=== PATIENT | male | born 1960 | race Caucasian/White ===

== ENCOUNTER 2017-11-16 05:33 | Outpatient (RCR) | payer BC, SELFPAY ==
[2017-11-16] MEDS: Normal Saline Flush 10 ML SYR IVP (11:40)
[2017-11-16] MEDS: Heparin 500 UNITS/5 ML SYRINGE IV (11:40)
[2017-11-16 12:05] LABS: Abs Immature Grans 0.01 k/cumm (0.0-0.09); Absolute Basophil Count 0.02 k/cumm (0.0-0.2); Absolute Eosinophil Count 0.16 k/cumm (0.0-0.7); Absolute Lymphocyte Count 2.14 k/cumm (1.2-3.4); Absolute Monocyte Count 0.56 k/cumm (0.11-0.7); Absolute Neutrophil Count 2.32 k/cumm (1.2-6.7); Basophils % 0.4; Eosinophils % 3.1; HCT 41.5 % (40.0-50.0); HGB 14.1 g/dL (13.5-17.5); Immature Grans % 0.2; Lymphocytes % 41.1; Mean Corpuscular Hemoglobin 31.8 pg (27.0-33.0); Mean Corpuscular Volume 93.5 fL (80-95); Mean Platelet Volume 9.1 fL (8.0-11.0); Monocytes % 10.7; Neutrophils % 44.5; Platelet Count 174 x1000/uL (130-400); RBC 4.44 m/cumm (4.50-6.00); RBC Distribution Width 14.9 % (11.8-14.1); White Blood Cell Count 5.21 k/cumm (4.4-10.8)
[2017-11-16 12:22] LABS: ALT 34 U/L (12-78); AST 26 U/L (15-37); Albumin 3.5 g/dL (3.4-5.0); Alkaline Phosphatase 108 U/L (46-116); Anion Gap 6.5 mmol/L (3-11); BUN 14 mg/dL (7-18); Bilirubin, Total 0.4 mg/dL (0.2-1.0); CO2 31.5 mmol/L (21.0-32.0); CREATININE 1.02 mg/dL (0.70-1.30); Calcium 8.7 mg/dL (8.5-10.1); Chloride 102 mmol/L (98-107); Glucose 103 mg/dL (70-100); Potassium 4.2 mmol/L (3.5-5.1); Sodium 140 mmol/L (136-145); Total Protein 7.5 g/dL (6.4-8.2)
[2017-11-30] MEDS: Heparin 500 UNITS/5 ML SYRINGE IV (13:05)
[2017-11-30] MEDS: Normal Saline Flush 10 ML SYR IVP (13:10)
[2017-11-30 14:09] LABS: Abs Immature Grans 0.02 k/cumm (0.0-0.09); Absolute Basophil Count 0.01 k/cumm (0.0-0.2); Absolute Eosinophil Count 0.12 k/cumm (0.0-0.7); Absolute Lymphocyte Count 2.15 k/cumm (1.2-3.4); Absolute Monocyte Count 0.41 k/cumm (0.11-0.7); Absolute Neutrophil Count 2.62 k/cumm (1.2-6.7); Basophils % 0.2; Eosinophils % 2.3; HCT 43.5 % (40.0-50.0); HGB 14.6 g/dL (13.5-17.5); Immature Grans % 0.4; Lymphocytes % 40.3; Mean Corp. HGB Concentration 33.6 g/dL (32.0-36.0); Mean Corpuscular Hemoglobin 31.3 pg (27.0-33.0); Mean Corpuscular Volume 93.1 fL (80-95); Mean Platelet Volume 9.6 fL (8.0-11.0); Monocytes % 7.7; Neutrophils % 49.1; Platelet Count 156 x1000/uL (130-400); RBC 4.67 m/cumm (4.50-6.00); RBC Distribution Width 15.3 % (11.8-14.1); White Blood Cell Count 5.33 k/cumm (4.4-10.8)
[2017-11-30 14:28] LABS: ALT 40 U/L (12-78); AST 24 U/L (15-37); Albumin 3.5 g/dL (3.4-5.0); Alkaline Phosphatase 100 U/L (46-116); Anion Gap 9.5 mmol/L (3-11); BUN 18 mg/dL (7-18); Bilirubin, Total 0.5 mg/dL (0.2-1.0); CO2 28.5 mmol/L (21.0-32.0); CREATININE 1.01 mg/dL (0.70-1.30); Calcium 8.7 mg/dL (8.5-10.1); Chloride 101 mmol/L (98-107); Glucose 135 mg/dL (70-100); Potassium 3.7 mmol/L (3.5-5.1); Sodium 139 mmol/L (136-145); Total Protein 7.6 g/dL (6.4-8.2)
[2017-12-03 10:07] LABS: CEA 2.6 ng/ml
== END 2017-12-07 ==
LOC: INF 11-30 05:33
PROVIDERS: PCP Internal Medicine; Visit Provider Internal Medicine Hematology & Oncology
DX: C20 Malignant neoplasm of rectum (principal); C78.00 Secondary malignant neoplasm of unspecified lung; Z45.2 Encounter for adjustment and management of vascular access device
CPT/HCPCS: 36591; 80053; 82378; 85025

== ENCOUNTER 2018-01-04 00:43 | Outpatient (RCR) | payer BC, SELFPAY ==
[2017-12-28] MEDS: Normal Saline Flush 10 ML SYR 30 ML IVP (13:30)
[2017-12-28] MEDS: Heparin 500 UNITS/5 ML SYRINGE (13:30)
[2017-12-28 13:57] LABS: HCT 34.9 % (40.0-50.0); HGB 11.6 g/dL (13.5-17.5); Mean Corp. HGB Concentration 33.2 g/dL (32.0-36.0); Mean Corpuscular Hemoglobin 32.4 pg (27.0-33.0); Mean Corpuscular Volume 97.5 fL (80-95); Mean Platelet Volume 9.1 fL (8.0-11.0); Platelet Count 355 x1000/uL (130-400); RBC 3.58 m/cumm (4.50-6.00); RBC Distribution Width 15.7 % (11.8-14.1); White Blood Cell Count 6.19 k/cumm (4.4-10.8)
[2017-12-28 14:09] LABS: ALT 39 U/L (12-78); AST 26 U/L (15-37); Albumin 3.5 g/dL (3.4-5.0); Alkaline Phosphatase 98 U/L (46-116); Anion Gap 8.8 mmol/L (3-11); BUN 17 mg/dL (7-18); Bilirubin, Total 0.4 mg/dL (0.2-1.0); CO2 28.2 mmol/L (21.0-32.0); CREATININE 0.98 mg/dL (0.70-1.30); Chloride 102 mmol/L (98-107); Glucose 111 mg/dL (70-100); Potassium 4.1 mmol/L (3.5-5.1); Sodium 139 mmol/L (136-145); Total Protein 7.6 g/dL (6.4-8.2)
[2017-12-28 14:17] LABS: Absolute Neutrophil Count 5.08 k/cumm (1.2-6.7)
[2017-12-28 14:18] LABS: Absolute Monocyte Count 0.56 k/cumm (0.11-0.7)
[2017-12-28 14:19] LABS: Anisocytosis 1+; Diff Comment Manual Differential; Polychromasia Present
[2018-01-04] MEDS: Normal Saline Flush 10 ML SYR 30 ML IVP (13:10)
[2018-01-04] MEDS: Heparin 500 UNITS/5 ML SYRINGE IV (13:10)
[2018-01-04 13:33] LABS: Abs Immature Grans 0.06 k/cumm (0.0-0.09); Absolute Basophil Count 0.05 k/cumm (0.0-0.2); Absolute Lymphocyte Count 1.41 k/cumm (1.2-3.4); Absolute Monocyte Count 0.73 k/cumm (0.11-0.7); Absolute Neutrophil Count 3.14 k/cumm (1.2-6.7); Basophils % 0.9; Eosinophils % 1.8; HCT 37.8 % (40.0-50.0); HGB 12.4 g/dL (13.5-17.5); Immature Grans % 1.1; Lymphocytes % 25.7; Mean Corp. HGB Concentration 32.8 g/dL (32.0-36.0); Mean Corpuscular Hemoglobin 32.5 pg (27.0-33.0); Mean Corpuscular Volume 99.2 fL (80-95); Mean Platelet Volume 9.5 fL (8.0-11.0); Monocytes % 13.3; Neutrophils % 57.2; Platelet Count 265 x1000/uL (130-400); RBC 3.81 m/cumm (4.50-6.00); White Blood Cell Count 5.49 k/cumm (4.4-10.8)
[2018-01-04 13:42] LABS: ALT 33 U/L (12-78); AST 25 U/L (15-37); Albumin 3.4 g/dL (3.4-5.0); Alkaline Phosphatase 97 U/L (46-116); BUN 15 mg/dL (7-18); Bilirubin, Total 0.4 mg/dL (0.2-1.0); CREATININE 0.95 mg/dL (0.70-1.30); Chloride 103 mmol/L (98-107); Glucose 90 mg/dL (70-100); Potassium 3.8 mmol/L (3.5-5.1); Sodium 140 mmol/L (136-145); Total Protein 7.1 g/dL (6.4-8.2)
== END 2018-01-06 23:59 | disposition home or self-care (01) ==
LOC: INF 00:43
PROVIDERS: PCP Internal Medicine; Visit Provider Internal Medicine Hematology & Oncology
DX: C20 Malignant neoplasm of rectum (principal); C78.00 Secondary malignant neoplasm of unspecified lung; Z45.2 Encounter for adjustment and management of vascular access device
CPT/HCPCS: 36591; 80053; 82378; 85025

== ENCOUNTER 2018-01-28 00:45 | Outpatient (RCR) | payer BC, SELFPAY ==
[2018-01-18] MEDS: Normal Saline Flush 10 ML SYR IVP (07:10)
[2018-01-18] MEDS: Heparin 500 UNITS/5 ML SYRINGE IV (07:10)
[2018-01-18 07:26] LABS: Abs Immature Grans 0.03 k/cumm (0.0-0.09); Absolute Basophil Count 0.02 k/cumm (0.0-0.2); Absolute Eosinophil Count 0.32 k/cumm (0.0-0.7); Absolute Lymphocyte Count 1.36 k/cumm (1.2-3.4); Absolute Monocyte Count 0.44 k/cumm (0.11-0.7); Absolute Neutrophil Count 2.42 k/cumm (1.2-6.7); Basophils % 0.4; HCT 39.9 % (40.0-50.0); HGB 13.1 g/dL (13.5-17.5); Immature Grans % 0.7; Lymphocytes % 29.6; Mean Corp. HGB Concentration 32.8 g/dL (32.0-36.0); Mean Corpuscular Hemoglobin 32.8 pg (27.0-33.0); Mean Platelet Volume 9.8 fL (8.0-11.0); Monocytes % 9.6; Neutrophils % 52.7; Platelet Count 223 x1000/uL (130-400); RBC 3.99 m/cumm (4.50-6.00); White Blood Cell Count 4.59 k/cumm (4.4-10.8)
[2018-01-18 07:37] LABS: ALT 56 U/L (12-78); AST 40 U/L (15-37); Albumin 3.3 g/dL (3.4-5.0); Alkaline Phosphatase 102 U/L (46-116); BUN 6 mg/dL (7-18); Bilirubin, Total 0.4 mg/dL (0.2-1.0); Calcium 8.9 mg/dL (8.5-10.1); Chloride 107 mmol/L (98-107); Glucose 103 mg/dL (70-100); Potassium 3.8 mmol/L (3.5-5.1); Sodium 144 mmol/L (136-145)
[2018-01-21 10:05] LABS: CEA 2.9 ng/ml
[2018-01-28] MEDS: Normal Saline Flush 10 ML SYR IVP (07:55)
[2018-01-28 08:13] LABS: Abs Immature Grans 0.04 k/cumm (0.0-0.09); Absolute Basophil Count 0.02 k/cumm (0.0-0.2); Absolute Eosinophil Count 0.22 k/cumm (0.0-0.7); Absolute Lymphocyte Count 1.14 k/cumm (1.2-3.4); Absolute Monocyte Count 0.52 k/cumm (0.11-0.7); Absolute Neutrophil Count 2.42 k/cumm (1.2-6.7); Basophils % 0.5; HGB 14.2 g/dL (13.5-17.5); Immature Grans % 0.9; Lymphocytes % 26.1; Mean Corpuscular Hemoglobin 33.1 pg (27.0-33.0); Mean Corpuscular Volume 100.2 fL (80-95); Mean Platelet Volume 9.6 fL (8.0-11.0); Monocytes % 11.9; Neutrophils % 55.6; Platelet Count 221 x1000/uL (130-400); RBC 4.29 m/cumm (4.50-6.00); RBC Distribution Width 13.3 % (11.8-14.1); White Blood Cell Count 4.36 k/cumm (4.4-10.8)
[2018-01-28 08:44] LABS: ALT 33 U/L (12-78); AST 19 U/L (15-37); Albumin 3.3 g/dL (3.4-5.0); Alkaline Phosphatase 79 U/L (46-116); BUN 9 mg/dL (7-18); Bilirubin, Total 0.7 mg/dL (0.2-1.0); Calcium 8.9 mg/dL (8.5-10.1); Chloride 103 mmol/L (98-107); Glucose 98 mg/dL (70-100); Sodium 141 mmol/L (136-145); Total Protein 7.1 g/dL (6.4-8.2)
== END 2018-02-06 23:59 | disposition home or self-care (01) ==
LOC: INF 00:45
PROVIDERS: PCP Internal Medicine; Visit Provider Internal Medicine Hematology & Oncology
DX: C20 Malignant neoplasm of rectum (principal); Z45.2 Encounter for adjustment and management of vascular access device
CPT/HCPCS: 36415; 36591; 80053; 82378; 85025

== ENCOUNTER 2018-03-08 00:46 | Outpatient (RCR) | payer BC, SELFPAY ==
[2018-02-11] MEDS: Normal Saline Flush 10 ML SYR IVP (10:05)
[2018-02-11 10:29] LABS: Abs Immature Grans 0.02 k/cumm (0.0-0.09); Absolute Basophil Count 0.02 k/cumm (0.0-0.2); Absolute Eosinophil Count 0.15 k/cumm (0.0-0.7); Absolute Lymphocyte Count 1.13 k/cumm (1.2-3.4); Absolute Monocyte Count 0.34 k/cumm (0.11-0.7); Absolute Neutrophil Count 2.17 k/cumm (1.2-6.7); Basophils % 0.5; Eosinophils % 3.9; HCT 43.1 % (40.0-50.0); HGB 14.1 g/dL (13.5-17.5); Immature Grans % 0.5; Lymphocytes % 29.5; Mean Corp. HGB Concentration 32.7 g/dL (32.0-36.0); Mean Corpuscular Hemoglobin 32.8 pg (27.0-33.0); Mean Corpuscular Volume 100.2 fL (80-95); Mean Platelet Volume 9.5 fL (8.0-11.0); Monocytes % 8.9; Neutrophils % 56.7; Platelet Count 185 x1000/uL (130-400); RBC Distribution Width 12.9 % (11.8-14.1); White Blood Cell Count 3.83 k/cumm (4.4-10.8)
[2018-02-11 10:31] LABS: Bilirubin Negative (Negative); Blood Negative (Negative); Clarity Clear; Glucose Negative (Negative); Ketones Negative (Negative); Leukocyte Esterase Negative (Negative); Nitrite Negative (Negative); Urobilinogen 0.2 EU/dL (Up TO 0.2); pH 6.5 (5-8)
[2018-02-11 10:42] LABS: ALT 28 U/L (12-78); AST 20 U/L (15-37); Albumin 3.6 g/dL (3.4-5.0); Alkaline Phosphatase 79 U/L (46-116); BUN 9 mg/dL (7-18); Bilirubin, Total 0.5 mg/dL (0.2-1.0); CREATININE 0.93 mg/dL (0.70-1.30); Calcium 8.9 mg/dL (8.5-10.1); Chloride 104 mmol/L (98-107); Glucose 113 mg/dL (70-100); Sodium 141 mmol/L (136-145); Total Protein 7.2 g/dL (6.4-8.2)
[2018-02-12 11:31] LABS: CEA 1.8 ng/ml
[2018-02-22] MEDS: Normal Saline Flush 10 ML SYR IVP (14:10)
[2018-02-22] MEDS: Heparin 500 UNITS/5 ML SYRINGE IV (14:35)
[2018-02-22 14:49] LABS: Abs Immature Grans 0.01 k/cumm (0.0-0.09); Absolute Basophil Count 0.02 k/cumm (0.0-0.2); Absolute Eosinophil Count 0.11 k/cumm (0.0-0.7); Absolute Lymphocyte Count 1.22 k/cumm (1.2-3.4); Absolute Monocyte Count 0.37 k/cumm (0.11-0.7); Absolute Neutrophil Count 1.24 k/cumm (1.2-6.7); Basophils % 0.7; Eosinophils % 3.7; HCT 39.9 % (40.0-50.0); HGB 13.2 g/dL (13.5-17.5); Immature Grans % 0.3; Lymphocytes % 41.1; Mean Corp. HGB Concentration 33.1 g/dL (32.0-36.0); Mean Corpuscular Hemoglobin 33.5 pg (27.0-33.0); Mean Corpuscular Volume 101.3 fL (80-95); Mean Platelet Volume 9.6 fL (8.0-11.0); Monocytes % 12.5; Neutrophils % 41.7; Platelet Count 195 x1000/uL (130-400); RBC 3.94 m/cumm (4.50-6.00); RBC Distribution Width 12.9 % (11.8-14.1); White Blood Cell Count 2.97 k/cumm (4.4-10.8)
[2018-02-22 15:02] LABS: ALT 42 U/L (12-78); AST 30 U/L (15-37); Albumin 3.5 g/dL (3.4-5.0); Alkaline Phosphatase 72 U/L (46-116); Anion Gap 5.5 mmol/L (3-11); BUN 10 mg/dL (7-18); Bilirubin, Total 0.4 mg/dL (0.2-1.0); CO2 29.5 mmol/L (21.0-32.0); CREATININE 0.96 mg/dL (0.70-1.30); Chloride 104 mmol/L (98-107); Glucose 98 mg/dL (70-100); Potassium 3.8 mmol/L (3.5-5.1); Sodium 139 mmol/L (136-145)
[2018-02-22 15:07] LABS: Diff Comment Diff Reviewed; RBC Morphology Normal
[2018-02-25 09:55] LABS: CEA 1.4 ng/ml
[2018-03-08 07:56] LABS: Absolute Basophil Count 0.02 k/cumm (0.0-0.2); Absolute Eosinophil Count 0.06 k/cumm (0.0-0.7); Absolute Lymphocyte Count 0.83 k/cumm (1.2-3.4); Absolute Monocyte Count 0.33 k/cumm (0.11-0.7); Absolute Neutrophil Count 0.69 k/cumm (1.2-6.7); Eosinophils % 3.1; Mean Corp. HGB Concentration 33.3 g/dL (32.0-36.0); Mean Corpuscular Hemoglobin 33.2 pg (27.0-33.0); Mean Corpuscular Volume 99.5 fL (80-95); Mean Platelet Volume 9.8 fL (8.0-11.0); Monocytes % 17.1; Neutrophils % 35.8; Platelet Count 183 x1000/uL (130-400); RBC 3.92 m/cumm (4.50-6.00); RBC Distribution Width 12.7 % (11.8-14.1)
[2018-03-08 08:08] LABS: ALT 52 U/L (12-78); AST 34 U/L (15-37); Albumin 3.6 g/dL (3.4-5.0); Alkaline Phosphatase 75 U/L (46-116); Anion Gap 8.7 mmol/L (3-11); BUN 8 mg/dL (7-18); Bilirubin, Total 0.4 mg/dL (0.2-1.0); CO2 28.3 mmol/L (21.0-32.0); CREATININE 0.92 mg/dL (0.70-1.30); Calcium 8.9 mg/dL (8.5-10.1); Chloride 104 mmol/L (98-107); Glucose 121 mg/dL (70-100); Potassium 4.1 mmol/L (3.5-5.1); Sodium 141 mmol/L (136-145); Total Protein 7.1 g/dL (6.4-8.2)
[2018-03-08] MEDS: Normal Saline Flush 10 ML SYR IVP (08:33)
[2018-03-08] MEDS: Heparin 500 UNITS/5 ML SYRINGE IV (08:33)
[2018-03-08 09:25] LABS: White Blood Cell Count 1.93 k/cumm (4.4-10.8)
[2018-03-11 08:54] LABS: CEA 1.2 ng/ml
== END 2018-03-08 23:59 | disposition home or self-care (01) ==
LOC: INF 00:46
PROVIDERS: PCP Internal Medicine; Visit Provider Internal Medicine Hematology & Oncology
DX: C20 Malignant neoplasm of rectum (principal); Z45.2 Encounter for adjustment and management of vascular access device; C78.00 Secondary malignant neoplasm of unspecified lung
CPT/HCPCS: 36591; 80053; 81003; 82378; 85025

== ENCOUNTER 2018-04-05 01:29 | Outpatient (RCR) | payer BC, SELFPAY ==
[2018-03-11] MEDS: Normal Saline Flush 10 ML SYR IVP (07:24)
[2018-03-11 07:30] LABS: Absolute Basophil Count 0.04 k/cumm (0.0-0.2); Absolute Eosinophil Count 0.18 k/cumm (0.0-0.7); Absolute Monocyte Count 0.23 k/cumm (0.11-0.7); Absolute Neutrophil Count 1.18 k/cumm (1.2-6.7); Basophils % 1.5; Eosinophils % 6.6; HGB 13.7 g/dL (13.5-17.5); Lymphocytes % 40.3; Mean Corp. HGB Concentration 33.4 g/dL (32.0-36.0); Mean Corpuscular Hemoglobin 33.3 pg (27.0-33.0); Mean Corpuscular Volume 99.8 fL (80-95); Mean Platelet Volume 9.5 fL (8.0-11.0); Monocytes % 8.4; Neutrophils % 43.2; Platelet Count 181 x1000/uL (130-400); RBC 4.11 m/cumm (4.50-6.00); RBC Distribution Width 12.9 % (11.8-14.1); White Blood Cell Count 2.73 k/cumm (4.4-10.8)
[2018-03-26] MEDS: Normal Saline Flush 10 ML SYR IVP (07:26)
[2018-03-26 07:28] LABS: Absolute Basophil Count 0.02 k/cumm (0.0-0.2); Absolute Eosinophil Count 0.21 k/cumm (0.0-0.7); Absolute Lymphocyte Count 1.04 k/cumm (1.2-3.4); Absolute Monocyte Count 0.22 k/cumm (0.11-0.7); Absolute Neutrophil Count 0.62 k/cumm (1.2-6.7); Basophils % 0.9; HCT 42.1 % (40.0-50.0); HGB 14.1 g/dL (13.5-17.5); Lymphocytes % 49.3; Mean Corp. HGB Concentration 33.5 g/dL (32.0-36.0); Mean Corpuscular Hemoglobin 33.2 pg (27.0-33.0); Mean Corpuscular Volume 99.1 fL (80-95); Mean Platelet Volume 9.3 fL (8.0-11.0); Monocytes % 10.4; Neutrophils % 29.4; Platelet Count 166 x1000/uL (130-400); RBC 4.25 m/cumm (4.50-6.00); RBC Distribution Width 13.2 % (11.8-14.1); White Blood Cell Count 2.11 k/cumm (4.4-10.8)
[2018-03-26 07:42] LABS: ALT 86 U/L (12-78); AST 54 U/L (15-37); Albumin 3.3 g/dL (3.4-5.0); Alkaline Phosphatase 80 U/L (46-116); Anion Gap 8.7 mmol/L (3-11); BUN 12 mg/dL (7-18); Bilirubin, Total 0.4 mg/dL (0.2-1.0); CO2 28.3 mmol/L (21.0-32.0); CREATININE 0.95 mg/dL (0.70-1.30); Calcium 9.1 mg/dL (8.5-10.1); Chloride 105 mmol/L (98-107); Glucose 128 mg/dL (70-100); Potassium 3.9 mmol/L (3.5-5.1); Sodium 142 mmol/L (136-145); Total Protein 6.7 g/dL (6.4-8.2)
[2018-03-26 07:51] LABS: Diff Comment Manual Differential; Polychromasia Present
[2018-03-27 10:31] LABS: CEA 1.2 ng/ml
[2018-04-05] MEDS: Normal Saline Flush 10 ML SYR IVP (10:51)
[2018-04-05 11:11] LABS: Abs Immature Grans 0.08 k/cumm (0.0-0.09); HCT 43.2 % (40.0-50.0); HGB 14.2 g/dL (13.5-17.5); Mean Corp. HGB Concentration 32.9 g/dL (32.0-36.0); Mean Corpuscular Hemoglobin 32.4 pg (27.0-33.0); Mean Corpuscular Volume 98.6 fL (80-95); Platelet Count 188 x1000/uL (130-400); RBC 4.38 m/cumm (4.50-6.00); RBC Distribution Width 13.5 % (11.8-14.1); White Blood Cell Count 3.27 k/cumm (4.4-10.8)
[2018-04-05 11:25] LABS: ALT 68 U/L (12-78); AST 47 U/L (15-37); Albumin 3.6 g/dL (3.4-5.0); Alkaline Phosphatase 93 U/L (46-116); Anion Gap 7.8 mmol/L (3-11); BUN 9 mg/dL (7-18); Bilirubin, Total 0.3 mg/dL (0.2-1.0); CO2 28.2 mmol/L (21.0-32.0); CREATININE 0.91 mg/dL (0.70-1.30); Calcium 8.9 mg/dL (8.5-10.1); Chloride 107 mmol/L (98-107); Glucose 86 mg/dL (70-100); Potassium 3.8 mmol/L (3.5-5.1); Sodium 143 mmol/L (136-145); Total Protein 7.2 g/dL (6.4-8.2)
[2018-04-05 11:33] LABS: Absolute Basophil Count 0.03 k/cumm (0.0-0.2); Absolute Eosinophil Count 0.23 k/cumm (0.0-0.7); Absolute Lymphocyte Count 1.05 k/cumm (1.2-3.4); Absolute Monocyte Count 0.33 k/cumm (0.11-0.7); Atypical Lymphocytes % 3
[2018-04-05 11:34] LABS: Diff Comment Manual Differential; RBC Morphology Normal
== END 2018-04-08 23:59 | disposition home or self-care (01) ==
LOC: INF 01:29
PROVIDERS: PCP Internal Medicine; Visit Provider Internal Medicine Hematology & Oncology
DX: C20 Malignant neoplasm of rectum (principal); C78.00 Secondary malignant neoplasm of unspecified lung; Z45.2 Encounter for adjustment and management of vascular access device
CPT/HCPCS: 36591; 80053; 82378; 85025

== ENCOUNTER 2018-04-19 00:41 | Outpatient (RCR) | payer BC, SELFPAY ==
[2018-04-19] MEDS: Heparin 500 UNITS/5 ML SYRINGE IV (12:13)
[2018-04-19] MEDS: Normal Saline Flush 10 ML SYR IVP (12:13)
[2018-04-19 12:21] LABS: Abs Immature Grans 0.09 k/cumm (0.0-0.09); Absolute Basophil Count 0.03 k/cumm (0.0-0.2); Absolute Eosinophil Count 0.13 k/cumm (0.0-0.7); Absolute Lymphocyte Count 1.38 k/cumm (1.2-3.4); Absolute Monocyte Count 0.67 k/cumm (0.11-0.7); Absolute Neutrophil Count 7.11 k/cumm (1.2-6.7); Basophils % 0.3; Eosinophils % 1.4; HCT 39.2 % (40.0-50.0); Lymphocytes % 14.7; Mean Corp. HGB Concentration 33.2 g/dL (32.0-36.0); Mean Corpuscular Hemoglobin 32.6 pg (27.0-33.0); Mean Corpuscular Volume 98.2 fL (80-95); Mean Platelet Volume 9.3 fL (8.0-11.0); Monocytes % 7.1; Neutrophils % 75.5; Platelet Count 186 x1000/uL (130-400); RBC 3.99 m/cumm (4.50-6.00); RBC Distribution Width 13.6 % (11.8-14.1); White Blood Cell Count 9.41 k/cumm (4.4-10.8)
[2018-04-19 12:30] LABS: ALT 69 U/L (12-78); AST 34 U/L (15-37); Albumin 3.6 g/dL (3.4-5.0); Alkaline Phosphatase 129 U/L (46-116); Anion Gap 10.5 mmol/L (3-11); BUN 13 mg/dL (7-18); Bilirubin, Total 0.4 mg/dL (0.2-1.0); CO2 27.5 mmol/L (21.0-32.0); CREATININE 1.06 mg/dL (0.70-1.30); Calcium 9.6 mg/dL (8.5-10.1); Chloride 102 mmol/L (98-107); Glucose 111 mg/dL (70-100); Potassium 3.6 mmol/L (3.5-5.1); Sodium 140 mmol/L (136-145); Total Protein 7.5 g/dL (6.4-8.2)
[2018-04-22 08:28] LABS: CEA <0.5 ng/ml
== END 2018-05-09 23:59 | disposition home or self-care (01) ==
LOC: INF 00:41
PROVIDERS: PCP Internal Medicine; Visit Provider Internal Medicine Hematology & Oncology
DX: C20 Malignant neoplasm of rectum (principal); Z45.2 Encounter for adjustment and management of vascular access device
CPT/HCPCS: 36591; 80053; 82378; 85025

== ENCOUNTER 2018-05-28 00:23 | Outpatient (RCR) | payer BC, SELFPAY ==
[2018-05-14] MEDS: Normal Saline Flush 10 ML SYR IVP (10:23)
[2018-05-14 10:43] LABS: Abs Immature Grans 0.03 k/cumm (0.0-0.09); Absolute Basophil Count 0.05 k/cumm (0.0-0.2); Absolute Eosinophil Count 0.22 k/cumm (0.0-0.7); Absolute Lymphocyte Count 0.92 k/cumm (1.2-3.4); Absolute Monocyte Count 0.43 k/cumm (0.11-0.7); Absolute Neutrophil Count 1.57 k/cumm (1.2-6.7); Basophils % 1.6; Eosinophils % 6.8; HCT 42.4 % (40.0-50.0); HGB 13.8 g/dL (13.5-17.5); Immature Grans % 0.9; Lymphocytes % 28.6; Mean Corp. HGB Concentration 32.5 g/dL (32.0-36.0); Mean Corpuscular Hemoglobin 32.5 pg (27.0-33.0); Mean Platelet Volume 10.2 fL (8.0-11.0); Monocytes % 13.4; Neutrophils % 48.7; Platelet Count 195 x1000/uL (130-400); RBC 4.24 m/cumm (4.50-6.00); RBC Distribution Width 14.7 % (11.8-14.1); White Blood Cell Count 3.22 k/cumm (4.4-10.8)
[2018-05-14 10:54] LABS: ALT 54 U/L (12-78); AST 31 U/L (15-37); Albumin 3.4 g/dL (3.4-5.0); Alkaline Phosphatase 98 U/L (46-116); Anion Gap 7.9 mmol/L (3-11); BUN 8 mg/dL (7-18); Bilirubin, Total 0.7 mg/dL (0.2-1.0); CO2 29.1 mmol/L (21.0-32.0); CREATININE 0.89 mg/dL (0.70-1.30); Chloride 105 mmol/L (98-107); Glucose 92 mg/dL (70-100); Potassium 4.1 mmol/L (3.5-5.1); Sodium 142 mmol/L (136-145); Total Protein 7.1 g/dL (6.4-8.2)
[2018-05-15 08:51] LABS: CEA 0.8 ng/ml
[2018-05-28] MEDS: Normal Saline Flush 10 ML SYR IVP (07:05)
[2018-05-28 07:23] LABS: Abs Immature Grans 0.04 k/cumm (0.0-0.09); Absolute Basophil Count 0.04 k/cumm (0.0-0.2); Absolute Eosinophil Count 0.24 k/cumm (0.0-0.7); Absolute Lymphocyte Count 1.35 k/cumm (1.2-3.4); Absolute Monocyte Count 0.27 k/cumm (0.11-0.7); Absolute Neutrophil Count 2.37 k/cumm (1.2-6.7); Basophils % 0.9; Eosinophils % 5.6; HCT 41.3 % (40.0-50.0); HGB 13.6 g/dL (13.5-17.5); Immature Grans % 0.9; Lymphocytes % 31.3; Mean Corp. HGB Concentration 32.9 g/dL (32.0-36.0); Mean Corpuscular Hemoglobin 32.9 pg (27.0-33.0); Mean Platelet Volume 9.6 fL (8.0-11.0); Monocytes % 6.3; Platelet Count 189 x1000/uL (130-400); RBC 4.13 m/cumm (4.50-6.00); RBC Distribution Width 14.4 % (11.8-14.1); White Blood Cell Count 4.31 k/cumm (4.4-10.8)
[2018-05-28 07:37] LABS: ALT 45 U/L (12-78); AST 27 U/L (15-37); Albumin 3.3 g/dL (3.4-5.0); Alkaline Phosphatase 117 U/L (46-116); Anion Gap 7.1 mmol/L (3-11); BUN 7 mg/dL (7-18); Bilirubin, Total 0.4 mg/dL (0.2-1.0); CO2 30.9 mmol/L (21.0-32.0); CREATININE 0.92 mg/dL (0.70-1.30); Chloride 105 mmol/L (98-107); Glucose 120 mg/dL (70-100); Potassium 4.1 mmol/L (3.5-5.1); Sodium 143 mmol/L (136-145); Total Protein 7.2 g/dL (6.4-8.2)
[2018-05-29 09:21] LABS: CEA 0.9 ng/ml
== END 2018-06-06 23:59 | disposition home or self-care (01) ==
LOC: INF 00:23
PROVIDERS: PCP Internal Medicine; Visit Provider Internal Medicine Hematology & Oncology
DX: C20 Malignant neoplasm of rectum (principal); Z45.2 Encounter for adjustment and management of vascular access device
CPT/HCPCS: 36591; 80053; 82378; 85025

== ENCOUNTER 2018-06-24 01:24 | Outpatient (RCR) | payer BC, SELFPAY ==
[2018-06-13] MEDS: Normal Saline Flush 10 ML SYR IVP (09:38)
[2018-06-13] MEDS: Heparin 500 UNITS/5 ML SYRINGE IV (09:40)
[2018-06-13 09:47] LABS: Abs Immature Grans 0.13 k/cumm (0.0-0.09); Absolute Eosinophil Count 0.19 k/cumm (0.0-0.7); HCT 40.8 % (40.0-50.0); HGB 13.2 g/dL (13.5-17.5); Mean Corp. HGB Concentration 32.4 g/dL (32.0-36.0); Mean Corpuscular Hemoglobin 32.9 pg (27.0-33.0); Mean Corpuscular Volume 101.7 fL (80-95); Mean Platelet Volume 9.9 fL (8.0-11.0); Platelet Count 179 x1000/uL (130-400); RBC 4.01 m/cumm (4.50-6.00); RBC Distribution Width 14.7 % (11.8-14.1); White Blood Cell Count 4.68 k/cumm (4.4-10.8)
[2018-06-13 10:01] LABS: ALT 90 U/L (12-78); AST 64 U/L (15-37); Albumin 3.7 g/dL (3.4-5.0); Alkaline Phosphatase 109 U/L (46-116); Anion Gap 9.5 mmol/L (3-11); BUN 15 mg/dL (7-18); Bilirubin, Total 0.5 mg/dL (0.2-1.0); CO2 27.5 mmol/L (21.0-32.0); CREATININE 0.89 mg/dL (0.70-1.30); Chloride 103 mmol/L (98-107); Glucose 96 mg/dL (70-100); Potassium 4.2 mmol/L (3.5-5.1); Sodium 140 mmol/L (136-145); Total Protein 7.3 g/dL (6.4-8.2)
[2018-06-13 10:19] LABS: Absolute Basophil Count 0.05 k/cumm (0.0-0.2); Absolute Monocyte Count 0.23 k/cumm (0.11-0.7); Absolute Neutrophil Count 3.42 k/cumm (1.2-6.7); Atypical Lymphocytes % 3; Diff Comment Manual Differential
[2018-06-13 10:20] LABS: RBC Morphology Normal
[2018-06-14 10:27] LABS: CEA 0.9 ng/ml
[2018-06-24 10:47] LABS: Abs Immature Grans 0.03 k/cumm (0.0-0.09); Absolute Basophil Count 0.03 k/cumm (0.0-0.2); Absolute Eosinophil Count 0.28 k/cumm (0.0-0.7); Absolute Lymphocyte Count 0.95 k/cumm (1.2-3.4); Basophils % 0.6; HCT 41.3 % (40.0-50.0); HGB 13.3 g/dL (13.5-17.5); Immature Grans % 0.6; Lymphocytes % 20.3; Mean Corp. HGB Concentration 32.2 g/dL (32.0-36.0); Mean Corpuscular Hemoglobin 32.9 pg (27.0-33.0); Mean Corpuscular Volume 102.2 fL (80-95); Mean Platelet Volume 10.1 fL (8.0-11.0); Monocytes % 10.7; Neutrophils % 61.8; Platelet Count 226 x1000/uL (130-400); RBC 4.04 m/cumm (4.50-6.00); RBC Distribution Width 13.8 % (11.8-14.1); White Blood Cell Count 4.69 k/cumm (4.4-10.8)
[2018-06-24] MEDS: Normal Saline Flush 10 ML SYR IVP (11:03)
[2018-06-24 11:10] LABS: ALT 47 U/L (12-78); AST 30 U/L (15-37); Albumin 3.7 g/dL (3.4-5.0); Alkaline Phosphatase 84 U/L (46-116); Anion Gap 6.5 mmol/L (3-11); BUN 11 mg/dL (7-18); Bilirubin, Total 0.6 mg/dL (0.2-1.0); CO2 26.5 mmol/L (21.0-32.0); CREATININE 0.87 mg/dL (0.70-1.30); Chloride 103 mmol/L (98-107); Glucose 107 mg/dL (70-100); Sodium 136 mmol/L (136-145); Total Protein 7.2 g/dL (6.4-8.2)
== END 2018-07-07 23:59 | disposition home or self-care (01) ==
LOC: INF 01:24
PROVIDERS: PCP Internal Medicine; Visit Provider Internal Medicine Hematology & Oncology
DX: C20 Malignant neoplasm of rectum (principal); Z45.2 Encounter for adjustment and management of vascular access device
CPT/HCPCS: 36591; 80053; 82378; 85025

== ENCOUNTER 2018-07-18 00:52 | Outpatient (RCR) | payer BC, SELFPAY ==
[2018-07-18] MEDS: Heparin 500 UNITS/5 ML SYRINGE IV (09:15)
[2018-07-18] MEDS: Normal Saline Flush 10 ML SYR IVP (09:15)
[2018-07-18 09:57] LABS: Abs Immature Grans 0.01 k/cumm (0.0-0.09); Absolute Basophil Count 0.03 k/cumm (0.0-0.2); Absolute Eosinophil Count 0.29 k/cumm (0.0-0.7); Absolute Lymphocyte Count 1.28 k/cumm (1.2-3.4); Basophils % 0.7; Eosinophils % 7.2; HCT 41.2 % (40.0-50.0); HGB 13.3 g/dL (13.5-17.5); Immature Grans % 0.2; Lymphocytes % 31.9; Mean Corp. HGB Concentration 32.3 g/dL (32.0-36.0); Mean Corpuscular Hemoglobin 32.7 pg (27.0-33.0); Mean Corpuscular Volume 101.2 fL (80-95); Platelet Count 190 x1000/uL (130-400); RBC 4.07 m/cumm (4.50-6.00); White Blood Cell Count 4.01 k/cumm (4.4-10.8)
[2018-07-18 10:18] LABS: ALT 44 U/L (12-78); AST 27 U/L (15-37); Albumin 3.7 g/dL (3.4-5.0); Alkaline Phosphatase 85 U/L (46-116); Anion Gap 8.2 mmol/L (3-11); BUN 10 mg/dL (7-18); Bilirubin, Total 0.6 mg/dL (0.2-1.0); CO2 27.8 mmol/L (21.0-32.0); CREATININE 0.88 mg/dL (0.70-1.30); Calcium 8.8 mg/dL (8.5-10.1); Chloride 102 mmol/L (98-107); Glucose 99 mg/dL (70-100); Potassium 3.9 mmol/L (3.5-5.1); Sodium 138 mmol/L (136-145)
[2018-07-19 10:05] LABS: CEA 1.4 ng/ml
== END 2018-08-06 23:59 | disposition home or self-care (01) ==
LOC: INF 00:52
PROVIDERS: PCP Internal Medicine; Visit Provider Internal Medicine Hematology & Oncology
DX: C20 Malignant neoplasm of rectum (principal); Z45.2 Encounter for adjustment and management of vascular access device
CPT/HCPCS: 36591; 80053; 82378; 85025

== ENCOUNTER 2018-08-01 13:27 | Outpatient (RCR) | payer BC, SELFPAY ==
[2018-08-01] MEDS: Heparin 500 UNITS/5 ML SYRINGE IV (13:30)
[2018-08-01] MEDS: Normal Saline Flush 10 ML SYR IVP (13:30)
[2018-08-01 14:04] LABS: Abs Immature Grans 0.02 k/cumm (0.0-0.09); Absolute Basophil Count 0.02 k/cumm (0.0-0.2); Absolute Lymphocyte Count 1.47 k/cumm (1.2-3.4); Absolute Monocyte Count 0.67 k/cumm (0.11-0.7); Absolute Neutrophil Count 5.41 k/cumm (1.2-6.7); Basophils % 0.3; Eosinophils % 3.8; HCT 40.5 % (40.0-50.0); HGB 13.3 g/dL (13.5-17.5); Immature Grans % 0.3; Lymphocytes % 18.6; Mean Corp. HGB Concentration 32.8 g/dL (32.0-36.0); Mean Corpuscular Hemoglobin 32.7 pg (27.0-33.0); Mean Corpuscular Volume 99.5 fL (80-95); Mean Platelet Volume 10.3 fL (8.0-11.0); Monocytes % 8.5; Neutrophils % 68.5; Platelet Count 153 x1000/uL (130-400); RBC 4.07 m/cumm (4.50-6.00); RBC Distribution Width 12.8 % (11.8-14.1); White Blood Cell Count 7.89 k/cumm (4.4-10.8)
[2018-08-01 14:15] LABS: ALT 50 U/L (12-78); AST 26 U/L (15-37); Albumin 3.5 g/dL (3.4-5.0); Alkaline Phosphatase 112 U/L (46-116); Anion Gap 8.6 mmol/L (3-11); BUN 12 mg/dL (7-18); Bilirubin, Total 0.3 mg/dL (0.2-1.0); CO2 28.4 mmol/L (21.0-32.0); CREATININE 0.88 mg/dL (0.70-1.30); Calcium 8.6 mg/dL (8.5-10.1); Chloride 100 mmol/L (98-107); Glucose 113 mg/dL (70-100); Potassium 3.5 mmol/L (3.5-5.1); Sodium 137 mmol/L (136-145); Total Protein 6.9 g/dL (6.4-8.2)
[2018-08-02 13:03] LABS: CEA 1.5 ng/ml
== END 2018-08-06 23:59 | disposition home or self-care (01) ==
LOC: INF 13:27
PROVIDERS: PCP Internal Medicine; Visit Provider Internal Medicine Hematology & Oncology
DX: C20 Malignant neoplasm of rectum (principal); Z45.2 Encounter for adjustment and management of vascular access device
CPT/HCPCS: 36591; 80053; 82378; 85025

== ENCOUNTER 2018-08-12 01:04 | Outpatient (CLI) | payer BC, SELFPAY ==
[2018-08-12] MEDS: Omnipaque 350 MG/ML 50 ML BTL PO (07:39)
--- NOTE | 2018-08-12 08:56 | DI.CT_ITS ---
SYMPTOM/DIAGNOSIS: METASTATIC RECTAL CA, ON TREATMENT, INCREASING ABD/GLUTEAL PAIN, RESTAGING EXAM CHEST, ABDOMEN AND PELVIC CT: CT examination of the chest, abdomen and pelvis was performed utilizing biphasic imaging with intravenous infusion of 100 cc's of Omnipaque 350 and ingestion of dilute barium. The examination is compared with most recent study of 04/2018. Note is again made of multiple intrapulmonary nodules, the largest 13 mm. in right lower lobe and 12 mm. in left upper lobe, no gross interval change in appearance. 4.1 cm. in diameter subcarinal, low attenuation mass which may represent a cyst is unchanged in appearance. No other significant mediastinal adenopathy. No axillary or supraclavicular adenopathy. Tracheobronchial tree appears intact. No evidence of pulmonary embolic disease or other major vascular abnormality. The previously described right lobe hepatic lesion which is poorly defined is again seen and grossly unchanged at about 1 cm. No additional hepatic or splenic lesion identified at this time. Pancreas appears normal. Gallbladder and bile ducts are normal. Adrenals are unremarkable in appearance bilaterally. There are apparent multiple tiny bilateral renal cysts and small non obstructing left renal calculus is noted. Abdominal aorta is of normal diameter and no major vascular abnormality is seen. No mesenteric adenopathy is seen. Pelvic sidewall mass noted on previous study is grossly unchanged in appearance measuring roughly 52 by 23 mm. and lying adjacent to the left seminal vesicle. A 1 cm. left pararectal lymph node is again noted and unchanged. No additional pelvic adenopathy. Prior presumed bilateral inguinal hernia repair noted. No bony lesion identified involving scanned portions of the chest, abdomen or pelvis. No evidence of bowel obstruction or bowel mass. CONCLUSION: 1. No gross interval change in pulmonary metastases from 04/17/18. 2. No gross interval change in presumed liver metastasis since the previous examination. An additional questionable 1 cm. nodule is again also very questionably visible. 3. No change in pelvic sidewall mass or left perirectal lymph node. 4. No evidence of new metastatic disease.
[2018-08-12] MEDS: Omnipaque 350 MG/ML 100 ML BTL IJ (09:19)
[2018-08-12] MEDS: Normal Saline Flush 10 ML SYR IVP (09:21)
== END 2018-08-12 01:24 ==
PROVIDERS: PCP Internal Medicine; Visit Provider Nurse Practitioner Adult Health
DX: C20 Malignant neoplasm of rectum (principal); C78.02 Secondary malignant neoplasm of left lung; D37.6 Neoplasm of uncertain behavior of liver, gallbladder and bile ducts; R10.2 Pelvic and perineal pain
CPT/HCPCS: 74177; 71260; J3490; Q9967

== ENCOUNTER 2018-08-12 01:35 | Outpatient (RCR) | payer BC, SELFPAY ==
[2018-08-12] MEDS: Normal Saline Flush 10 ML SYR IVP (07:19)
[2018-08-12] MEDS: Heparin 500 UNITS/5 ML SYRINGE IV (07:19)
== END 2018-09-06 23:59 | disposition home or self-care (01) ==
LOC: INF 01:35
PROVIDERS: PCP Internal Medicine; Visit Provider Internal Medicine
DX: C20 Malignant neoplasm of rectum (principal); Z45.2 Encounter for adjustment and management of vascular access device
CPT/HCPCS: 96523

== ENCOUNTER 2018-08-27 00:44 | Outpatient (RCR) | payer BC, SELFPAY ==
[2018-08-16] MEDS: Heparin 500 UNITS/5 ML SYRINGE IV (12:05)
[2018-08-16] MEDS: Normal Saline Flush 10 ML SYR IVP (12:05)
[2018-08-16 12:19] LABS: Abs Immature Grans 0.15 k/cumm (0.0-0.09); Absolute Basophil Count 0.02 k/cumm (0.0-0.2); Absolute Eosinophil Count 0.16 k/cumm (0.0-0.7); Absolute Lymphocyte Count 1.46 k/cumm (1.2-3.4); Absolute Monocyte Count 0.88 k/cumm (0.11-0.7); Absolute Neutrophil Count 6.27 k/cumm (1.2-6.7); Basophils % 0.2; Eosinophils % 1.8; HCT 41.2 % (40.0-50.0); HGB 13.3 g/dL (13.5-17.5); Immature Grans % 1.7; Lymphocytes % 16.3; Mean Corp. HGB Concentration 32.3 g/dL (32.0-36.0); Mean Corpuscular Hemoglobin 32.1 pg (27.0-33.0); Mean Corpuscular Volume 99.5 fL (80-95); Mean Platelet Volume 9.7 fL (8.0-11.0); Monocytes % 9.8; Neutrophils % 70.2; Platelet Count 150 x1000/uL (130-400); RBC 4.14 m/cumm (4.50-6.00); RBC Distribution Width 13.2 % (11.8-14.1); White Blood Cell Count 8.94 k/cumm (4.4-10.8)
[2018-08-16 12:38] LABS: ALT 76 U/L (12-78); AST 37 U/L (15-37); Albumin 3.6 g/dL (3.4-5.0); Alkaline Phosphatase 114 U/L (46-116); Anion Gap 7.1 mmol/L (3-11); BUN 10 mg/dL (7-18); Bilirubin, Total 0.2 mg/dL (0.2-1.0); CO2 29.9 mmol/L (21.0-32.0); CREATININE 0.87 mg/dL (0.70-1.30); Chloride 104 mmol/L (98-107); Glucose 94 mg/dL (70-100); Potassium 4.2 mmol/L (3.5-5.1); Sodium 141 mmol/L (136-145)
[2018-08-19 11:13] LABS: CEA 1.4 ng/ml
[2018-08-27] MEDS: Normal Saline Flush 10 ML SYR IVP (10:00)
[2018-08-27 10:29] LABS: Abs Immature Grans 0.06 k/cumm (0.0-0.09); Absolute Basophil Count 0.04 k/cumm (0.0-0.2); Absolute Eosinophil Count 0.17 k/cumm (0.0-0.7); Absolute Lymphocyte Count 1.09 k/cumm (1.2-3.4); Absolute Monocyte Count 0.36 k/cumm (0.11-0.7); Absolute Neutrophil Count 1.64 k/cumm (1.2-6.7); Basophils % 1.2; Eosinophils % 5.1; HCT 41.5 % (40.0-50.0); HGB 13.6 g/dL (13.5-17.5); Immature Grans % 1.8; Lymphocytes % 32.4; Mean Corp. HGB Concentration 32.8 g/dL (32.0-36.0); Mean Corpuscular Hemoglobin 32.5 pg (27.0-33.0); Mean Corpuscular Volume 99.3 fL (80-95); Mean Platelet Volume 9.8 fL (8.0-11.0); Monocytes % 10.7; Neutrophils % 48.8; Platelet Count 197 x1000/uL (130-400); RBC 4.18 m/cumm (4.50-6.00); RBC Distribution Width 13.7 % (11.8-14.1); White Blood Cell Count 3.36 k/cumm (4.4-10.8)
[2018-08-27 10:46] LABS: ALT 73 U/L (12-78); AST 38 U/L (15-37); Albumin 3.4 g/dL (3.4-5.0); Alkaline Phosphatase 99 U/L (46-116); Anion Gap 8.4 mmol/L (3-11); BUN 11 mg/dL (7-18); Bilirubin, Total 0.5 mg/dL (0.2-1.0); CO2 28.6 mmol/L (21.0-32.0); CREATININE 0.95 mg/dL (0.70-1.30); Calcium 8.8 mg/dL (8.5-10.1); Chloride 103 mmol/L (98-107); Glucose 129 mg/dL (70-100); Potassium 3.7 mmol/L (3.5-5.1); Sodium 140 mmol/L (136-145); Total Protein 6.9 g/dL (6.4-8.2)
== END 2018-09-06 23:59 | disposition home or self-care (01) ==
LOC: INF 00:44
PROVIDERS: PCP Internal Medicine; Visit Provider Internal Medicine Hematology & Oncology
DX: C20 Malignant neoplasm of rectum (principal); Z45.2 Encounter for adjustment and management of vascular access device
CPT/HCPCS: 36591; 80053; 82378; 85025

== ENCOUNTER 2018-10-01 01:35 | Outpatient (RCR) | payer BC, SELFPAY ==
[2018-10-01] MEDS: Normal Saline Flush 10 ML SYR IVP (09:47)
[2018-10-01 09:59] LABS: Abs Immature Grans 0.02 k/cumm (0.0-0.09); Absolute Basophil Count 0.03 k/cumm (0.0-0.2); Absolute Eosinophil Count 0.28 k/cumm (0.0-0.7); Absolute Lymphocyte Count 1.11 k/cumm (1.2-3.4); Absolute Monocyte Count 0.45 k/cumm (0.11-0.7); Absolute Neutrophil Count 1.67 k/cumm (1.2-6.7); Basophils % 0.8; Eosinophils % 7.9; HCT 41.2 % (40.0-50.0); HGB 13.4 g/dL (13.5-17.5); Immature Grans % 0.6; Lymphocytes % 31.2; Mean Corp. HGB Concentration 32.5 g/dL (32.0-36.0); Mean Corpuscular Hemoglobin 32.5 pg (27.0-33.0); Mean Platelet Volume 9.4 fL (8.0-11.0); Monocytes % 12.6; Neutrophils % 46.9; Platelet Count 206 x1000/uL (130-400); RBC 4.12 m/cumm (4.50-6.00); RBC Distribution Width 13.8 % (11.8-14.1); White Blood Cell Count 3.56 k/cumm (4.4-10.8)
[2018-10-01 10:18] LABS: ALT 40 U/L (12-78); AST 29 U/L (15-37); Albumin 3.6 g/dL (3.4-5.0); Alkaline Phosphatase 94 U/L (46-116); Anion Gap 8.4 mmol/L (3-11); BUN 12 mg/dL (7-18); Bilirubin, Total 0.7 mg/dL (0.2-1.0); CO2 27.6 mmol/L (21.0-32.0); CREATININE 0.99 mg/dL (0.70-1.30); Calcium 8.8 mg/dL (8.5-10.1); Chloride 107 mmol/L (98-107); Glucose 93 mg/dL (70-100); Sodium 143 mmol/L (136-145); Total Protein 7.1 g/dL (6.4-8.2)
[2018-10-02 09:25] LABS: CEA 2.1 ng/ml
== END 2018-10-06 23:59 | disposition home or self-care (01) ==
LOC: INF 01:35
PROVIDERS: PCP Internal Medicine; Visit Provider Internal Medicine Hematology & Oncology
DX: C20 Malignant neoplasm of rectum (principal); Z45.2 Encounter for adjustment and management of vascular access device
CPT/HCPCS: 36591; 80053; 82378; 85025

== ENCOUNTER 2018-10-30 01:19 | Outpatient (RCR) | payer BC, SELFPAY ==
[2018-10-22] MEDS: Normal Saline Flush 10 ML SYR IVP (08:12)
[2018-10-22 08:48] LABS: Abs Immature Grans 0.03 k/cumm (0.0-0.09); Absolute Basophil Count 0.02 k/cumm (0.0-0.2); Absolute Lymphocyte Count 1.09 k/cumm (1.2-3.4); Absolute Monocyte Count 0.37 k/cumm (0.11-0.7); Absolute Neutrophil Count 1.28 k/cumm (1.2-6.7); Basophils % 0.7; Eosinophils % 6.7; HCT 41.6 % (40.0-50.0); HGB 13.6 g/dL (13.5-17.5); Lymphocytes % 36.5; Mean Corp. HGB Concentration 32.7 g/dL (32.0-36.0); Mean Corpuscular Hemoglobin 32.7 pg (27.0-33.0); Mean Platelet Volume 9.6 fL (8.0-11.0); Monocytes % 12.4; Neutrophils % 42.7; Platelet Count 224 x1000/uL (130-400); RBC 4.16 m/cumm (4.50-6.00); White Blood Cell Count 2.99 k/cumm (4.4-10.8)
[2018-10-22 09:01] LABS: ALT 47 U/L (12-78); AST 26 U/L (15-37); Albumin 3.5 g/dL (3.4-5.0); Alkaline Phosphatase 101 U/L (46-116); Anion Gap 9.6 mmol/L (3-11); BUN 9 mg/dL (7-18); Bilirubin, Total 0.4 mg/dL (0.2-1.0); CO2 27.4 mmol/L (21.0-32.0); CREATININE 0.75 mg/dL (0.70-1.30); Calcium 8.8 mg/dL (8.5-10.1); Chloride 104 mmol/L (98-107); Glucose 97 mg/dL (70-100); Potassium 3.8 mmol/L (3.5-5.1); Sodium 141 mmol/L (136-145); Total Protein 7.1 g/dL (6.4-8.2)
[2018-10-22 09:04] LABS: Diff Comment Agrees w/ Instrument; RBC Morphology Normal
[2018-10-23 09:27] LABS: CEA 1.8 ng/ml
[2018-10-30] MEDS: Heparin 500 UNITS/5 ML SYRINGE IV (07:19)
[2018-10-30] MEDS: Normal Saline Flush 10 ML SYR IVP (07:19)
[2018-10-30 07:42] LABS: Abs Immature Grans 0.14 k/cumm (0.0-0.09); Absolute Basophil Count 0.02 k/cumm (0.0-0.2); Absolute Eosinophil Count 0.14 k/cumm (0.0-0.7); Absolute Lymphocyte Count 1.85 k/cumm (1.2-3.4); Absolute Monocyte Count 1.15 k/cumm (0.11-0.7); Absolute Neutrophil Count 6.09 k/cumm (1.2-6.7); Basophils % 0.2; Eosinophils % 1.5; HCT 40.2 % (40.0-50.0); Immature Grans % 1.5; Lymphocytes % 19.7; Mean Corp. HGB Concentration 32.3 g/dL (32.0-36.0); Mean Corpuscular Hemoglobin 32.3 pg (27.0-33.0); Mean Corpuscular Volume 99.8 fL (80-95); Mean Platelet Volume 10.2 fL (8.0-11.0); Monocytes % 12.2; Neutrophils % 64.9; Platelet Count 164 x1000/uL (130-400); RBC 4.03 m/cumm (4.50-6.00); RBC Distribution Width 13.4 % (11.8-14.1); White Blood Cell Count 9.39 k/cumm (4.4-10.8)
[2018-10-30 07:43] LABS: ALT 34 U/L (12-78); AST 14 U/L (15-37); Albumin 3.3 g/dL (3.4-5.0); Alkaline Phosphatase 121 U/L (46-116); Anion Gap 8.4 mmol/L (3-11); BUN 11 mg/dL (7-18); Bilirubin, Total 0.3 mg/dL (0.2-1.0); CO2 29.6 mmol/L (21.0-32.0); CREATININE 0.84 mg/dL (0.70-1.30); Calcium 8.6 mg/dL (8.5-10.1); Chloride 104 mmol/L (98-107); Glucose 91 mg/dL (70-100); Potassium 4.2 mmol/L (3.5-5.1); Sodium 142 mmol/L (136-145); Total Protein 6.5 g/dL (6.4-8.2)
[2018-10-31 10:47] LABS: CEA 2.6 ng/ml
== END 2018-11-06 23:59 | disposition home or self-care (01) ==
LOC: INF 01:19
PROVIDERS: PCP Internal Medicine; Visit Provider Internal Medicine Hematology & Oncology
DX: C20 Malignant neoplasm of rectum (principal); C78.7 Secondary malignant neoplasm of liver and intrahepatic bile duct; C79.51 Secondary malignant neoplasm of bone; Z45.2 Encounter for adjustment and management of vascular access device
CPT/HCPCS: 36591; 80053; 82378; 85025

== ENCOUNTER 2018-10-30 07:51 | Outpatient (CLI) | payer BC, SELFPAY ==
[2018-10-30] MEDS: Omnipaque 350 MG/ML 50 ML BTL PO (08:26)
[2018-10-30] MEDS: Breeza Beverage 473 ML BTL 950 ML PO (08:27)
[2018-10-30] MEDS: Omnipaque 350 MG/ML 100 ML BTL IJ (08:56)
[2018-10-30] MEDS: Normal Saline Flush 10 ML SYR IJ (08:57)
--- NOTE | 2018-10-30 08:57 | DI.CT_ITS ---
SYMPTOM/DIAGNOSIS: PATIENT WITH METS, RECTAL CA WITH METS TO LIVER, RESTAGING. c20, c78.7 CT CHEST, ABDOMEN AND PELVIS: CT scan of the chest, abdomen and pelvis was performed following the uneventful administration of intravenous and oral contrast material. Comparison examination is 08/12/18 The liver is normal in size. The 1 cm hypodense lesion seen in the caudal aspect of the right lobe of the liver adjacent to the gallbladder is poorly visualized on the current examination, and the area measures approximately 8 mm in size. No new hepatic lesions are seen. The portal, superior mesenteric and splenic veins are patent. The gallbladder is negative. There is no biliary ductal dilatation. The pancreas and peripancreatic soft tissues are unremarkable as is the spleen. No adrenal masses present. The kidneys show normal and symmetric enhancement. There are bilateral renal cysts. There is a nonobstructing stone in the superior pole of the left kidney which is unchanged. The urinary bladder is intact. The reproductive organs are unremarkable. The abdominal aorta is of normal caliber with mild atherosclerosis. No significant abdominal or pelvic ascites or pneumoperitoneum is present. No new pelvic adenopathy is appreciated. The bowel shows no evidence of obstruction or inflammation. There is colonic diverticulosis but no evidence of acute diverticulitis. There is a normal appendix seen in the right lower quadrant of the abdomen. The soft tissues seen in the left pelvic sidewall is again noted and measures 5.4 cm. AP x 2.3 cm transverse. It appears to infiltrate the left seminal vesicle. This is unchanged. No acute osseous abnormalities identified. No aggressive osseous lesions are seen. IMPRESSION: Stable appearance of the abdomen and pelvis. Stable pelvic sidewall mass and hepatic lesion. No evidence of new metastatic disease. CT CHEST: The thoracic aorta is of normal caliber. No aneurysmal dilatation is seen. The heart size is within normal limits. No significant pericardial effusion is present. The tip of the indwelling central venous catheter is in good position in the superior vena cava. The central pulmonary arteries are unremarkable. There is again seen a 4.1 cm homogeneously low attenuation mass in the subcarinal region. No other thoracic adenopathy is appreciated. No pleural effusion or pneumothorax is present. There are again seen multiple pulmonary nodules. There has been no change in size of the 1.1 cm pulmonary nodule in the left upper lobe. There does not appear to be any significant change in size or number of the pulmonary nodules compared to the prior examination. No focal consolidating infiltrates are seen. The tracheobronchial tree is unremarkable. Degenerative changes are present in the spine. IMPRESSION: Stable thoracic metastatic disease.
== END 2018-10-30 08:11 ==
PROVIDERS: PCP Internal Medicine; Visit Provider Nurse Practitioner Adult Health
DX: C20 Malignant neoplasm of rectum (principal); C78.7 Secondary malignant neoplasm of liver and intrahepatic bile duct; Z12.89 Encounter for screening for malignant neoplasm of other sites; N20.0 Calculus of kidney; R91.8 Other nonspecific abnormal finding of lung field; R91.1 Solitary pulmonary nodule
CPT/HCPCS: 74177; 71260; J3490; Q9967

== ENCOUNTER 2018-11-06 12:25 | Outpatient (CLI) | payer BC, SELFPAY ==
--- NOTE | 2018-11-06 14:32 | DI.US_ITS ---
SYMPTOMS/DIAGNOSIS: BILATERAL LEG EDEMA, R60.0, ? DVT, ON CHEMO CURRENTLY BILATERAL LEG ULTRASOUND: RIGHT LEG ULTRASOUND: The study was carried out according to the usual protocol. The superficial, femoral, popliteal and proximal trifurcation in the superior portion of the leg are well seen. Good compressibility is noted throughout. Flow is demonstrated and flow augmentation was easily elicited with calf compression. SUMMARY: There is no evidence of DVT. LEFT LEG ULTRASOUND: The study was carried out according to the usual protocol. The superficial, femoral, popliteal and proximal trifurcation in the superior portion of the leg are well seen. Good compressibility is noted throughout. Flow is demonstrated and flow augmentation was easily elicited with calf compression. SUMMARY: There is no evidence of DVT.
== END 2018-11-06 12:45 ==
PROVIDERS: PCP Internal Medicine; Visit Provider Internal Medicine Hematology & Oncology
DX: R60.0 Localized edema (principal); Z92.21 Personal history of antineoplastic chemotherapy
CPT/HCPCS: 93970

== ENCOUNTER 2018-11-29 03:10 | Outpatient (RCR) | payer BC, SELFPAY ==
[2018-11-12] MEDS: Normal Saline Flush 10 ML SYR IVP (10:00)
[2018-11-12 10:29] LABS: Abs Immature Grans 0.02 k/cumm (0.0-0.09); Absolute Basophil Count 0.02 k/cumm (0.0-0.2); Absolute Eosinophil Count 0.23 k/cumm (0.0-0.7); Absolute Lymphocyte Count 0.84 k/cumm (1.2-3.4); Absolute Monocyte Count 0.33 k/cumm (0.11-0.7); Basophils % 0.6; Eosinophils % 7.3; HGB 13.5 g/dL (13.5-17.5); Immature Grans % 0.6; Lymphocytes % 26.8; Mean Corp. HGB Concentration 32.9 g/dL (32.0-36.0); Mean Corpuscular Hemoglobin 33.2 pg (27.0-33.0); Mean Corpuscular Volume 100.7 fL (80-95); Mean Platelet Volume 9.8 fL (8.0-11.0); Monocytes % 10.5; Neutrophils % 54.2; Platelet Count 170 x1000/uL (130-400); RBC 4.07 m/cumm (4.50-6.00); RBC Distribution Width 13.5 % (11.8-14.1); White Blood Cell Count 3.13 k/cumm (4.4-10.8)
[2018-11-12 11:30] LABS: ALT 47 U/L (12-78); AST 26 U/L (15-37); Albumin 3.4 g/dL (3.4-5.0); Alkaline Phosphatase 112 U/L (46-116); Anion Gap 9.4 mmol/L (3-11); BUN 9 mg/dL (7-18); Bilirubin, Total 0.5 mg/dL (0.2-1.0); CO2 27.6 mmol/L (21.0-32.0); CREATININE 0.89 mg/dL (0.70-1.30); Calcium 8.8 mg/dL (8.5-10.1); Chloride 104 mmol/L (98-107); Glucose 122 mg/dL (70-100); Potassium 3.7 mmol/L (3.5-5.1); Sodium 141 mmol/L (136-145); Total Protein 6.9 g/dL (6.4-8.2)
[2018-11-13 09:59] LABS: CEA 2.9 ng/ml
[2018-11-29] MEDS: Heparin 500 UNITS/5 ML SYRINGE IV (12:25)
[2018-11-29] MEDS: Normal Saline Flush 10 ML SYR IVP (12:25)
[2018-11-29 12:40] LABS: Abs Immature Grans 0.05 k/cumm (0.0-0.09); Absolute Basophil Count 0.04 k/cumm (0.0-0.2); Absolute Eosinophil Count 0.12 k/cumm (0.0-0.7); Absolute Lymphocyte Count 1.16 k/cumm (1.2-3.4); Absolute Monocyte Count 0.42 k/cumm (0.11-0.7); Absolute Neutrophil Count 3.06 k/cumm (1.2-6.7); Basophils % 0.8; Eosinophils % 2.5; HCT 40.3 % (40.0-50.0); HGB 13.2 g/dL (13.5-17.5); Lymphocytes % 23.9; Mean Corp. HGB Concentration 32.8 g/dL (32.0-36.0); Mean Corpuscular Volume 100.8 fL (80-95); Mean Platelet Volume 9.7 fL (8.0-11.0); Monocytes % 8.7; Neutrophils % 63.1; Platelet Count 185 x1000/uL (130-400); RBC Distribution Width 13.7 % (11.8-14.1); White Blood Cell Count 4.85 k/cumm (4.4-10.8)
[2018-11-29 12:50] LABS: ALT 77 U/L (16-63); AST 36 U/L (15-37); Albumin 3.5 g/dL (3.4-5.0); Alkaline Phosphatase 109 U/L (46-116); Anion Gap 8.7 mmol/L (3-11); BUN 11 mg/dL (7-18); Bilirubin, Total 0.5 mg/dL (0.2-1.0); CO2 28.3 mmol/L (21.0-32.0); Calcium 8.8 mg/dL (8.5-10.1); Chloride 104 mmol/L (98-107); Glucose 96 mg/dL (70-100); Potassium 4.1 mmol/L (3.5-5.1); Sodium 141 mmol/L (136-145); Total Protein 7.1 g/dL (6.4-8.2)
[2018-12-02 10:49] LABS: CEA 2.8 ng/ml
== END 2018-12-07 23:59 | disposition home or self-care (01) ==
LOC: INF 03:10
PROVIDERS: PCP Internal Medicine; Visit Provider Internal Medicine Hematology & Oncology
DX: C20 Malignant neoplasm of rectum (principal); C78.7 Secondary malignant neoplasm of liver and intrahepatic bile duct; C79.51 Secondary malignant neoplasm of bone; Z45.2 Encounter for adjustment and management of vascular access device
CPT/HCPCS: 36591; 80053; 82378; 85025

== ENCOUNTER 2018-12-24 07:05 | Outpatient (RCR) | payer BC, SELFPAY ==
[2018-12-24] MEDS: Normal Saline Flush 10 ML SYR 30 ML IVP (07:30)
[2018-12-24 07:32] LABS: Abs Immature Grans 0.03 k/cumm (0.0-0.09); Absolute Basophil Count 0.05 k/cumm (0.0-0.2); Absolute Eosinophil Count 0.46 k/cumm (0.0-0.7); Absolute Lymphocyte Count 0.82 k/cumm (1.2-3.4); Absolute Monocyte Count 0.45 k/cumm (0.11-0.7); Absolute Neutrophil Count 3.69 k/cumm (1.2-6.7); Basophils % 0.9; Eosinophils % 8.4; HCT 42.4 % (40.0-50.0); HGB 13.6 g/dL (13.5-17.5); Immature Grans % 0.5; Lymphocytes % 14.9; Mean Corp. HGB Concentration 32.1 g/dL (32.0-36.0); Mean Corpuscular Hemoglobin 32.3 pg (27.0-33.0); Mean Corpuscular Volume 100.7 fL (80-95); Mean Platelet Volume 9.7 fL (8.0-11.0); Monocytes % 8.2; Neutrophils % 67.1; Platelet Count 181 x1000/uL (130-400); RBC 4.21 m/cumm (4.50-6.00); RBC Distribution Width 13.9 % (11.8-14.1)
[2018-12-24 07:42] LABS: ALT 64 U/L (16-63); AST 35 U/L (15-37); Albumin 3.5 g/dL (3.4-5.0); Alkaline Phosphatase 120 U/L (46-116); Anion Gap 8.9 mmol/L (3-11); BUN 8 mg/dL (7-18); Bilirubin, Total 0.5 mg/dL (0.2-1.0); CO2 28.1 mmol/L (21.0-32.0); CREATININE 0.98 mg/dL (0.70-1.30); Calcium 8.9 mg/dL (8.5-10.1); Chloride 105 mmol/L (98-107); Glucose 133 mg/dL (70-100); Potassium 3.7 mmol/L (3.5-5.1); Sodium 142 mmol/L (136-145); Total Protein 7.3 g/dL (6.4-8.2)
[2018-12-25 09:40] LABS: CEA 2.7 ng/ml
== END 2019-01-06 23:59 | disposition home or self-care (01) ==
LOC: INF 07:05
PROVIDERS: PCP Internal Medicine; Visit Provider Nurse Practitioner Adult Health
DX: C20 Malignant neoplasm of rectum (principal); C78.7 Secondary malignant neoplasm of liver and intrahepatic bile duct; Z45.2 Encounter for adjustment and management of vascular access device
CPT/HCPCS: 36591; 80053; 82378; 85025

== ENCOUNTER 2019-01-08 01:10 | Outpatient (CLI) | payer BC, SELFPAY ==
--- NOTE | 2019-01-08 07:45 | DI.CT_ITS ---
EXAM: CT CHEST/ABD/PEL W CLINICAL HISTORY: RECTAL CA METASTASIZED TO BONE,C20,C79.51,? RESPONSE TO THERAPY. TECHNIQUE: Imaging Protocol: Axial computed tomography images with coronal and sagittal reformatted images were created and reviewed CONTRAST MATERIAL: Intravenous: Omnipaque 350 Contrast volume:100 mL contrast route:IV - Oral: Yes COMPARISON: CT CHEST/ABD/PEL W from 10/30/2018 FINDINGS: CHEST: Tracheobronchial tree: Patent where visualized. Mediastinum and Christine: Using similar measuring techniques, the subcarinal mass currently measures 4.5 x 3.3 cm. This compares with 4.3 x 3 cm. Pulmonary parenchyma: No focal consolidation. Stable number and size of pulmonary nodules. No archite ctural distortion. Pleura: No effusion or pneumothorax. Lymph nodes: See above. Aorta: Thoracic portion non-dilated. Heart: Normal size. No pericardial effusion. Coronary artery calcifications. ABDOMEN: Liver: Normal density. The hypodense lesion adjacent to the gallbladder within the liver is less well visualized on the current examination. No new hepatic masses are present. The portal, superior mesen teric, and splenic veins are patent. Gallbladder and biliary tract: No radiodense calculus or dilation. Pancreas: Normal density, no abnormal calcifications or inflammatory process. Spleen: Normal. Kidneys: Normal size, contour and axis. No radiodense stones or obstructive uropathy. Tiny hypodensit ies are seen in the kidneys bilaterally. They are too small for further characterization. These likel y reflect cysts. Adrenal glands: No masses seen. Aorta: Abdominal portion non-dilated. Lymph nodes: Within normal limits. PELVIS: Bladder: Symmetric distention, no gross wall thickening. Bowel: No obstruction or bowel wall thickening. Peritoneal cavity: There is no ascites. There has been no significant change in the left pelvic sidew all mass. Bones: Unchanged. Reproductive organs: Within normal limits. IMPRESSION: Stable appearance of the chest, abdomen and pelvis. DATA REPOSITORY: All CT scans at this facility are submitted to the National Radiology Data Registry (NRDR) Dose Index Registry (DIR) with the [employer] ([employer]). RADIATION OPTIMIZATION: All CT scans at this facility use at least one of these dose optimization te chniques: automated exposure control; mA and/or kV adjustment per patient size (includes targeted exa ms where dose is matched to clinical indication); or iterative reconstruction.
[2019-01-08] MEDS: Omnipaque 350 MG/ML 100 ML BTL IJ (09:17)
[2019-01-08] MEDS: Normal Saline Flush 10 ML SYR IVP (09:18)
[2019-01-08] MEDS: Breeza Beverage 473 ML BTL PO ×2 (09:36→09:37)
[2019-01-08] MEDS: Omnipaque 350 MG/ML 50 ML BTL PO (09:36)
== END 2019-01-08 01:30 ==
PROVIDERS: PCP Internal Medicine; Visit Provider Registered Nurse Oncology
DX: C20 Malignant neoplasm of rectum (principal); C79.51 Secondary malignant neoplasm of bone; Z92.21 Personal history of antineoplastic chemotherapy; R91.8 Other nonspecific abnormal finding of lung field
CPT/HCPCS: 74177; 71260; J3490; Q9967

== ENCOUNTER 2019-01-08 01:38 | Outpatient (RCR) | payer BC, SELFPAY ==
[2019-01-08] MEDS: Heparin 500 UNITS/5 ML SYRINGE IV (07:44)
[2019-01-08] MEDS: Normal Saline Flush 10 ML SYR IVP (07:44)
[2019-01-08 07:59] LABS: Abs Immature Grans 0.06 k/cumm (0.0-0.09); Absolute Basophil Count 0.02 k/cumm (0.0-0.2); Absolute Eosinophil Count 0.26 k/cumm (0.0-0.7); Absolute Lymphocyte Count 1.06 k/cumm (1.2-3.4); Absolute Monocyte Count 0.38 k/cumm (0.11-0.7); Absolute Neutrophil Count 1.79 k/cumm (1.2-6.7); Basophils % 0.6; Eosinophils % 7.3; HCT 40.9 % (40.0-50.0); Immature Grans % 1.7; Lymphocytes % 29.7; Mean Corp. HGB Concentration 31.8 g/dL (32.0-36.0); Mean Corpuscular Hemoglobin 31.7 pg (27.0-33.0); Mean Corpuscular Volume 99.8 fL (80-95); Mean Platelet Volume 9.3 fL (8.0-11.0); Monocytes % 10.6; Neutrophils % 50.1; Platelet Count 171 x1000/uL (130-400); RBC Distribution Width 13.9 % (11.8-14.1); White Blood Cell Count 3.57 k/cumm (4.4-10.8)
[2019-01-08 08:02] LABS: ALT 63 U/L (16-63); AST 39 U/L (15-37); Albumin 3.3 g/dL (3.4-5.0); Alkaline Phosphatase 119 U/L (46-116); Anion Gap 6.9 mmol/L (3-11); BUN 8 mg/dL (7-18); Bilirubin, Total 0.5 mg/dL (0.2-1.0); CO2 28.1 mmol/L (21.0-32.0); CREATININE 0.96 mg/dL (0.70-1.30); Calcium 8.7 mg/dL (8.5-10.1); Chloride 105 mmol/L (98-107); Glucose 99 mg/dL (70-100); Potassium 4.1 mmol/L (3.5-5.1); Sodium 140 mmol/L (136-145); Total Protein 6.8 g/dL (6.4-8.2)
[2019-01-09 09:23] LABS: CEA 3.5 ng/ml
== END 2019-02-06 23:59 | disposition home or self-care (01) ==
LOC: INF 01:38
PROVIDERS: PCP Internal Medicine; Visit Provider Nurse Practitioner Adult Health
DX: C20 Malignant neoplasm of rectum (principal); C78.7 Secondary malignant neoplasm of liver and intrahepatic bile duct; Z45.2 Encounter for adjustment and management of vascular access device
CPT/HCPCS: 36591; 80053; 82378; 85025

== ENCOUNTER 2019-01-23 00:19 | Outpatient (CLI) | payer BC, SELFPAY ==
[2019-01-23] MEDS: Normal Saline Flush 10 ML SYR IVP (14:21)
[2019-01-23] MEDS: Gadoterate meglumine 20 ML VIAL IVP (14:22)
--- NOTE | 2019-01-23 14:53 | DI.MRI_ITS ---
EXAM: MR LUMBAR SPINE WO/W CLINICAL HISTORY: H/O L4-5 DISC PROSTRUSION WITH LT LUMBAR. TECHNIQUE: Multiplanar multisequence MRI was performed. COMPARISON: MRI - LUMBAR SPINE W/WO CONT from 08/13/2017 FINDINGS: The overall marrow signal is normal. There are hemangiomas in the T11 and L1 vertebral bodies which appear unchanged. No abnormal enhancing lesions are identified. The conus medullaris appears intact . The T12-L1 through L2-3 disc spaces are intact. There is mild disc bulging at L3-4. Mild disc bulge is also seen at L4-5. There are facet degenerative changes. The composite the combi nation degenerative changes closed mild neural foraminal narrowing at bilaterally. There is no signi ficant central canal stenosis. At L5-S1, there is slight disc bulging. There are mild facet degenerative changes with no significan t neural foraminal narrowing or central canal stenosis. IMPRESSION: Stable mild degenerative disc changes and facet degenerative changes which cause mild neural foramina l narrowing at L4-5. No evidence bony metastases.
== END 2019-01-23 00:39 ==
PROVIDERS: PCP Internal Medicine; Visit Provider Nurse Practitioner Family
DX: M51.26 Other intervertebral disc displacement, lumbar region (principal); M51.36 Other intervertebral disc degeneration, lumbar region
CPT/HCPCS: 72158

== ENCOUNTER 2019-02-03 02:02 | Outpatient (RCR) | payer BC, SELFPAY ==
[2019-01-14] MEDS: Normal Saline Flush 10 ML SYR 30 ML IVP (07:30)
[2019-01-14 07:51] LABS: Abs Immature Grans 0.04 k/cumm (0.0-0.09); Absolute Basophil Count 0.03 k/cumm (0.0-0.2); Absolute Lymphocyte Count 1.09 k/cumm (1.2-3.4); Absolute Monocyte Count 0.42 k/cumm (0.11-0.7); Absolute Neutrophil Count 1.67 k/cumm (1.2-6.7); Basophils % 0.8; Eosinophils % 8.5; HCT 41.2 % (40.0-50.0); HGB 13.2 g/dL (13.5-17.5); Immature Grans % 1.1; Lymphocytes % 30.7; Mean Corpuscular Hemoglobin 32.1 pg (27.0-33.0); Mean Corpuscular Volume 100.2 fL (80-95); Mean Platelet Volume 9.7 fL (8.0-11.0); Monocytes % 11.8; Neutrophils % 47.1; Platelet Count 185 x1000/uL (130-400); RBC 4.11 m/cumm (4.50-6.00); RBC Distribution Width 13.7 % (11.8-14.1); White Blood Cell Count 3.55 k/cumm (4.4-10.8)
[2019-01-14 08:04] LABS: ALT 72 U/L (16-63); AST 46 U/L (15-37); Albumin 3.2 g/dL (3.4-5.0); Alkaline Phosphatase 120 U/L (46-116); Anion Gap 9.1 mmol/L (3-11); BUN 9 mg/dL (7-18); Bilirubin, Total 0.5 mg/dL (0.2-1.0); CO2 27.9 mmol/L (21.0-32.0); Calcium 8.5 mg/dL (8.5-10.1); Chloride 105 mmol/L (98-107); Glucose 144 mg/dL (70-100); Potassium 3.9 mmol/L (3.5-5.1); Sodium 142 mmol/L (136-145); Total Protein 6.9 g/dL (6.4-8.2)
[2019-01-15 10:03] LABS: CEA 3.3 ng/ml
[2019-01-23] MEDS: Normal Saline Flush 10 ML SYR IVP (13:36)
[2019-01-23] MEDS: Heparin 500 UNITS/5 ML SYRINGE IV (13:37)
[2019-02-03] MEDS: Normal Saline Flush 10 ML SYR 30 ML IVP (08:51)
[2019-02-03 09:03] LABS: Abs Immature Grans 0.03 k/cumm (0.0-0.09); Absolute Basophil Count 0.04 k/cumm (0.0-0.2); Absolute Eosinophil Count 0.25 k/cumm (0.0-0.7); Absolute Lymphocyte Count 1.01 k/cumm (1.2-3.4); Absolute Monocyte Count 0.44 k/cumm (0.11-0.7); Absolute Neutrophil Count 2.99 k/cumm (1.2-6.7); Basophils % 0.8; Eosinophils % 5.3; HCT 41.4 % (40.0-50.0); HGB 13.1 g/dL (13.5-17.5); Immature Grans % 0.6; Lymphocytes % 21.2; Mean Corp. HGB Concentration 31.6 g/dL (32.0-36.0); Mean Corpuscular Hemoglobin 31.6 pg (27.0-33.0); Mean Corpuscular Volume 99.8 fL (80-95); Mean Platelet Volume 9.6 fL (8.0-11.0); Monocytes % 9.2; Neutrophils % 62.9; Platelet Count 189 x1000/uL (130-400); RBC 4.15 m/cumm (4.50-6.00); RBC Distribution Width 13.8 % (11.8-14.1); White Blood Cell Count 4.76 k/cumm (4.4-10.8)
[2019-02-03 09:14] LABS: ALT 43 U/L (16-63); AST 25 U/L (15-37); Albumin 3.4 g/dL (3.4-5.0); Alkaline Phosphatase 99 U/L (46-116); BUN 10 mg/dL (7-18); Bilirubin, Total 0.5 mg/dL (0.2-1.0); CREATININE 0.99 mg/dL (0.70-1.30); Calcium 9.2 mg/dL (8.5-10.1); Chloride 106 mmol/L (98-107); Glucose 115 mg/dL (70-100); Potassium 3.9 mmol/L (3.5-5.1); Sodium 142 mmol/L (136-145); Total Protein 6.9 g/dL (6.4-8.2)
[2019-02-04 11:16] LABS: CEA 3.8 ng/ml
== END 2019-02-06 23:59 | disposition home or self-care (01) ==
LOC: INF 02:02
PROVIDERS: Internal Medicine Hematology & Oncology; PCP Internal Medicine; Visit Provider Nurse Practitioner Adult Health
DX: C20 Malignant neoplasm of rectum (principal); C78.7 Secondary malignant neoplasm of liver and intrahepatic bile duct; Z45.2 Encounter for adjustment and management of vascular access device
CPT/HCPCS: 36591; 80053; 96523; 82378; 85025

== ENCOUNTER 2019-02-28 02:07 | Outpatient (RCR) | payer BC, SELFPAY ==
[2019-02-17 08:04] LABS: Abs Immature Grans 0.05 k/cumm (0.0-0.09); Absolute Basophil Count 0.03 k/cumm (0.0-0.2); Absolute Eosinophil Count 0.22 k/cumm (0.0-0.7); Absolute Lymphocyte Count 0.99 k/cumm (1.2-3.4); Absolute Monocyte Count 0.32 k/cumm (0.11-0.7); Absolute Neutrophil Count 2.83 k/cumm (1.2-6.7); Basophils % 0.7; HCT 41.5 % (40.0-50.0); HGB 13.4 g/dL (13.5-17.5); Immature Grans % 1.1; Lymphocytes % 22.3; Mean Corp. HGB Concentration 32.3 g/dL (32.0-36.0); Mean Corpuscular Hemoglobin 32.4 pg (27.0-33.0); Mean Corpuscular Volume 100.2 fL (80-95); Mean Platelet Volume 9.5 fL (8.0-11.0); Monocytes % 7.2; Neutrophils % 63.7; Platelet Count 194 x1000/uL (130-400); RBC 4.14 m/cumm (4.50-6.00); RBC Distribution Width 14.2 % (11.8-14.1); White Blood Cell Count 4.44 k/cumm (4.4-10.8)
[2019-02-17 08:12] LABS: ALT 49 U/L (16-63); AST 30 U/L (15-37); Albumin 3.4 g/dL (3.4-5.0); Alkaline Phosphatase 111 U/L (46-116); Anion Gap 7.6 mmol/L (3-11); BUN 8 mg/dL (7-18); Bilirubin, Total 0.2 mg/dL (0.2-1.0); CO2 28.4 mmol/L (21.0-32.0); CREATININE 0.94 mg/dL (0.70-1.30); Calcium 8.9 mg/dL (8.5-10.1); Chloride 107 mmol/L (98-107); Glucose 116 mg/dL (70-100); Potassium 3.8 mmol/L (3.5-5.1); Sodium 143 mmol/L (136-145); Total Protein 6.8 g/dL (6.4-8.2)
[2019-02-17] MEDS: Normal Saline Flush 10 ML SYR IVP (08:37)
[2019-02-18 12:06] LABS: CEA 2.9 ng/mL (See Note)
[2019-02-28] MEDS: Normal Saline Flush 10 ML SYR IVP (13:55)
[2019-02-28] MEDS: Heparin 500 UNITS/5 ML SYRINGE IV (13:55)
[2019-02-28 14:18] LABS: Absolute Basophil Count 0.03 k/cumm (0.0-0.2); Absolute Eosinophil Count 0.14 k/cumm (0.0-0.7); Absolute Lymphocyte Count 1.06 k/cumm (1.2-3.4); Absolute Monocyte Count 0.62 k/cumm (0.11-0.7); Absolute Neutrophil Count 3.46 k/cumm (1.2-6.7); Basophils % 0.6; Eosinophils % 2.6; HCT 40.3 % (40.0-50.0); HGB 12.7 g/dL (13.5-17.5); Immature Grans % 1.8; Lymphocytes % 19.6; Mean Corp. HGB Concentration 31.5 g/dL (32.0-36.0); Mean Corpuscular Hemoglobin 32.1 pg (27.0-33.0); Mean Corpuscular Volume 101.8 fL (80-95); Mean Platelet Volume 9.4 fL (8.0-11.0); Monocytes % 11.5; Neutrophils % 63.9; Platelet Count 168 x1000/uL (130-400); RBC 3.96 m/cumm (4.50-6.00); RBC Distribution Width 14.7 % (11.8-14.1); White Blood Cell Count 5.41 k/cumm (4.4-10.8)
[2019-02-28 14:37] LABS: ALT 77 U/L (16-63); AST 43 U/L (15-37); Albumin 3.4 g/dL (3.4-5.0); Alkaline Phosphatase 120 U/L (46-116); Anion Gap 8.3 mmol/L (3-11); BUN 13 mg/dL (7-18); Bilirubin, Total 0.2 mg/dL (0.2-1.0); CO2 29.7 mmol/L (21.0-32.0); Calcium 8.8 mg/dL (8.5-10.1); Chloride 105 mmol/L (98-107); Glucose 104 mg/dL (74-106); Sodium 143 mmol/L (136-145); Total Protein 6.8 g/dL (6.4-8.2)
== END 2019-03-08 23:59 | disposition home or self-care (01) ==
LOC: INF 02:07
PROVIDERS: PCP Internal Medicine; Visit Provider Internal Medicine Hematology & Oncology
DX: C20 Malignant neoplasm of rectum (principal); C78.7 Secondary malignant neoplasm of liver and intrahepatic bile duct; Z45.2 Encounter for adjustment and management of vascular access device
CPT/HCPCS: 36591; 80053; 82378; 85025

== ENCOUNTER 2019-04-21 10:04 | Emergency (ER) | payer BC, SELFPAY ==
[2019-04-21 10:26] VITALS: BP 173/89; PULSE 79; TEMP 36.8; O2SAT 94
[2019-04-21 10:29] VITALS: RESP 18
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
[2019-04-21 13:21] LABS: Abs Immature Grans 0.03 k/cumm (0.0-0.09); Absolute Basophil Count 0.03 k/cumm (0.0-0.2); Absolute Eosinophil Count 0.25 k/cumm (0.0-0.7); Absolute Lymphocyte Count 1.25 k/cumm (1.2-3.4); Absolute Monocyte Count 0.85 k/cumm (0.11-0.7); Absolute Neutrophil Count 5.15 k/cumm (1.2-6.7); Basophils % 0.4; Eosinophils % 3.3; HCT 41.6 % (40.0-50.0); HGB 13.4 g/dL (13.5-17.5); Immature Grans % 0.4 %; Lymphocytes % 16.5; Mean Corp. HGB Concentration 32.2 g/dL (32.0-36.0); Mean Corpuscular Hemoglobin 31.7 pg (27.0-33.0); Mean Corpuscular Volume 98.3 fL (80-95); Mean Platelet Volume 9.5 fL (8.0-11.0); Monocytes % 11.2; Neutrophils % 68.2; Platelet Count 220 x1000/uL (130-400); RBC 4.23 m/cumm (4.50-6.00); RBC Distribution Width 12.7 % (11.8-14.1); White Blood Cell Count 7.56 k/cumm (4.4-10.8)
[2019-04-21] MEDS: oxyCODONE 10 MG TAB PO (13:22)
[2019-04-21 13:32] LABS: ALT 40 U/L (16-63); AST 30 U/L (15-37); Albumin 3.5 g/dL (3.4-5.0); Alkaline Phosphatase 104 U/L (46-116); Anion Gap 8.9 mmol/L (3-11); BUN 8 mg/dL (7-18); Bilirubin, Total 0.7 mg/dL (0.2-1.0); CO2 29.1 mmol/L (21.0-32.0); CREATININE 0.63 mg/dL (0.70-1.30); Calcium 9.3 mg/dL (8.5-10.1); Chloride 102 mmol/L (98-107); Glucose 103 mg/dL (74-106); Potassium 3.9 mmol/L (3.5-5.1); Sodium 140 mmol/L (136-145); Total Protein 7.2 g/dL (6.4-8.2)
[2019-04-21 13:56] VITALS: BP 140/82; PULSE 66; RESP 17; O2SAT 95
[2019-04-21] MEDS: HYDROmorphone 2 MG/ML VIAL 1 MG IVP ×3 (14:10→17:24)
--- NOTE | 2019-04-21 14:25 | DI.US_ITS ---
EXAM: US LOWER EXTREMITY VENOUS LT CLINICAL HISTORY: LEG PAIN. TECHNIQUE: Left lower extremity venous ultrasound performed using grayscale, color-flow, and spectra l Doppler analysis. COMPARISON: US extremity venous BI from 11/06/2018 FINDINGS: The left common femoral, femoral and popliteal veins demonstrate normal compressibility, augmentation , and color Doppler. The posterior tibial veins are patent. Saphenofemoral junction is unremarkable. There is no evidence of a popliteal cyst. IMPRESSION: No DVT.
--- NOTE | 2019-04-21 14:26 | DI.CT_ITS ---
EXAM: CT CHEST/ABD/PEL W CLINICAL HISTORY: WORSENING PELVIC PAIN, KNOWN RECTAL CANCER. TECHNIQUE: Imaging Protocol: Axial computed tomography images with coronal and sagittal reformatted images were created and reviewed CONTRAST MATERIAL: Intravenous: Omnipaque 350 Contrast volume:100 mL Oral: No COMPARISON: CT CHEST/ABD/PEL W from 01/08/2019 FINDINGS: CHEST: Tracheobronchial tree: Patent where visualized. Mediastinum and Christine: There has been no change in the subcarinal mass compared to the prior examinati on. Pulmonary parenchyma: Innumerable pulmonary nodules. The findings are consistent with metastatic dis ease. No new infiltrates are seen. No architectural distortion. Pleura: No effusion or pneumothorax. Lymph nodes: Stable subcarinal mass. Aorta: Thoracic portion non-dilated. Heart: Nondilated. No pericardial effusion. Coronary artery calcifications. Bones: Stable. Tubes, catheters: The tip of the indwelling central venous catheter is seen in the superior vena cava . ABDOMEN: Liver: Normal density. No new hepatic mass. Gallbladder and biliary tract: No radiodense calculus or dilation. Pancreas: Normal density, no abnormal calcifications or inflammatory process. Spleen: Normal. Kidneys: Normal size, contour and axis. Stable left nephrolithiasis. Stable cysts. Adrenal glands: No masses seen. Aorta: Atherosclerosis. No aneurysm. Lymph nodes: Within normal limits. PELVIS: Bladder: Symmetric distention, no gross wall thickening. Bowel: No obstruction or bowel wall thickening. Normal appendix. Peritoneal cavity: No ascites, collection or mesenteric inflammatory response. Stable left pelvic alayna ewall mass. Bones: Stable. Reproductive organs: Stable. IMPRESSION: 1. Stable appearance of the pelvis and abdomen. 2. Stable chest. 3. The findings were discussed with the Emergency Department on the date of the examination. DATA REPOSITORY: All CT scans at this facility are submitted to the National Radiology Data Registry (NRDR) Dose Index Registry (DIR) with the [employer] (ACR). RADIATION OPTIMIZATION: All CT scans at this facility use at least one of these dose optimization te chniques: automated exposure control; mA and/or kV adjustment per patient size (includes targeted exa ms where dose is matched to clinical indication); or iterative reconstruction.
[2019-04-21] MEDS: Omnipaque 350 MG/ML 100 ML BTL IJ (14:30)
[2019-04-21 15:08] VITALS: BP 132/80; PULSE 67; RESP 18; O2SAT 94
[2019-04-21] MEDS: HYDROmorphone 2 MG/ML VIAL (16:33)
[2019-04-21 17:40] VITALS: BP 154/79; PULSE 80; RESP 18; TEMP 36.8; O2SAT 98
== END 2019-04-21 17:36 | disposition home or self-care (01) ==
PROVIDERS: Emergency Provider Student in an Organized Health Care Education/Training Program; PCP Internal Medicine
DX: M54.5 Low back pain (principal); M79.652 Pain in left thigh; G89.29 Other chronic pain; R20.0 Anesthesia of skin; C20 Malignant neoplasm of rectum; Z79.899 Other long term (current) drug therapy; I10 Essential (primary) hypertension
CPT/HCPCS: 36591; 74177; 80053; 96374; 96376; 99285; 71260; 85025; 93971; 99284; J3490

== ENCOUNTER 2019-05-02 14:00 | Outpatient (RCR) | payer BC, SELFPAY ==
[2019-04-18] MEDS: Heparin 500 UNITS/5 ML SYRINGE IV (13:53)
[2019-04-18] MEDS: Normal Saline Flush 10 ML SYR IVP (13:53)
[2019-04-18 14:25] LABS: Abs Immature Grans 0.02 k/cumm (0.0-0.09); Absolute Basophil Count 0.02 k/cumm (0.0-0.2); Absolute Lymphocyte Count 1.39 k/cumm (1.2-3.4); Absolute Monocyte Count 0.54 k/cumm (0.11-0.7); Absolute Neutrophil Count 4.12 k/cumm (1.2-6.7); Basophils % 0.3; Eosinophils % 4.7; HCT 43.2 % (40.0-50.0); HGB 13.9 g/dL (13.5-17.5); Immature Grans % 0.3 %; Lymphocytes % 21.8; Mean Corp. HGB Concentration 32.2 g/dL (32.0-36.0); Mean Corpuscular Hemoglobin 31.9 pg (27.0-33.0); Mean Corpuscular Volume 99.1 fL (80-95); Mean Platelet Volume 9.9 fL (8.0-11.0); Monocytes % 8.5; Neutrophils % 64.4; Platelet Count 228 x1000/uL (130-400); RBC 4.36 m/cumm (4.50-6.00); RBC Distribution Width 13.1 % (11.8-14.1); White Blood Cell Count 6.39 k/cumm (4.4-10.8)
[2019-04-18 14:38] LABS: ALT 41 U/L (16-63); AST 30 U/L (15-37); Albumin 3.6 g/dL (3.4-5.0); Alkaline Phosphatase 99 U/L (46-116); Anion Gap 9.1 mmol/L (3-11); BUN 12 mg/dL (7-18); Bilirubin, Total 0.5 mg/dL (0.2-1.0); CO2 29.9 mmol/L (21.0-32.0); CREATININE 0.86 mg/dL (0.70-1.30); Calcium 8.9 mg/dL (8.5-10.1); Chloride 107 mmol/L (98-107); Glucose 114 mg/dL (74-106); Sodium 146 mmol/L (136-145); Total Protein 7.3 g/dL (6.4-8.2)
[2019-04-21 10:18] LABS: CEA 3.6 ng/mL (See Note)
[2019-05-02] MEDS: Normal Saline Flush 10 ML SYR IVP (14:22)
[2019-05-02] MEDS: Heparin 500 UNITS/5 ML SYRINGE IV (14:22)
[2019-05-02 14:43] LABS: Abs Immature Grans 0.02 k/cumm (0.0-0.09); Absolute Basophil Count 0.01 k/cumm (0.0-0.2); Absolute Lymphocyte Count 1.17 k/cumm (1.2-3.4); Absolute Monocyte Count 0.39 k/cumm (0.11-0.7); Basophils % 0.2; Eosinophils % 4.3; HCT 38.9 % (40.0-50.0); HGB 12.5 g/dL (13.5-17.5); Immature Grans % 0.4 %; Lymphocytes % 24.9; Mean Corp. HGB Concentration 32.1 g/dL (32.0-36.0); Mean Corpuscular Hemoglobin 31.6 pg (27.0-33.0); Mean Corpuscular Volume 98.2 fL (80-95); Mean Platelet Volume 9.7 fL (8.0-11.0); Monocytes % 8.3; Neutrophils % 61.9; Platelet Count 174 x1000/uL (130-400); RBC 3.96 m/cumm (4.50-6.00); RBC Distribution Width 12.9 % (11.8-14.1); White Blood Cell Count 4.69 k/cumm (4.4-10.8)
[2019-05-02 14:53] LABS: ALT 40 U/L (16-63); AST 24 U/L (15-37); Albumin 3.6 g/dL (3.4-5.0); Alkaline Phosphatase 108 U/L (46-116); Anion Gap 6.6 mmol/L (3-11); BUN 10 mg/dL (7-18); Bilirubin, Total 0.4 mg/dL (0.2-1.0); CO2 29.4 mmol/L (21.0-32.0); CREATININE 0.99 mg/dL (0.70-1.30); Calcium 8.3 mg/dL (8.5-10.1); Chloride 102 mmol/L (98-107); Glucose 134 mg/dL (74-106); Potassium 3.8 mmol/L (3.5-5.1); Sodium 138 mmol/L (136-145); Total Protein 6.8 g/dL (6.4-8.2)
[2019-05-05 13:18] LABS: CEA 3.2 ng/mL (See Note)
== END 2019-05-09 23:59 | disposition home or self-care (01) ==
LOC: INF 14:00
PROVIDERS: PCP Internal Medicine; Visit Provider Nurse Practitioner Adult Health
DX: C20 Malignant neoplasm of rectum (principal); C78.7 Secondary malignant neoplasm of liver and intrahepatic bile duct; Z45.2 Encounter for adjustment and management of vascular access device
CPT/HCPCS: 36591; 80053; 82378; 85025

== ENCOUNTER 2019-05-15 01:14 | Outpatient (CLI) | payer BC, SELFPAY ==
--- NOTE | 2019-05-15 14:37 | DI.MRI_ITS ---
EXAM: MR LUMBAR SPINE WO/W CLINICAL HISTORY: RECTAL CA METS TO LUNG, C20, C78.00, BACK PAIN WI RADICULOPATHY, M54.10. TECHNIQUE: Multiplanar multisequence MRI was performed. MR examination of the lumbosacral spine was performed according to the usual protocol with additional pre and post contrast T1 fat-sat axial and sagittal imaging. COMPARISON: MR LUMBAR SPINE WO/W from 01/23/2019 CT CHEST/ABD/PEL W from 04/21/2019 FINDINGS: The conus medullaris appears intact. Spinal canal is unremarkable. No disc herniation. No neural f oraminal narrowing. There are high signal lesions at T12 and L2, which have high signal on both T1 and T2 weighted images consistent with vertebral hemangioma. There is also a small high signal lesion in the left sacral a la at the S2 level, which shows high signal on T2 but is isointense to marrow on T1 weighted imaging. This shows some enhancement on post contrast T1 fat-sat imaging. Possibility of a small metastatic lesion is raised, this measures about 12 x 8 millimeters in diameter on sagittal T2 weighted imaging and appears smaller on contrast-enhanced imaging. No other focal bony lesion identified. IMPRESSION: Suspicious enhancing lesion in left sacral ala at the S2 level as described above; in a patient with known metastatic rectal carcinoma, the findings are suspicious for metastasis. No other focal abnormality seen.
[2019-05-15] MEDS: Normal Saline Flush 10 ML SYR IVP (15:01)
[2019-05-15] MEDS: Gadoterate meglumine 20 ML VIAL IVP (15:04)
== END 2019-05-15 01:34 ==
PROVIDERS: PCP Internal Medicine; Visit Provider Internal Medicine Hematology & Oncology
DX: C20 Malignant neoplasm of rectum (principal); C78.00 Secondary malignant neoplasm of unspecified lung; M54.16 Radiculopathy, lumbar region; M89.8X8 Other specified disorders of bone, other site
CPT/HCPCS: 72158

== ENCOUNTER 2019-05-15 14:00 | Outpatient (RCR) | payer BC, SELFPAY ==
[2019-05-12] MEDS: Normal Saline Flush 10 ML SYR IVP (11:14)
[2019-05-12 11:20] LABS: Abs Immature Grans 0.05 k/cumm (0.0-0.09); Absolute Basophil Count 0.04 k/cumm (0.0-0.2); Absolute Eosinophil Count 0.18 k/cumm (0.0-0.7); Absolute Lymphocyte Count 1.11 k/cumm (1.2-3.4); Absolute Monocyte Count 0.48 k/cumm (0.11-0.7); Absolute Neutrophil Count 2.17 k/cumm (1.2-6.7); Eosinophils % 4.5; HCT 40.5 % (40.0-50.0); HGB 13.2 g/dL (13.5-17.5); Immature Grans % 1.2 %; Lymphocytes % 27.5; Mean Corp. HGB Concentration 32.6 g/dL (32.0-36.0); Mean Corpuscular Hemoglobin 31.9 pg (27.0-33.0); Mean Corpuscular Volume 97.8 fL (80-95); Mean Platelet Volume 9.2 fL (8.0-11.0); Monocytes % 11.9; Neutrophils % 53.9; Platelet Count 207 x1000/uL (130-400); RBC 4.14 m/cumm (4.50-6.00); RBC Distribution Width 13.4 % (11.8-14.1); White Blood Cell Count 4.03 k/cumm (4.4-10.8)
[2019-05-12 11:31] LABS: ALT 38 U/L (16-63); AST 24 U/L (15-37); Albumin 3.3 g/dL (3.4-5.0); Alkaline Phosphatase 103 U/L (46-116); Anion Gap 6.7 mmol/L (3-11); BUN 8 mg/dL (7-18); Bilirubin, Total 0.5 mg/dL (0.2-1.0); CO2 31.3 mmol/L (21.0-32.0); CREATININE 0.91 mg/dL (0.70-1.30); Calcium 8.9 mg/dL (8.5-10.1); Chloride 104 mmol/L (98-107); Glucose 105 mg/dL (74-106); Sodium 142 mmol/L (136-145); Total Protein 6.8 g/dL (6.4-8.2)
[2019-05-15] MEDS: Normal Saline Flush 10 ML SYR IVP (14:46)
[2019-05-15] MEDS: Heparin 500 UNITS/5 ML SYRINGE IV (16:00)
== END 2019-06-07 23:59 | disposition home or self-care (01) ==
LOC: INF 14:00
PROVIDERS: PCP Internal Medicine; Visit Provider Nurse Practitioner Adult Health
DX: C20 Malignant neoplasm of rectum (principal); C78.7 Secondary malignant neoplasm of liver and intrahepatic bile duct; Z45.2 Encounter for adjustment and management of vascular access device
CPT/HCPCS: 36591; 80053; 96523; 85025

== ENCOUNTER 2019-06-13 02:53 | Outpatient (CLI) | payer BC, SELFPAY ==
[2019-06-13] MEDS: Omnipaque 350 MG/ML 50 ML BTL IJ (09:15)
[2019-06-13] MEDS: Breeza Beverage 473 ML BTL PO (09:15)
--- NOTE | 2019-06-13 10:42 | DI.CT_ITS ---
EXAM: CT CHEST/ABD/PEL W CLINICAL HISTORY: RECTAL CA METASTASIZED TO LUNG,C20,C78.00,ON CHEMO, TECHNIQUE: Post IV and oral contrast. COMPARISON: CT CHEST/ABD/PEL W from 01/08/2019 CT CHEST/ABD/PEL W from 04/21/2019 FINDINGS: Chest CT: A port is again noted over the right pectoral muscle. Heart size is normal. No pleural or pericardial effusions are seen. No infiltrates are seen. There are again noted to be innumerable pulmonary nodules bilaterally. The largest lesion is at the right lower lobe laterally and measures 1.5 cm in diameter. This appears stable when compared with the previous exam. A medial left upper l obe nodule measures 15 x 11 millimeters. This also appears stable. A subcarinal adenopathy also samuel ears unchanged. No new adenopathy is seen. Abdomen and pelvic CT: The liver, gallbladder, spleen, pancreas, kidneys and adrenals are unremarkabl e. There is no ascites. There is a mass again noted at the left posterolateral pelvic floor, adjace nt to the left acetabulum and left seminal vesicle. The mass has an infiltrative appearance and glenis ures roughly 5 by 3.7 cm. There is a questionable area of thickening on the left side of the rectum at a similar level. The lesion contacts the posterior acetabulum and there is some bony erosion in this location. There is no gross interval change. Prostate is not enlarged. The bladder is unrema rkable. There is a moderate to increased quantity of stool. There is diverticulosis but no evidence of diverticulitis. No adenopathy is seen. IMPRESSION: Stable appearance of metastatic pulmonary nodules and subcarinal adenopathy. Stable appearance of ma ss at the left lateral pelvic floor with bony erosion of the posterior acetabulum. No new abnormalit ies are identified.
[2019-06-13] MEDS: Normal Saline - Diluent 50 ML VIAL IV (10:44)
[2019-06-13] MEDS: Omnipaque 350 MG/ML 100 ML BTL IJ (10:45)
== END 2019-06-13 03:13 ==
PROVIDERS: PCP Internal Medicine; Visit Provider Internal Medicine Hematology & Oncology
DX: C20 Malignant neoplasm of rectum (principal); C78.02 Secondary malignant neoplasm of left lung; C79.51 Secondary malignant neoplasm of bone; C78.7 Secondary malignant neoplasm of liver and intrahepatic bile duct; Z92.21 Personal history of antineoplastic chemotherapy
CPT/HCPCS: 74177; 71260; J3490; Q9967

== ENCOUNTER 2019-06-30 08:00 | Outpatient (RCR) | payer BC, SELFPAY ==
[2019-06-10 08:42] LABS: Abs Immature Grans 0.04 k/cumm (0.0-0.09); Absolute Basophil Count 0.04 k/cumm (0.0-0.2); Absolute Eosinophil Count 0.51 k/cumm (0.0-0.7); Absolute Lymphocyte Count 1.09 k/cumm (1.2-3.4); Absolute Monocyte Count 0.56 k/cumm (0.11-0.7); Absolute Neutrophil Count 2.68 k/cumm (1.2-6.7); Basophils % 0.8; Eosinophils % 10.4; HCT 42.8 % (40.0-50.0); HGB 13.5 g/dL (13.5-17.5); Immature Grans % 0.8 %; Lymphocytes % 22.2; Mean Corp. HGB Concentration 31.5 g/dL (32.0-36.0); Mean Corpuscular Volume 98.2 fL (80-95); Mean Platelet Volume 9.7 fL (8.0-11.0); Monocytes % 11.4; Neutrophils % 54.4; Platelet Count 257 x1000/uL (130-400); RBC 4.36 m/cumm (4.50-6.00); RBC Distribution Width 14.2 % (11.8-14.1); White Blood Cell Count 4.92 k/cumm (4.4-10.8)
[2019-06-10 08:57] LABS: ALT 53 U/L (16-63); AST 29 U/L (15-37); Albumin 3.3 g/dL (3.4-5.0); Alkaline Phosphatase 119 U/L (46-116); Anion Gap 8.1 mmol/L (3-11); BUN 7 mg/dL (7-18); Bilirubin, Total 0.5 mg/dL (0.2-1.0); CO2 29.9 mmol/L (21.0-32.0); CREATININE 0.89 mg/dL (0.70-1.30); Calcium 8.8 mg/dL (8.5-10.1); Chloride 105 mmol/L (98-107); Glucose 116 mg/dL (74-106); Potassium 3.7 mmol/L (3.5-5.1); Sodium 143 mmol/L (136-145)
[2019-06-10] MEDS: Normal Saline Flush 10 ML SYR IVP (08:58)
[2019-06-13] MEDS: Heparin 500 UNITS/5 ML SYRINGE IV (09:05)
[2019-06-13] MEDS: Normal Saline Flush 10 ML SYR IVP (09:05)
[2019-06-20] MEDS: Normal Saline Flush 10 ML SYR IVP (10:37)
[2019-06-20] MEDS: Heparin 500 UNITS/5 ML SYRINGE IV (10:37)
[2019-06-20 10:51] LABS: Abs Immature Grans 0.05 k/cumm (0.0-0.09); Absolute Basophil Count 0.03 k/cumm (0.0-0.2); Absolute Eosinophil Count 0.37 k/cumm (0.0-0.7); Absolute Lymphocyte Count 1.02 k/cumm (1.2-3.4); Absolute Monocyte Count 0.62 k/cumm (0.11-0.7); Absolute Neutrophil Count 5.45 k/cumm (1.2-6.7); Basophils % 0.4; Eosinophils % 4.9; HCT 42.6 % (40.0-50.0); HGB 13.6 g/dL (13.5-17.5); Immature Grans % 0.7 %; Lymphocytes % 13.5; Mean Corp. HGB Concentration 31.9 g/dL (32.0-36.0); Mean Corpuscular Hemoglobin 31.1 pg (27.0-33.0); Mean Corpuscular Volume 97.3 fL (80-95); Mean Platelet Volume 9.8 fL (8.0-11.0); Monocytes % 8.2; Neutrophils % 72.3; RBC 4.38 m/cumm (4.50-6.00); RBC Distribution Width 14.8 % (11.8-14.1); White Blood Cell Count 7.54 k/cumm (4.4-10.8)
[2019-06-20 11:01] LABS: ALT 32 U/L (16-63); AST 22 U/L (15-37); Albumin 3.6 g/dL (3.4-5.0); Alkaline Phosphatase 120 U/L (46-116); Anion Gap 5.3 mmol/L (3-11); BUN 9 mg/dL (7-18); Bilirubin, Total 0.3 mg/dL (0.2-1.0); CO2 30.7 mmol/L (21.0-32.0); CREATININE 0.94 mg/dL (0.70-1.30); Chloride 105 mmol/L (98-107); Glucose 117 mg/dL (74-106); Potassium 4.4 mmol/L (3.5-5.1); Sodium 141 mmol/L (136-145); Total Protein 7.2 g/dL (6.4-8.2)
[2019-06-20 11:21] LABS: Diff Comment Diff Reviewed; Platelet Count 195 x1000/uL (130-400); RBC Morphology Normal
[2019-06-23 10:05] LABS: CEA 3.3 ng/mL (See Note)
[2019-06-30] MEDS: Normal Saline Flush 10 ML SYR IVP (08:26)
[2019-06-30 08:30] LABS: Abs Immature Grans 0.02 k/cumm (0.0-0.09); Absolute Basophil Count 0.03 k/cumm (0.0-0.2); Absolute Eosinophil Count 0.32 k/cumm (0.0-0.7); Absolute Lymphocyte Count 1.29 k/cumm (1.2-3.4); Absolute Monocyte Count 0.56 k/cumm (0.11-0.7); Absolute Neutrophil Count 3.75 k/cumm (1.2-6.7); Basophils % 0.5; Eosinophils % 5.4; HCT 44.2 % (40.0-50.0); HGB 14.2 g/dL (13.5-17.5); Immature Grans % 0.3 %; Lymphocytes % 21.6; Mean Corp. HGB Concentration 32.1 g/dL (32.0-36.0); Mean Corpuscular Hemoglobin 31.3 pg (27.0-33.0); Mean Corpuscular Volume 97.4 fL (80-95); Mean Platelet Volume 9.3 fL (8.0-11.0); Monocytes % 9.4; Neutrophils % 62.8; Platelet Count 237 x1000/uL (130-400); RBC 4.54 m/cumm (4.50-6.00); RBC Distribution Width 14.8 % (11.8-14.1); White Blood Cell Count 5.97 k/cumm (4.4-10.8)
[2019-06-30 08:50] LABS: ALT 31 U/L (16-63); AST 20 U/L (15-37); Albumin 3.5 g/dL (3.4-5.0); Alkaline Phosphatase 103 U/L (46-116); Anion Gap 8.8 mmol/L (3-11); BUN 7 mg/dL (7-18); Bilirubin, Total 0.5 mg/dL (0.2-1.0); CO2 29.2 mmol/L (21.0-32.0); CREATININE 0.89 mg/dL (0.70-1.30); Calcium 8.9 mg/dL (8.5-10.1); Chloride 104 mmol/L (98-107); Glucose 99 mg/dL (74-106); Potassium 3.8 mmol/L (3.5-5.1); Sodium 142 mmol/L (136-145); Total Protein 7.4 g/dL (6.4-8.2)
[2019-07-01 09:42] LABS: CEA 3.2 ng/mL (See Note)
== END 2019-07-08 23:59 | disposition home or self-care (01) ==
LOC: INF 08:00
PROVIDERS: Nurse Practitioner Adult Health; PCP Internal Medicine; Visit Provider Internal Medicine Hematology & Oncology
DX: C20 Malignant neoplasm of rectum (principal); C78.7 Secondary malignant neoplasm of liver and intrahepatic bile duct; Z45.2 Encounter for adjustment and management of vascular access device
CPT/HCPCS: 36591; 80053; 96523; 82378; 85025

== ENCOUNTER 2019-07-21 02:08 | Outpatient (RCR) | payer BC, SELFPAY ==
[2019-07-21] MEDS: Normal Saline Flush 10 ML SYR IVP (11:00)
[2019-07-21 11:30] LABS: Abs Immature Grans 0.06 k/cumm (0.0-0.09); Absolute Basophil Count 0.02 k/cumm (0.0-0.2); Absolute Eosinophil Count 0.21 k/cumm (0.0-0.7); Absolute Lymphocyte Count 1.03 k/cumm (1.2-3.4); Absolute Monocyte Count 0.43 k/cumm (0.11-0.7); Absolute Neutrophil Count 3.79 k/cumm (1.2-6.7); Basophils % 0.4; Eosinophils % 3.8; HCT 42.7 % (40.0-50.0); HGB 14.1 g/dL (13.5-17.5); Immature Grans % 1.1 %; Lymphocytes % 18.6; Mean Corpuscular Hemoglobin 32.1 pg (27.0-33.0); Mean Corpuscular Volume 97.3 fL (80-95); Mean Platelet Volume 9.5 fL (8.0-11.0); Monocytes % 7.8; Neutrophils % 68.3; Platelet Count 202 x1000/uL (130-400); RBC 4.39 m/cumm (4.50-6.00); RBC Distribution Width 15.4 % (11.8-14.1); White Blood Cell Count 5.54 k/cumm (4.4-10.8)
[2019-07-21 11:43] LABS: ALT 41 U/L (16-63); AST 26 U/L (15-37); Albumin 3.5 g/dL (3.4-5.0); Alkaline Phosphatase 114 U/L (46-116); Anion Gap 6.1 mmol/L (3-11); BUN 7 mg/dL (7-18); Bilirubin, Total 0.5 mg/dL (0.2-1.0); CO2 28.9 mmol/L (21.0-32.0); CREATININE 0.88 mg/dL (0.70-1.30); Calcium 8.7 mg/dL (8.5-10.1); Chloride 104 mmol/L (98-107); Glucose 125 mg/dL (74-106); Potassium 3.7 mmol/L (3.5-5.1); Sodium 139 mmol/L (136-145); Total Protein 7.1 g/dL (6.4-8.2)
[2019-07-22 18:37] LABS: CEA 3.9 ng/mL (See Note)
== END 2019-08-07 23:59 | disposition home or self-care (01) ==
LOC: INF 02:08
PROVIDERS: PCP Internal Medicine; Visit Provider Internal Medicine Hematology & Oncology
DX: C20 Malignant neoplasm of rectum (principal); C78.7 Secondary malignant neoplasm of liver and intrahepatic bile duct; Z45.2 Encounter for adjustment and management of vascular access device
CPT/HCPCS: 36415; 80053; 96523; 82378; 85025

== ENCOUNTER 2019-08-28 03:00 | Outpatient (CLI) | payer BC, SELFPAY ==
--- NOTE | 2019-08-28 | DI.CT_ITS ---
EXAM: CT CHEST/ABD/PEL W CLINICAL HISTORY: RECTAL CA METASIZED TO LUNG,C20,C78.00, ON CHEMO, RESTAGING EXAM TECHNIQUE: Imaging Protocol: Axial computed tomography images with coronal and sagittal reformatted images were created and reviewed CONTRAST MATERIAL: Intravenous: Omnipaque 350 Contrast volume:100 mL Oral: Yes COMPARISON: CT CT CHEST/ABD/PEL W from 06/13/2019 FINDINGS: CHEST: Tracheobronchial tree: Patent where visualized. Mediastinum and Christine: There has been no change in size of the subcarinal mass compared to the prior e xamination. Pulmonary parenchyma: No focal consolidation. No architectural distortion. There are innumerable pul monary nodules seen bilaterally. The largest nodule is again seen in the right lower lobe and is unc hanged in size. Pleura: No effusion or pneumothorax. Heart: The heart is not dilated. Mild coronary artery calcification is present. No significant peric ardial effusion is present. Aorta: Thoracic aorta non-dilated. Lymph nodes: Please see above. Bones:Degenerative changes are present. ABDOMEN: Liver: Normal density. No measurable mass. Portal, Superior Mesenteric, and Splenic Veins: Unremarkable. Gallbladder and Biliary Tract: No radiodense calculus or dilation. Pancreas: Normal density, no abnormal calcifications or inflammatory process. Spleen: Normal. Adrenals: No masses seen. Kidneys: Normal size, contour and axis. There is a nonobstructing stone in the upper pole of the left kidney. Tiny hypodensities are seen scattered throughout the kidneys. They are too small for furth er characterization, but likely reflect small cysts. Abdominal Aorta: Abdominal portion non-dilated. Mild atherosclerosis. Bowel: No obstruction or bowel wall thickening. Appendix is unremarkable. Colonic diverticulosis is p resent but no evidence acute diverticulitis. Peritoneal Cavity: No ascites, collection or mesenteric inflammatory response. There is no change in the infiltrative soft tissue along the left posterior lateral pelvic floor. There is again seen invo lvement of the left seminal vesicle and possible anterolateral aspect of the rectum. There is unchan ged erosion of the left pelvis. Lymph Nodes: Within normal limits. Bones: Please refer the above peritoneal cavity section. Soft Tissues: Unremarkable. PELVIS: Bladder: Symmetric distention, no gross wall thickening. Reproductive Organs: Please see above. Lymph Nodes: Within normal limits. Bones: Please see above. IMPRESSION: 1. Stable soft tissue mass in the left posterior pelvis. Stable involvement of the left seminal vesi robert with possible rectal involvement. Stable erosive change involving the left pelvis. 2. Stable pulmonary metastatic disease and subcarinal adenopathy RADIATION DOSE DELIVERED: 1,934.01mGy.cm Total DLP DATA REPOSITORY: All CT scans at this facility are submitted to the National Radiology Data Registry (NRDR) Dose Index Registry (DIR) with the [employer] (ACR). RADIATION OPTIMIZATION: All CT scans at this facility use at least one of these dose optimization te chniques: automated exposure control; mA and/or kV adjustment per patient size (includes targeted exa ms where dose is matched to clinical indication); or iterative reconstruction.
[2019-08-28] MEDS: Normal Saline Flush 10 ML SYR IVP (10:02)
[2019-08-28] MEDS: Breeza Beverage 473 ML BTL PO ×2 (10:03→10:04)
[2019-08-28] MEDS: Omnipaque 350 MG/ML 100 ML BTL IJ (10:03)
[2019-08-28] MEDS: Normal Saline - Diluent 50 ML VIAL IV (10:04)
[2019-08-28] MEDS: Omnipaque 350 MG/ML 50 ML BTL PO (10:05)
== END 2019-08-28 03:20 ==
PROVIDERS: PCP Internal Medicine; Visit Provider Internal Medicine Hematology & Oncology
DX: C20 Malignant neoplasm of rectum (principal); C78.02 Secondary malignant neoplasm of left lung; Z92.21 Personal history of antineoplastic chemotherapy; R19.09 Other intra-abdominal and pelvic swelling, mass and lump
CPT/HCPCS: 74177; 71260; J3490; Q9967

== ENCOUNTER 2019-08-28 03:29 | Outpatient (RCR) | payer BC, SELFPAY ==
[2019-08-11] MEDS: Normal Saline Flush 10 ML SYR IVP (13:38)
[2019-08-11] MEDS: Heparin 500 UNITS/5 ML SYRINGE IVP (13:38)
[2019-08-11 13:46] LABS: Abs Immature Grans 0.03 k/cumm (0.0-0.09); Absolute Basophil Count 0.02 k/cumm (0.0-0.2); Absolute Eosinophil Count 0.23 k/cumm (0.0-0.7); Absolute Lymphocyte Count 1.39 k/cumm (1.2-3.4); Absolute Monocyte Count 0.51 k/cumm (0.11-0.7); Absolute Neutrophil Count 2.68 k/cumm (1.2-6.7); Basophils % 0.4; Eosinophils % 4.7; HCT 40.5 % (40.0-50.0); HGB 13.2 g/dL (13.5-17.5); Immature Grans % 0.6 %; Lymphocytes % 28.6; Mean Corp. HGB Concentration 32.6 g/dL (32.0-36.0); Mean Corpuscular Hemoglobin 32.2 pg (27.0-33.0); Mean Corpuscular Volume 98.8 fL (80-95); Mean Platelet Volume 9.4 fL (8.0-11.0); Monocytes % 10.5; Neutrophils % 55.2; Platelet Count 197 x1000/uL (130-400); RBC Distribution Width 14.8 % (11.8-14.1); White Blood Cell Count 4.86 k/cumm (4.4-10.8)
[2019-08-11 14:04] LABS: ALT 36 U/L (16-63); AST 23 U/L (15-37); Albumin 3.5 g/dL (3.4-5.0); Alkaline Phosphatase 104 U/L (46-116); Anion Gap 7.1 mmol/L (3-11); BUN 10 mg/dL (7-18); Bilirubin, Total 0.5 mg/dL (0.2-1.0); CO2 28.9 mmol/L (21.0-32.0); CREATININE 0.92 mg/dL (0.70-1.30); Calcium 8.8 mg/dL (8.5-10.1); Chloride 102 mmol/L (98-107); Glucose 103 mg/dL (74-106); Sodium 138 mmol/L (136-145); Total Protein 7.1 g/dL (6.4-8.2)
[2019-08-12 11:04] LABS: CEA 5.1 ng/mL (See Note)
[2019-08-28] MEDS: Normal Saline Flush 10 ML SYR IVP (08:13)
[2019-08-28] MEDS: Heparin 500 UNITS/5 ML SYRINGE IVP (08:14)
[2019-08-28 08:18] LABS: Abs Immature Grans 0.03 k/cumm (0.0-0.09); Absolute Basophil Count 0.03 k/cumm (0.0-0.2); Absolute Eosinophil Count 0.23 k/cumm (0.0-0.7); Absolute Lymphocyte Count 1.15 k/cumm (1.2-3.4); Absolute Monocyte Count 0.34 k/cumm (0.11-0.7); Absolute Neutrophil Count 2.76 k/cumm (1.2-6.7); Basophils % 0.7; Eosinophils % 5.1; HCT 42.9 % (40.0-50.0); HGB 13.8 g/dL (13.5-17.5); Immature Grans % 0.7 %; Lymphocytes % 25.3; Mean Corp. HGB Concentration 32.2 g/dL (32.0-36.0); Mean Corpuscular Hemoglobin 31.9 pg (27.0-33.0); Mean Corpuscular Volume 99.3 fL (80-95); Mean Platelet Volume 9.3 fL (8.0-11.0); Monocytes % 7.5; Neutrophils % 60.7; Platelet Count 209 x1000/uL (130-400); RBC 4.32 m/cumm (4.50-6.00); RBC Distribution Width 14.3 % (11.8-14.1); White Blood Cell Count 4.54 k/cumm (4.4-10.8)
[2019-08-28 08:46] LABS: ALT 46 U/L (16-63); AST 28 U/L (15-37); Albumin 3.4 g/dL (3.4-5.0); Alkaline Phosphatase 120 U/L (46-116); BUN 6 mg/dL (7-18); Bilirubin, Total 0.5 mg/dL (0.2-1.0); CREATININE 0.98 mg/dL (0.70-1.30); Calcium 8.9 mg/dL (8.5-10.1); Chloride 103 mmol/L (98-107); Glucose 105 mg/dL (74-106); Potassium 3.8 mmol/L (3.5-5.1); Sodium 138 mmol/L (136-145)
== END 2019-09-07 23:59 | disposition home or self-care (01) ==
LOC: INF 03:29
PROVIDERS: Nurse Practitioner Adult Health; PCP Internal Medicine; Visit Provider Internal Medicine Hematology & Oncology
DX: C20 Malignant neoplasm of rectum (principal); C78.7 Secondary malignant neoplasm of liver and intrahepatic bile duct; Z45.2 Encounter for adjustment and management of vascular access device
CPT/HCPCS: 36591; 80053; 82378; 85025

== ENCOUNTER 2019-09-19 05:21 | Outpatient (RCR) | payer BC, SELFPAY ==
[2019-09-19] MEDS: Normal Saline Flush 10 ML SYR IVP (09:54)
[2019-09-19] MEDS: Heparin 500 UNITS/5 ML SYRINGE IV (09:55)
[2019-09-19 10:11] LABS: Abs Immature Grans 0.03 k/cumm (0.0-0.09); Absolute Basophil Count 0.02 k/cumm (0.0-0.2); Absolute Lymphocyte Count 0.98 k/cumm (1.2-3.4); Absolute Monocyte Count 0.37 k/cumm (0.11-0.7); Absolute Neutrophil Count 3.91 k/cumm (1.2-6.7); Basophils % 0.4; Eosinophils % 3.6; HCT 42.4 % (40.0-50.0); HGB 13.9 g/dL (13.5-17.5); Immature Grans % 0.5 %; Lymphocytes % 17.8; Mean Corp. HGB Concentration 32.8 g/dL (32.0-36.0); Mean Corpuscular Hemoglobin 32.6 pg (27.0-33.0); Mean Corpuscular Volume 99.3 fL (80-95); Mean Platelet Volume 9.9 fL (8.0-11.0); Monocytes % 6.7; Platelet Count 173 x1000/uL (130-400); RBC 4.27 m/cumm (4.50-6.00); RBC Distribution Width 14.1 % (11.8-14.1); White Blood Cell Count 5.51 k/cumm (4.4-10.8)
[2019-09-19 10:29] LABS: ALT 41 U/L (16-63); AST 35 U/L (15-37); Albumin 3.6 g/dL (3.4-5.0); Alkaline Phosphatase 113 U/L (46-116); Anion Gap 6.4 mmol/L (3-11); BUN 7 mg/dL (7-18); Bilirubin, Total 0.5 mg/dL (0.2-1.0); CO2 29.6 mmol/L (21.0-32.0); CREATININE 0.94 mg/dL (0.70-1.30); Calcium 8.8 mg/dL (8.5-10.1); Chloride 105 mmol/L (98-107); Glucose 107 mg/dL (74-106); Potassium 4.1 mmol/L (3.5-5.1); Sodium 141 mmol/L (136-145); Total Protein 7.2 g/dL (6.4-8.2)
[2019-09-22 10:16] LABS: CEA 4.4 ng/mL (See Note)
== END 2019-10-07 23:59 | disposition home or self-care (01) ==
LOC: INF 05:21
PROVIDERS: PCP Internal Medicine; Visit Provider Internal Medicine Hematology & Oncology
DX: C20 Malignant neoplasm of rectum (principal); C78.7 Secondary malignant neoplasm of liver and intrahepatic bile duct; Z45.2 Encounter for adjustment and management of vascular access device
CPT/HCPCS: 36591; 80053; 82378; 85025

== ENCOUNTER 2019-10-28 01:17 | Outpatient (CLI) | payer BC, SELFPAY ==
[2019-10-28] MEDS: Omnipaque 350 MG/ML 50 ML BTL IJ (08:27)
--- NOTE | 2019-10-28 08:30 | DI.CT_ITS ---
EXAM: CT CHEST/ABD/PEL W CLINICAL HISTORY: RECTAL CA METASTASIZED TO LUNG, C20,C78.00,ON CHEMO TECHNIQUE: Imaging Protocol: Axial computed tomography images with coronal and sagittal reformatted images were created and reviewed CONTRAST MATERIAL: Intravenous: Omnipaque 350 Contrast volume:100 mL Oral: Yes COMPARISON: CT CT CHEST/ABD/PEL W from 08/28/2019 FINDINGS: CHEST: Tracheobronchial tree: Patent where visualized. Mediastinum and Christine: There is been no change in size of the subcarinal mass. It measures 4.5 x 3.7 cm. Pulmonary parenchyma: There are new mobile bilateral noncalcified pulmonary nodules. The largest is again seen in the right lower lobe and measures 1.8 cm. No focal consolidating infiltrates. Pleura: No effusion or pneumothorax. Heart: The heart is not dilated. Mild coronary artery calcification. No significant pericardial effu jonny. Aorta: Thoracic aorta non-dilated. Lymph nodes: Please see above. Bones:Degenerative changes. Tubes, Catheters, and Lines: The indwelling central venous catheter is in good position. The tip is seen in the superior vena cava. Soft tissues: Unremarkable. ABDOMEN: Liver: Normal density. No measurable mass. Portal, Superior Mesenteric, and Splenic Veins: Unremarkable. Gallbladder and Biliary Tract: No radiodense calculus or dilation. Pancreas: Normal density, no abnormal calcifications or inflammatory process. Spleen: Normal. Adrenals: No masses seen. Kidneys: Normal size, contour and axis. Stable left nephrolithiasis. No hydronephrosis. Stable tiny hypodensities in the kidneys likely reflecting cysts. Abdominal Aorta: Abdominal portion non-dilated. Atherosclerosis. Bowel: No obstruction or bowel wall thickening. Appendix is unremarkable. Colonic diverticulosis but no evidence of acute diverticulitis Peritoneal Cavity: No ascites, collection or mesenteric inflammatory response. Lymph Nodes: Within normal limits. Bones: Degenerative changes. Soft Tissues: There is no change in size of the mass in the left pelvic sidewall or its involvement i n the adjacent left hemipelvis and seminal vesicle. PELVIS: Bladder: Symmetric distention, no gross wall thickening. Reproductive Organs: Unremarkable as visualized. Lymph Nodes: Within normal limits. Bones: Degenerative changes. IMPRESSION: Stable metastatic disease of the chest, abdomen and pelvis since 08/28/2019. RADIATION DOSE DELIVERED: Total DLP DATA REPOSITORY: All CT scans at this facility are submitted to the National Radiology Data Registry (NRDR) Dose Index Registry (DIR) with the [employer] (ACR). RADIATION OPTIMIZATION: All CT scans at this facility use at least one of these dose optimization te chniques: automated exposure control; mA and/or kV adjustment per patient size (includes targeted exa ms where dose is matched to clinical indication); or iterative reconstruction.
[2019-10-28] MEDS: Omnipaque 350 MG/ML 100 ML BTL IJ (11:17)
== END 2019-10-28 01:37 ==
PROVIDERS: PCP Internal Medicine; Visit Provider Internal Medicine Hematology & Oncology
DX: C78.01 Secondary malignant neoplasm of right lung (principal); C20 Malignant neoplasm of rectum; Z45.2 Encounter for adjustment and management of vascular access device; C78.89 Secondary malignant neoplasm of other digestive organs; C78.02 Secondary malignant neoplasm of left lung
CPT/HCPCS: 74177; 71260; J3490; Q9967

== ENCOUNTER 2019-10-28 01:54 | Outpatient (RCR) | payer BC, SELFPAY ==
[2019-10-09 13:59] LABS: Abs Immature Grans 0.04 k/cumm (0.0-0.09); Absolute Basophil Count 0.04 k/cumm (0.0-0.2); Absolute Eosinophil Count 0.18 k/cumm (0.0-0.7); Absolute Lymphocyte Count 1.08 k/cumm (1.2-3.4); Absolute Monocyte Count 0.44 k/cumm (0.11-0.7); Eosinophils % 4.7; HCT 43.8 % (40.0-50.0); Lymphocytes % 28.3; Mean Platelet Volume 9.2 fL (8.0-11.0); Monocytes % 11.5; Neutrophils % 53.5; Platelet Count 199 x1000/uL (130-400); RBC 4.38 m/cumm (4.50-6.00); RBC Distribution Width 14.1 % (11.8-14.1); White Blood Cell Count 3.81 k/cumm (4.4-10.8)
[2019-10-09 14:05] LABS: Absolute Neutrophil Count 2.04 k/cumm (1.2-6.7)
[2019-10-09] MEDS: Heparin 500 UNITS/5 ML SYRINGE IV (14:08)
[2019-10-09] MEDS: Normal Saline Flush 10 ML SYR IVP (14:08)
[2019-10-09 14:11] LABS: ALT 40 U/L (16-63); AST 23 U/L (15-37); Albumin 3.4 g/dL (3.4-5.0); Alkaline Phosphatase 111 U/L (46-116); Anion Gap 6.9 mmol/L (3-11); BUN 9 mg/dL (7-18); Bilirubin, Total 0.5 mg/dL (0.2-1.0); CO2 29.1 mmol/L (21.0-32.0); CREATININE 0.85 mg/dL (0.70-1.30); Chloride 102 mmol/L (98-107); Glucose 129 mg/dL (74-106); Potassium 3.7 mmol/L (3.5-5.1); Sodium 138 mmol/L (136-145); Total Protein 7.1 g/dL (6.4-8.2)
[2019-10-10 12:59] LABS: CEA 4.5 ng/mL (See Note)
[2019-10-28] MEDS: Heparin 500 UNITS/5 ML SYRINGE IV (08:20)
[2019-10-28] MEDS: Normal Saline Flush 10 ML SYR IVP (08:21)
[2019-10-28 08:24] LABS: Abs Immature Grans 0.07 k/cumm (0.0-0.09); Absolute Basophil Count 0.02 k/cumm (0.0-0.2); Absolute Eosinophil Count 0.19 k/cumm (0.0-0.7); Absolute Lymphocyte Count 1.18 k/cumm (1.2-3.4); Absolute Monocyte Count 0.33 k/cumm (0.11-0.7); Absolute Neutrophil Count 2.49 k/cumm (1.2-6.7); Basophils % 0.5; Eosinophils % 4.4; HCT 42.7 % (40.0-50.0); HGB 13.8 g/dL (13.5-17.5); Immature Grans % 1.6 %; Lymphocytes % 27.6; Mean Corp. HGB Concentration 32.3 g/dL (32.0-36.0); Mean Corpuscular Hemoglobin 32.3 pg (27.0-33.0); Mean Platelet Volume 9.5 fL (8.0-11.0); Monocytes % 7.7; Neutrophils % 58.2; Platelet Count 171 x1000/uL (130-400); RBC 4.27 m/cumm (4.50-6.00); RBC Distribution Width 14.5 % (11.8-14.1); White Blood Cell Count 4.28 k/cumm (4.4-10.8)
[2019-10-28 08:39] LABS: ALT 54 U/L (16-63); AST 32 U/L (15-37); Albumin 3.4 g/dL (3.4-5.0); Alkaline Phosphatase 124 U/L (46-116); Anion Gap 8.4 mmol/L (3-11); BUN 5 mg/dL (7-18); Bilirubin, Total 0.5 mg/dL (0.2-1.0); CO2 27.6 mmol/L (21.0-32.0); CREATININE 0.99 mg/dL (0.70-1.30); Calcium 8.9 mg/dL (8.5-10.1); Chloride 105 mmol/L (98-107); Glucose 123 mg/dL (74-106); Sodium 141 mmol/L (136-145)
[2019-10-29 09:18] LABS: CEA 4.1 ng/mL (See Note)
== END 2019-11-07 23:59 | disposition home or self-care (01) ==
LOC: INF 01:54
PROVIDERS: PCP Internal Medicine; Visit Provider Internal Medicine Hematology & Oncology
DX: C20 Malignant neoplasm of rectum (principal); C78.7 Secondary malignant neoplasm of liver and intrahepatic bile duct; Z45.2 Encounter for adjustment and management of vascular access device
CPT/HCPCS: 36591; 80053; 82378; 85025

== ENCOUNTER 2019-11-18 07:16 | Day surgery (SDC) | payer BC, SELFPAY ==
--- NOTE | 2019-11-18 06:29 | COLE_ITS ---
Date of service: 11/18/19 Colonoscopy Report Date of procedure: 11/18/19 Pre-op diagnosis general: Rectal bleeding, Hx of rectal cancer Procedure: Flexible sigmoidoscopy Surgeon: Brandy Sainz Anesthesia proc note operative: other (General/ ASA /) Complications: None Disposition: same day Indications: The patient is here for Sigmoidoscopy pre-op for further investigation of persistent rectal bleeding x 2 years. He has the diagnosis of stage IV rectal cancer and receives chemotherapy treatments x 3 weeks. -Discussed Sigmoidoscopy bowel prep as well as the procedure. Discussed possible complications of the procedure to include bleeding, pain, perforation, missed small lesion/polyp, sore throat, aspiration and adverse reaction to the medications. Questions were answered to patient?s satisfaction. No guarantees were implied or given. Prep: Other (fleets enemas) Procedure Description: After informed consent was obtained the patient was taken to the procedure room and placed in a left decubitous position. Monitors were applied and a time out was done. The patients name, date of , procedure, allergies to medications and metal in their body was reviewed. The patient was then sedated. Once sedated and comfortable a rectal exam was done. External exam was normal. Internal exam revealed a normal sphincter tone and no palpable masses. The prostate []. The scope was then introduced and retro-flexed. [] internal hemorrhoids were identified. The scope was then advanced to the splenic flexure [] difficulty. The prep was adequate. The scope was then slowly retracted over [] minutes back into the rectum. Polyps were removed at []. The scope was removed and the patient was woken up and taken back to Same day surgery in stable condition. The patient tolerated the procedure well and there were no immediate complicatio ns. Follow up: The patient should follow up in [] years unless they develop changes in bowel habits or other new gastrointestinal complaints.
--- NOTE | 2019-11-18 06:30 | W.PM.DSUDISC ---
Discharge Plan Disposition Patient Disposition: HOME Condition: Good Discharge Details Reason For Visit: RECTAL CA,RECTAL BLEEDING Attending Provider: Brandy Sainz Primary Care Provider: Jamshid Goss Home Meds and New Rx's Prescriptions: Continued oxycodone 5 mg capsule 5 mg PO Q4H PRNRF: 0 morphine 15 mg tablet extended release 15 mg PO BID RF: 0 amlodipine 10 mg tablet 10 mg PO DAILY RF: 0 furosemide [Lasix] 20 mg tablet 20 mg PO DAILY RF: 0 fluorouracil 5 gram/100 mL solution See Rx Instructions continuous intra-arterial infusion .COMPLEX RF: 0 polyethylene glycol 3350 17 gram Powder In Packet 17 g PO BID RF: 0 ondansetron HCl 8 mg Tablet 8 mg PO PRN PRNRF: 0 sennosides-docusate sodium 8.6-50 mg Capsule 1 tab-cap PO BID RF: 0 Discontinued polyethylene glycol 3350 [Miralax] 17 GM powder in packet 255 gm PO for colonoscopy Qty: 1 RF: 0 Discharge Instructions Additional Instructions: Findings: Ulcerated rectal mass Follow up: with Dr. Concepcion on Sunday Please call if you develop: fevers >101.5 Nausea or Vomiting Abdominal pain that is not transient DAY SURGERY UNIT POST ENDOSCOPY INSTRUCTIONS 1. Because there will be medication in your system for the next 24 hours, you may feel a little sleepy. Your coordination will be affected. Therefore: a. Do not drive or operate dangerous equipment for 24 hours. b. Do not drink alcohol beverages for 24 hours (not even beer). c. Plan to go home and rest for the day. 2. Generally there are no restrictions on your activity after a day or so has gone by, but you may feel a bit fatigued for a few days. 3 After you arrive home you may have a light meal and return to a normal diet as you can tolerate it without feeling sick to your stomach. 4. After surgery, you may feel pain or discomfort. This should be only transient, but if it persists please contact your doctor. 5. If there are any questions regarding the findings of your procedure, please feel free to contact your doctor. 6. If you are unable to contact your doctor with a problem, contact the hospital at [phone]. 7. Continue all your regular medications unless directed otherwise. I understand the above instructions and have no questions. Signature of Patient or Responsible Adult Escort Date/Time Name of Responsible Adult Escort Signature of Nurse Date/Time Activity:: Activity as Tolerated Diet:: As Tolerated Discharge Orders Discharge Orders: Discharge Order (Routine); Ordered 11/18/19 Ordered By: Brandy Sainz
[2019-11-18 07:18] VITALS: BP 132/92; PULSE 59; RESP 18; TEMP 36.8; O2SAT 100
[2019-11-18] MEDS: Lactated Ringers 1,000 ML 80 ML IV (08:14)
[2019-11-18] MEDS: Normal Saline-STERILE FIELD 0.9% 10 ML SYR (08:15)
--- NOTE | 2019-11-18 08:40 | BOWEL_PTH ---
PATIENT: Kit Dudley LOC: [facility] U#:[id number] AGE/SX: 59/M ROOM: RE11/18/[address]: Brandy Sainz MD : [id number] BED: DIS: 11/18/2019 SPEC #: [id number] RECD: 11/18/19 12:53 STATUS: TANA RE #: [id number] LUDIN: 11/18/19 08:[address]: Brandy Sainz DEPT: Surgical Specimen RECD BY: Agnes Colon ENTERED: 11/18/19 12:54 SP TYPE: Bowel OTHR DR: Jamshid Goss Tissues: 1 - BIOPSY BOWEL Procedures: GROSS AND MICRO LEVEL 4 Comments: [id number]
--- NOTE | 2019-11-18 08:55 | W.PM.ENDDOP ---
Date of service: 11/18/19 Time of Service: 08:55 Endoscopy Report DATE OF PROCEDURE: 11/18/19 PRE-OP DIAGNOSIS: Hx of rectal cancer, rectal bleeding POST-OP DIAGNOSIS: other (Rectal mass) PROCEDURE: Flexible sigmoidoscopy SURGEON: Brandy Sainz ANESTHESIA: other (General/ ASA 2/ Alisson Chang CRNA) ESTIMATED BLOOD LOSS: 3 PATHOLOGY: other (Biopsies of rectal mass) COMPLICATIONS: None DISPOSITION: same day INDICATIONS: 59 y/o male with stage IV rectal cancer with mets to his liver presents with complaints of persistent rectal bleeding, which is bright red in color. He report that since starting chemo 2 years ago he started having rectal bleeding. He reports that his BMs fluctuate between hard stools and diarrhea, with this fluctuation is when he notices the bleeding. He reports daily rectal pain, which he takes Morphine and oxycodone for. His last chemo treatment was on October 27, 2019. His port is on his right side. PREP: Other (Fleets enema) FINDINGS: Rectal mass at 3-5 cm just past the dentate line. Protruding into the rectum. Ulcerated and bleeding PROCEDURE DESCRIPTION: After informed consent was obtained the patient was taken to the procedure room and placed in a left decubitous position. Monitors were applied and a time out was done. The patients name, date of , procedure, allergies to medications and metal in their body was reviewed. The patient was then sedated. Once sedated and comfortable a rectal exam was done. External exam was normal. Internal exam revealed a relaxed sphincter tone and a palpable mass. There was soft stool in the rectum which was removed. The scope was then introduced and retro-flexed. No internal hemorrhoids were identified. The scope was then advanced to the splenic flexure. The prep was adequate. The scope was then slowly retracted over 3-4 minutes back into the rectum. An ulcerated mass was noted at 3-5 cm, just past the debntate line. Biopsies were done. The scope was removed and the patient was woken up and taken back to Same day surgery in stable condition. The patient tolerated the procedure well and there were no immediate complications. Follow up: With Dr. Concepcion as scheduled on Sunday
[2019-11-18 09:22] VITALS: BP 140/86; PULSE 59; RESP 18; TEMP 36.8; O2SAT 96
[2019-11-18] MEDS: HYDROmorphone 2 MG/ML VIAL 0.5 MG IVP (09:47)
[2019-11-18 10:18] VITALS: BP 130/84; PULSE 58; RESP 18; TEMP 36.8; O2SAT 96
[2019-11-18] MEDS: Normal Saline Flush 10 ML SYR IV (10:36)
[2019-11-18] MEDS: Heparin 500 UNITS/5 ML SYRINGE (10:36)
== END 2019-11-18 10:40 | disposition home or self-care (01) ==
LOC: SUR 07:16
PROVIDERS: PCP Internal Medicine; Visit Provider Surgery
PROC: 0DJD8ZZ Inspection of Lower Intestinal Tract, Via Natural or Artificial Opening Endoscopic (ICD-10-PCS; CPT 45330; principal; 2019-11-18 08:30)
DX: K62.5 Hemorrhage of anus and rectum (principal); D37.5 Neoplasm of uncertain behavior of rectum; C20 Malignant neoplasm of rectum; Z45.2 Encounter for adjustment and management of vascular access device; Z79.899 Other long term (current) drug therapy
CPT/HCPCS: 45331; 88305; J2001

== ENCOUNTER 2019-12-05 04:35 | Outpatient (RCR) | payer BC, SELFPAY ==
[2019-11-21] MEDS: Heparin 500 UNITS/5 ML SYRINGE IV (10:00)
[2019-11-21] MEDS: Normal Saline Flush 10 ML SYR IVP (10:00)
[2019-11-21 10:07] LABS: Abs Immature Grans 0.05 10^3/uL (0.0-0.06); Absolute Basophil Count 0.05 10^3/uL (0.0-0.2); Absolute Eosinophil Count 0.28 10^3/uL (0.0-0.7); Absolute Monocyte Count 0.54 10^3/uL (0.1-0.8); Absolute Neutrophil Count 2.63 10^3/uL (1.2-6.7); Basophils % 1.1; Eosinophils % 5.9; HCT 40.9 % (40.0-50.0); HGB 13.1 g/dL (13.5-17.5); Immature Grans % 1.1; Lymphocytes % 25.3; MCH 31.7 pg (27.0-33.0); MPV 9.7 fL (8.0-11.0); Monocytes % 11.4; Neutrophils % 55.2; Nucleated RBC 0 %; Platelet Count 194 10^3/uL (130-400); RBC 4.13 10^6/uL (4.36-5.78); RDW 13.9 % (11.8-14.1); RDW-SD 51.4 fL; WBC 4.75 10^3/uL (4.4-10.8)
[2019-11-21 10:25] LABS: ALT 45 U/L (16-63); AST 32 U/L (15-37); Albumin 3.5 g/dL (3.4-5.0); Alkaline Phosphatase 107 U/L (46-116); Anion Gap 5.4 mmol/L (3-11); BUN 9 mg/dL (7-18); Bilirubin, Total 0.5 mg/dL (0.2-1.0); CO2 30.6 mmol/L (21.0-32.0); CREATININE 0.95 mg/dL (0.70-1.30); Calcium 9.2 mg/dL (8.5-10.1); Chloride 103 mmol/L (98-107); Glucose 103 mg/dL (74-106); Potassium 4.1 mmol/L (3.5-5.1); Sodium 139 mmol/L (136-145); Total Protein 7.2 g/dL (6.4-8.2)
[2019-12-05] MEDS: Heparin 500 UNITS/5 ML SYRINGE IV (09:45)
[2019-12-05] MEDS: Normal Saline Flush 10 ML SYR IVP (09:45)
[2019-12-05 10:15] LABS: Abs Immature Grans 0.05 10^3/uL (0.0-0.06); Absolute Basophil Count 0.02 10^3/uL (0.0-0.2); Absolute Eosinophil Count 0.16 10^3/uL (0.0-0.7); Absolute Lymphocyte Count 1.04 10^3/uL (1.2-3.4); Absolute Monocyte Count 0.46 10^3/uL (0.1-0.8); Absolute Neutrophil Count 4.51 10^3/uL (1.2-6.7); Basophils % 0.3; Eosinophils % 2.6; HCT 41.4 % (40.0-50.0); HGB 13.2 g/dL (13.5-17.5); Immature Grans % 0.8; Lymphocytes % 16.7; MCH 32.4 pg (27.0-33.0); MCHC 31.9 % (32.0-36.0); MCV 101.5 fL (80-95); MPV 9.8 fL (8.0-11.0); Monocytes % 7.4; Neutrophils % 72.2; Nucleated RBC 0 %; Platelet Count 180 10^3/uL (130-400); RBC 4.08 10^6/uL (4.36-5.78); RDW 13.9 % (11.8-14.1); RDW-SD 51.4 fL; WBC 6.24 10^3/uL (4.4-10.8)
[2019-12-05 10:58] LABS: ALT 32 U/L (16-63); AST 23 U/L (15-37); Albumin 3.4 g/dL (3.4-5.0); Alkaline Phosphatase 125 U/L (46-116); Anion Gap 8.2 mmol/L (3-11); BUN 7 mg/dL (7-18); Bilirubin, Total 0.4 mg/dL (0.2-1.0); CO2 27.8 mmol/L (21.0-32.0); CREATININE 0.95 mg/dL (0.70-1.30); Calcium 9.1 mg/dL (8.5-10.1); Chloride 104 mmol/L (98-107); Glucose 119 mg/dL (74-106); Potassium 3.8 mmol/L (3.5-5.1); Sodium 140 mmol/L (136-145); Total Protein 6.9 g/dL (6.4-8.2)
[2019-12-08 09:13] LABS: CEA 5.1 ng/mL (See Note)
== END 2019-12-08 23:59 | disposition home or self-care (01) ==
LOC: INF 04:35
PROVIDERS: PCP Internal Medicine; Visit Provider Internal Medicine Hematology & Oncology
DX: C20 Malignant neoplasm of rectum (principal); C78.7 Secondary malignant neoplasm of liver and intrahepatic bile duct; Z45.2 Encounter for adjustment and management of vascular access device
CPT/HCPCS: 36591; 80053; 82378; 85025

== ENCOUNTER 2019-12-10 21:19 | Outpatient (REF) | payer BC, SELFPAY ==
[2019-12-13 05:05] LABS: Patient Race White; SARS-CoV-2 RNA Undetected (Undetected); SARS-CoV-2 Specimen Source Nasopharynx
== END 2019-12-10 21:39 ==
LOC: NCHCN 21:19
PROVIDERS: PCP Internal Medicine; Visit Provider Internal Medicine
DX: Z20.828 Contact with and (suspected) exposure to other viral communicable diseases (principal)
CPT/HCPCS: U0003

== ENCOUNTER 2020-01-02 04:31 | Outpatient (RCR) | payer BC, SELFPAY ==
[2019-12-26] MEDS: Heparin 500 UNITS/5 ML SYRINGE IV (07:45)
[2019-12-26] MEDS: Normal Saline Flush 10 ML SYR IVP (07:45)
[2019-12-26 07:53] LABS: Abs Immature Grans 0.03 10^3/uL (0.0-0.06); Absolute Basophil Count 0.04 10^3/uL (0.0-0.2); Absolute Lymphocyte Count 1.06 10^3/uL (1.2-3.4); Absolute Monocyte Count 0.52 10^3/uL (0.1-0.8); Absolute Neutrophil Count 3.55 10^3/uL (1.2-6.7); Basophils % 0.7; Eosinophils % 5.5; HCT 42.3 % (40.0-50.0); HGB 13.4 g/dL (13.5-17.5); Immature Grans % 0.5; Lymphocytes % 19.3; MCH 31.6 pg (27.0-33.0); MCHC 31.7 % (32.0-36.0); MCV 99.8 fL (80-95); MPV 9.4 fL (8.0-11.0); Monocytes % 9.5; Neutrophils % 64.5; Nucleated RBC 0 %; Platelet Count 233 10^3/uL (130-400); RBC 4.24 10^6/uL (4.36-5.78); RDW 13.1 % (11.8-14.1); RDW-SD 47.8 fL
[2019-12-26 08:06] LABS: ALT 32 U/L (16-63); AST 22 U/L (15-37); Albumin 3.5 g/dL (3.4-5.0); Alkaline Phosphatase 98 U/L (46-116); Anion Gap 5.8 mmol/L (3-11); BUN 9 mg/dL (7-18); Bilirubin, Total 0.6 mg/dL (0.2-1.0); CO2 29.2 mmol/L (21.0-32.0); CREATININE 0.85 mg/dL (0.70-1.30); Chloride 104 mmol/L (98-107); Glucose 102 mg/dL (74-106); Potassium 3.8 mmol/L (3.5-5.1); Sodium 139 mmol/L (136-145); Total Protein 7.2 g/dL (6.4-8.2)
[2020-01-02] MEDS: Heparin 500 UNITS/5 ML SYRINGE IV (07:57)
[2020-01-02] MEDS: Normal Saline Flush 10 ML SYR IVP (07:57)
[2020-01-02 08:10] LABS: Abs Immature Grans 0.02 10^3/uL (0.0-0.06); Absolute Basophil Count 0.04 10^3/uL (0.0-0.2); Absolute Lymphocyte Count 1.08 10^3/uL (1.2-3.4); Absolute Monocyte Count 0.57 10^3/uL (0.1-0.8); Basophils % 0.7; Eosinophils % 5.3; HGB 13.3 g/dL (13.5-17.5); Immature Grans % 0.4; Lymphocytes % 18.9; MCH 32.2 pg (27.0-33.0); MCHC 32.4 % (32.0-36.0); MCV 99.3 fL (80-95); MPV 9.6 fL (8.0-11.0); Neutrophils % 64.7; Nucleated RBC 0 %; Platelet Count 207 10^3/uL (130-400); RBC 4.13 10^6/uL (4.36-5.78); RDW 13.6 % (11.8-14.1); WBC 5.71 10^3/uL (4.4-10.8)
[2020-01-02 08:17] LABS: ALT 28 U/L (16-63); AST 22 U/L (15-37); Albumin 3.4 g/dL (3.4-5.0); Alkaline Phosphatase 88 U/L (46-116); Anion Gap 7.6 mmol/L (3-11); BUN 10 mg/dL (7-18); Bilirubin, Total 0.6 mg/dL (0.2-1.0); CO2 29.4 mmol/L (21.0-32.0); CREATININE 0.98 mg/dL (0.70-1.30); Calcium 8.9 mg/dL (8.5-10.1); Chloride 105 mmol/L (98-107); Glucose 85 mg/dL (74-106); Potassium 3.8 mmol/L (3.5-5.1); Sodium 142 mmol/L (136-145); Total Protein 7.1 g/dL (6.4-8.2)
[2020-01-02 22:11] LABS: CEA 7.2 ng/mL (See Note)
== END 2020-01-07 23:59 | disposition home or self-care (01) ==
LOC: INF 04:31
PROVIDERS: PCP Internal Medicine; Visit Provider Internal Medicine Hematology & Oncology
DX: C78.7 Secondary malignant neoplasm of liver and intrahepatic bile duct (principal); C20 Malignant neoplasm of rectum; Z45.2 Encounter for adjustment and management of vascular access device
CPT/HCPCS: 36591; 80053; 82378; 85025

== ENCOUNTER 2020-01-23 05:05 | Outpatient (RCR) | payer BC, SELFPAY ==
[2020-01-09 07:51] LABS: Abs Immature Grans 0.03 10^3/uL (0.0-0.06); Absolute Basophil Count 0.02 10^3/uL (0.0-0.2); Absolute Lymphocyte Count 0.95 10^3/uL (1.2-3.4); Absolute Monocyte Count 0.47 10^3/uL (0.1-0.8); Absolute Neutrophil Count 4.04 10^3/uL (1.2-6.7); Basophils % 0.3; Eosinophils % 5.2; HCT 41.9 % (40.0-50.0); HGB 13.5 g/dL (13.5-17.5); Immature Grans % 0.5; Lymphocytes % 16.4; MCH 32.5 pg (27.0-33.0); MCHC 32.2 % (32.0-36.0); MCV 100.7 fL (80-95); MPV 9.4 fL (8.0-11.0); Monocytes % 8.1; Neutrophils % 69.5; Nucleated RBC 0 %; Platelet Count 224 10^3/uL (130-400); RBC 4.16 10^6/uL (4.36-5.78); RDW-SD 50.9 fL; WBC 5.81 10^3/uL (4.4-10.8)
[2020-01-09] MEDS: Normal Saline Flush 10 ML SYR IVP (07:56)
[2020-01-09] MEDS: Heparin 500 UNITS/5 ML SYRINGE IV (07:57)
[2020-01-09 08:06] LABS: ALT 33 U/L (16-63); AST 24 U/L (15-37); Albumin 3.3 g/dL (3.4-5.0); Alkaline Phosphatase 91 U/L (46-116); Anion Gap 6.4 mmol/L (3-11); BUN 9 mg/dL (7-18); Bilirubin, Total 0.6 mg/dL (0.2-1.0); CO2 30.6 mmol/L (21.0-32.0); CREATININE 0.94 mg/dL (0.70-1.30); Calcium 8.9 mg/dL (8.5-10.1); Chloride 103 mmol/L (98-107); Glucose 116 mg/dL (74-106); Sodium 140 mmol/L (136-145); Total Protein 7.1 g/dL (6.4-8.2)
[2020-01-16] MEDS: Normal Saline Flush 10 ML SYR IVP (07:25)
[2020-01-16] MEDS: Heparin 500 UNITS/5 ML SYRINGE IV (07:25)
[2020-01-16 07:53] LABS: Abs Immature Grans 0.03 10^3/uL (0.0-0.06); Absolute Basophil Count 0.02 10^3/uL (0.0-0.2); Absolute Eosinophil Count 0.28 10^3/uL (0.0-0.7); Absolute Lymphocyte Count 0.78 10^3/uL (1.2-3.4); Absolute Monocyte Count 0.49 10^3/uL (0.1-0.8); Absolute Neutrophil Count 3.81 10^3/uL (1.2-6.7); Basophils % 0.4; Eosinophils % 5.2; HCT 42.3 % (40.0-50.0); HGB 13.6 g/dL (13.5-17.5); Immature Grans % 0.6; Lymphocytes % 14.4; MCH 32.7 pg (27.0-33.0); MCHC 32.2 % (32.0-36.0); MCV 101.7 fL (80-95); Monocytes % 9.1; Neutrophils % 70.3; Nucleated RBC 0 %; Platelet Count 203 10^3/uL (130-400); RBC 4.16 10^6/uL (4.36-5.78); RDW 14.7 % (11.8-14.1); RDW-SD 54.5 fL; WBC 5.41 10^3/uL (4.4-10.8)
[2020-01-16 08:09] LABS: ALT 29 U/L (16-63); AST 19 U/L (15-37); Albumin 3.4 g/dL (3.4-5.0); Alkaline Phosphatase 94 U/L (46-116); Anion Gap 8.7 mmol/L (3-11); BUN 8 mg/dL (7-18); Bilirubin, Total 0.6 mg/dL (0.2-1.0); CO2 29.3 mmol/L (21.0-32.0); Calcium 8.9 mg/dL (8.5-10.1); Chloride 104 mmol/L (98-107); Glucose 104 mg/dL (74-106); Potassium 3.9 mmol/L (3.5-5.1); Sodium 142 mmol/L (136-145); Total Protein 7.1 g/dL (6.4-8.2)
[2020-01-16 18:46] LABS: CEA 7.3 ng/mL (See Note)
[2020-01-23 07:50] LABS: Abs Immature Grans 0.02 10^3/uL (0.0-0.06); Absolute Basophil Count 0.02 10^3/uL (0.0-0.2); Absolute Eosinophil Count 0.23 10^3/uL (0.0-0.7); Absolute Lymphocyte Count 0.86 10^3/uL (1.2-3.4); Absolute Monocyte Count 0.43 10^3/uL (0.1-0.8); Absolute Neutrophil Count 3.37 10^3/uL (1.2-6.7); Basophils % 0.4; Eosinophils % 4.7; HCT 43.5 % (40.0-50.0); HGB 13.9 g/dL (13.5-17.5); Immature Grans % 0.4; Lymphocytes % 17.4; MCH 32.6 pg (27.0-33.0); MCV 102.1 fL (80-95); MPV 8.9 fL (8.0-11.0); Monocytes % 8.7; Neutrophils % 68.4; Nucleated RBC 0 %; Platelet Count 205 10^3/uL (130-400); RBC 4.26 10^6/uL (4.36-5.78); RDW 14.9 % (11.8-14.1); RDW-SD 55.1 fL; WBC 4.93 10^3/uL (4.4-10.8)
[2020-01-23] MEDS: Normal Saline Flush 10 ML SYR IVP (08:03)
[2020-01-23] MEDS: Heparin 500 UNITS/5 ML SYRINGE IV (08:04)
[2020-01-23 08:18] LABS: ALT 25 U/L (16-63); AST 21 U/L (15-37); Albumin 3.5 g/dL (3.4-5.0); Alkaline Phosphatase 90 U/L (46-116); Anion Gap 6.3 mmol/L (3-11); BUN 9 mg/dL (7-18); Bilirubin, Total 0.5 mg/dL (0.2-1.0); CO2 30.7 mmol/L (21.0-32.0); CREATININE 0.96 mg/dL (0.70-1.30); Chloride 104 mmol/L (98-107); Glucose 111 mg/dL (74-106); Potassium 4.1 mmol/L (3.5-5.1); Sodium 141 mmol/L (136-145); Total Protein 7.4 g/dL (6.4-8.2)
== END 2020-02-07 23:59 | disposition home or self-care (01) ==
LOC: INF 05:05
PROVIDERS: PCP Internal Medicine; Visit Provider Internal Medicine Hematology & Oncology
DX: Z45.2 Encounter for adjustment and management of vascular access device (principal); C20 Malignant neoplasm of rectum; C78.7 Secondary malignant neoplasm of liver and intrahepatic bile duct
CPT/HCPCS: 36591; 80053; 82378; 85025

== ENCOUNTER 2020-02-13 01:54 | Outpatient (CLI) | payer BC, SELFPAY ==
[2020-02-17 19:04] LABS: Patient Race White; SARS-CoV-2 RNA Undetected (Undetected); SARS-CoV-2 Specimen Source Nasal
== END 2020-02-13 02:14 ==
PROVIDERS: PCP Internal Medicine; Visit Provider Internal Medicine Hematology & Oncology
DX: Z03.818 Encounter for observation for suspected exposure to other biological agents ruled out (principal)
CPT/HCPCS: U0003

== ENCOUNTER 2020-02-20 03:13 | Outpatient (CLI) | payer BC, SELFPAY ==
--- NOTE | 2020-02-20 | DI.CT_ITS ---
EXAM: CT CHEST/ABD/PEL W CLINICAL HISTORY: NEW BASELINE,S/P CHEMO AND RADIATION,H/O METASTATIC CA TO PELVIS AND LUNGS TECHNIQUE: Imaging Protocol: Axial computed tomography images with coronal and sagittal reformatted images were created and reviewed CONTRAST MATERIAL: Intravenous: Omnipaque 350 Contrast volume:100 mL Oral: Yes COMPARISON: CT CT CHEST/ABD/PEL W from 10/28/2019 FINDINGS: CHEST: Tracheobronchial tree: Patent where visualized. Mediastinum and Christine: The subcarinal mass measures 4.6 x 4 cm compared with 4.5 x 3.7 cm. Pulmonary parenchyma: There has been interval increase in size of multiple pulmonary nodules. A nodul e in the posterior aspect of the left lower lobe measures 1.5 cm (series 12, image 306) compared with 1.0 cm on the prior examination. There is a nodule in the right upper lobe which measures 1.2 cm (se tyesha 12, image 162) compared with 0.8 cm on the prior examination. The largest nodule is in the right lower lobe anteriorly and measures 2 cm (series 12, image 484) compared with 1.5 cm on the prior exa mination. No architectural distortion. Pleura: No effusion or pneumothorax. Heart: The heart is not dilated. Moderate coronary artery calcification. No significant pericardial e ffusion. Aorta: Thoracic aorta non-dilated. Lymph nodes: Please see the above section on the mediastinum and christine. Bones:Normal. Tubes, Catheters, and Lines: There is a right [id number] catheter with its tip in the superior sue a cava. Soft tissues: Unremarkable. ABDOMEN: Liver: Normal density. Since the prior examination there have developed several hypodense masses in t he liver ranging up to 1.5 cm. The findings are suspicious for metastatic disease. Portal, Superior Mesenteric, and Splenic Veins: Unremarkable. Gallbladder and Biliary Tract: No radiodense calculus or dilation. Pancreas: Normal density, no abnormal calcifications or inflammatory process. Spleen: Normal. Adrenals: No masses seen. Kidneys: Normal size, contour and axis. Nonobstructing 7 mm stone is seen in the left kidney. Stable cyst in the left kidney. Abdominal Aorta: Abdominal portion non-dilated. Mild atherosclerosis. Bowel: No obstruction or bowel wall thickening. Appendix is unremarkable. Peritoneal Cavity: No ascites, collection or mesenteric inflammatory response. Lymph Nodes: Within normal limits. Bones: Unremarkable. Soft Tissues: There has been no change in size of the mass in the left pelvic sidewall or involvement in the adjacent left hemipelvis or seminal vesicle. PELVIS: Bladder: Symmetric distention, no gross wall thickening. Reproductive Organs: Please see the soft tissue section above. Lymph Nodes: Within normal limits. Bones: Degenerative changes. Please see the soft tissue section above. IMPRESSION: 1. Interval development of several hypodense masses in the liver suspicious for metastatic disease. 2. Stable left pelvic sidewall mass and its involvement in the adjacent structures. 3. Interval increase in size of the pulmonary metastases. RADIATION DOSE DELIVERED: 2,121.92mGy.cm Total DLP DATA REPOSITORY: All CT scans at this facility are submitted to the National Radiology Data Registry (NRDR) Dose Index Registry (DIR) with the [employer] (ACR). RADIATION OPTIMIZATION: All CT scans at this facility use at least one of these dose optimization te chniques: automated exposure control; mA and/or kV adjustment per patient size (includes targeted exa ms where dose is matched to clinical indication); or iterative reconstruction.
[2020-02-20] MEDS: Omnipaque 350 MG/ML 50 ML BTL IJ (07:35)
[2020-02-20] MEDS: Breeza Beverage 473 ML BTL PO ×2 (07:36→07:37)
[2020-02-20] MEDS: Omnipaque 350 MG/ML 100 ML BTL IJ (08:14)
[2020-02-20] MEDS: Normal Saline - Diluent 50 ML VIAL IV (08:14)
[2020-02-20] MEDS: Normal Saline Flush 10 ML SYR IVP (08:16)
== END 2020-02-20 03:33 ==
PROVIDERS: PCP Internal Medicine; Visit Provider Internal Medicine Hematology & Oncology
DX: C78.01 Secondary malignant neoplasm of right lung (principal); C78.02 Secondary malignant neoplasm of left lung; C79.89 Secondary malignant neoplasm of other specified sites; N20.0 Calculus of kidney
CPT/HCPCS: 74177; 71260; J3490; Q9967

== ENCOUNTER 2020-03-05 05:33 | Outpatient (RCR) | payer BC, SELFPAY ==
[2020-02-20 07:21] LABS: Abs Immature Grans 0.03 10^3/uL (0.0-0.06); Absolute Basophil Count 0.04 10^3/uL (0.0-0.2); Absolute Eosinophil Count 0.19 10^3/uL (0.0-0.7); Absolute Lymphocyte Count 1.09 10^3/uL (1.2-3.4); Absolute Monocyte Count 0.47 10^3/uL (0.1-0.8); Basophils % 0.8; Eosinophils % 3.9; HCT 44.6 % (40.0-50.0); HGB 14.6 g/dL (13.5-17.5); Immature Grans % 0.6; Lymphocytes % 22.2; MCH 33.3 pg (27.0-33.0); MCHC 32.7 % (32.0-36.0); MCV 101.6 fL (80-95); MPV 9.1 fL (8.0-11.0); Monocytes % 9.6; Neutrophils % 62.9; Nucleated RBC 0 %; Platelet Count 205 10^3/uL (130-400); RBC 4.39 10^6/uL (4.36-5.78); RDW 14.1 % (11.8-14.1); RDW-SD 53.5 fL; WBC 4.92 10^3/uL (4.4-10.8)
[2020-02-20 07:33] LABS: ALT 37 U/L (16-63); AST 37 U/L (15-37); Albumin 3.6 g/dL (3.4-5.0); Alkaline Phosphatase 118 U/L (46-116); BUN 8 mg/dL (7-18); Bilirubin, Total 0.5 mg/dL (0.2-1.0); CREATININE 0.97 mg/dL (0.70-1.30); Calcium 8.7 mg/dL (8.5-10.1); Chloride 103 mmol/L (98-107); Glucose 98 mg/dL (74-106); Potassium 4.2 mmol/L (3.5-5.1); Sodium 140 mmol/L (136-145); Total Protein 7.6 g/dL (6.4-8.2)
[2020-02-20] MEDS: Normal Saline Flush 10 ML SYR IVP (07:40)
[2020-02-20] MEDS: Heparin 500 UNITS/5 ML SYRINGE IVP (07:41)
[2020-02-23 16:56] LABS: CEA 10.2 ng/ml
[2020-03-05] MEDS: Heparin 500 UNITS/5 ML SYRINGE IVP (07:44)
[2020-03-05] MEDS: Normal Saline Flush 10 ML SYR IVP (07:44)
[2020-03-05 07:49] LABS: Abs Immature Grans 0.05 10^3/uL (0.0-0.06); Absolute Basophil Count 0.02 10^3/uL (0.0-0.2); Absolute Eosinophil Count 0.14 10^3/uL (0.0-0.7); Absolute Lymphocyte Count 0.75 10^3/uL (1.2-3.4); Absolute Monocyte Count 0.65 10^3/uL (0.1-0.8); Absolute Neutrophil Count 5.83 10^3/uL (1.2-6.7); Basophils % 0.3; Eosinophils % 1.9; HCT 42.2 % (40.0-50.0); Immature Grans % 0.7; Lymphocytes % 10.1; MCH 33.3 pg (27.0-33.0); MCHC 33.2 % (32.0-36.0); MCV 100.5 fL (80-95); MPV 9.4 fL (8.0-11.0); Monocytes % 8.7; Neutrophils % 78.3; Nucleated RBC 0 %; Platelet Count 166 10^3/uL (130-400); RDW-SD 51.8 fL; WBC 7.44 10^3/uL (4.4-10.8)
[2020-03-05 08:02] LABS: ALT 69 U/L (16-63); AST 43 U/L (15-37); Albumin 3.4 g/dL (3.4-5.0); Alkaline Phosphatase 149 U/L (46-116); Anion Gap 3.4 mmol/L (3-11); BUN 7 mg/dL (7-18); Bilirubin, Total 0.6 mg/dL (0.2-1.0); CO2 29.6 mmol/L (21.0-32.0); CREATININE 0.95 mg/dL (0.70-1.30); Calcium 8.9 mg/dL (8.5-10.1); Chloride 102 mmol/L (98-107); Glucose 156 mg/dL (74-106); Potassium 3.9 mmol/L (3.5-5.1); Sodium 135 mmol/L (136-145); Total Protein 7.6 g/dL (6.4-8.2)
[2020-03-05 18:32] LABS: CEA 6.7 ng/mL (See Note)
== END 2020-03-08 23:59 | disposition home or self-care (01) ==
LOC: INF 05:33
PROVIDERS: PCP Internal Medicine; Visit Provider Internal Medicine Hematology & Oncology
DX: C20 Malignant neoplasm of rectum (principal); C78.7 Secondary malignant neoplasm of liver and intrahepatic bile duct; Z45.2 Encounter for adjustment and management of vascular access device
CPT/HCPCS: 36591; 80053; 82378; 85025

== ENCOUNTER 2020-03-19 03:21 | Outpatient (RCR) | payer BC, SELFPAY ==
[2020-03-19] MEDS: Heparin 500 UNITS/5 ML SYRINGE IV (09:16)
[2020-03-19] MEDS: Normal Saline Flush 10 ML SYR IVP (09:16)
[2020-03-19 09:30] LABS: Absolute Basophil Count 0.04 10^3/uL (0.0-0.2); Absolute Eosinophil Count 0.15 10^3/uL (0.0-0.7); Absolute Lymphocyte Count 1.26 10^3/uL (1.2-3.4); Absolute Monocyte Count 0.58 10^3/uL (0.1-0.8); Absolute Neutrophil Count 5.32 10^3/uL (1.2-6.7); Basophils % 0.5; HCT 41.4 % (40.0-50.0); HGB 13.4 g/dL (13.5-17.5); Immature Grans % 1.3; Lymphocytes % 16.9; MCH 31.6 pg (27.0-33.0); MCHC 32.4 % (32.0-36.0); MCV 97.6 fL (80-95); MPV 9.4 fL (8.0-11.0); Monocytes % 7.8; Neutrophils % 71.5; Nucleated RBC 0 %; Platelet Count 195 10^3/uL (130-400); RBC 4.24 10^6/uL (4.36-5.78); RDW 13.6 % (11.8-14.1); RDW-SD 48.4 fL; WBC 7.45 10^3/uL (4.4-10.8)
[2020-03-19 12:03] LABS: ALT 31 U/L (16-63); AST 21 U/L (15-37); Albumin 3.2 g/dL (3.4-5.0); Alkaline Phosphatase 153 U/L (46-116); Anion Gap 6.5 mmol/L (3-11); BUN 7 mg/dL (7-18); Bilirubin, Total 0.3 mg/dL (0.2-1.0); CO2 29.5 mmol/L (21.0-32.0); CREATININE 1.04 mg/dL (0.70-1.30); Calcium 8.8 mg/dL (8.5-10.1); Chloride 102 mmol/L (98-107); Glucose 120 mg/dL (74-106); Potassium 3.5 mmol/L (3.5-5.1); Sodium 138 mmol/L (136-145); Total Protein 7.1 g/dL (6.4-8.2)
[2020-03-19 19:21] LABS: CEA 4.6 ng/mL (See Note)
== END 2020-04-08 23:59 | disposition home or self-care (01) ==
LOC: INF 03:21
PROVIDERS: PCP Internal Medicine; Visit Provider Internal Medicine Hematology & Oncology
DX: C20 Malignant neoplasm of rectum (principal); Z45.2 Encounter for adjustment and management of vascular access device; C78.7 Secondary malignant neoplasm of liver and intrahepatic bile duct
CPT/HCPCS: 36591; 80053; 82378; 85025

== ENCOUNTER 2020-07-08 02:04 | Outpatient (CLI) | payer BC, SELFPAY ==
[2020-07-08] MEDS: Omnipaque 350 MG/ML 50 ML BTL PO (09:13)
[2020-07-08] MEDS: Breeza Beverage 473 ML BTL PO ×2 (09:13→09:14)
--- NOTE | 2020-07-08 10:56 | DI.CT_ITS ---
EXAM: CT CHEST/ABD/PEL W CLINICAL HISTORY: METASTASIS FROM RECTAL CA,C79.9,C20,ASSESS TREATMENT RESPONSE. TECHNIQUE: Imaging Protocol: Axial computed tomography images with coronal and sagittal reformatted images were created and reviewed CONTRAST MATERIAL: Intravenous: Omnipaque 350 Contrast volume:100 ml Oral: None COMPARISON: CT CT CHEST/ABD/PEL W from 02/20/2020 FINDINGS: CHEST: LUNGS: Again noted are multiple bilateral metastatic lung nodules throughout both lung darling. These are relatively stable in size and number with very slight increase in size of a few of these multipl e nodules. There are no new nodules. No pleural effusions. No new findings in the trachea and main stem bronchi MEDIASTINUM: The large subcarinal mass appears unchanged. Hilar regions appear unchanged.No axillary adenopathy. Visualized thyroid unremarkable. CARDIAC: Heart size is normal. There is no pericardial effusion.Caliber of the thoracic aorta is wit hin normal limits. OSSEOUS: No significant osseous lesions.. ABDOMEN: There is no ascites. LIVER: Increasing size and number of metastatic lesions when compared to the prior study. These are in the right hepatic lobe. The largest lesion is adjacent to the gallbladder fossa and measures appr oximately 2 by 2 centimetres. GALLBLADDER/BILIARY: No obvious gallbladder pathology. CBD is not dilated. PANCREAS: No evidence of pancreatic mass nor dilatation of the pancreatic duct. SPLEEN: Spleen is not enlarged. There are no intrasplenic lesions. Splenic and portal veins are tran nt. ADRENALS: There are no significant adrenal masses. KIDNEYS: 2 adjacent nonobstructive calculi are again noted in the upper pole of the left kidney. The re are no calculi in the right kidney. Tiny bilateral cortical cysts are again noted in the kidneys. No solid renal masses. However, there appears to be mild hydronephrosis and hydroureter of the lef t kidney which was not evident previously.. . There is some urinary bladder wall thickening which m ay be responsible for this. There are no calculi in the lower ureter. ABDOMINAL AORTA: Abdominal aorta is not enlarged. LYMPH NODES: There is no retroperitoneal nor paraaortic adenopathy. ABDOMINAL WALL/GI: No evidence of significant anterior abdominal wall hernia. No bowel obstruction. PELVIS: LYMPH NODES: There is no intrapelvic nor inguinal adenopathy. GI: No evidence of appendicitis.Sigmoid diverticuli. No evidence of acute diverticulitis.However, th ere is thickening of the rectal wall noted. URINARY BLADDER: Diffuse bladder wall thickening now evident. No layering clot. No radiopaque calcu li seen in the urinary bladder REPRODUCTIVE: Prostate not enlarged. OSSEOUS: No significant osseous lesions. IMPRESSION: 1. Compared to the CT scan of February 2020 there has been further deterioration. There is increasin g size and number of metastatic lesions in the liver. 2. Very numerous bilateral metastatic lung nodules appear relatively stable with only minimal increas e in size of a few of the nodules. There are no new additional nodules and there are no pleural effu sions. 3. Large subcarinal mass is again noted, probably adenopathy. 4. There is now mild left-sided hydronephrosis and dilatation of the entire length of the left urete r, not previously present. There is no radiopaque calculus in the lower left ureter seen (there are 2 nonobstructive calculi in the upper pole of the left kidney). Some thickening of the bladder wall is noted, possibly etiologic. RADIATION DOSE DELIVERED: 1,742.41mGy.cm Total DLP DATA REPOSITORY: All CT scans at this facility are submitted to the National Radiology Data Registry (NRDR) Dose Index Registry (DIR) with the [employer] (ACR). RADIATION OPTIMIZATION: All CT scans at this facility use at least one of these dose optimization te chniques: automated exposure control; mA and/or kV adjustment per patient size (includes targeted exa ms where dose is matched to clinical indication); or iterative reconstruction.
[2020-07-08] MEDS: Normal Saline - Diluent 50 ML VIAL IV (11:10)
[2020-07-08] MEDS: Omnipaque 350 MG/ML 100 ML BTL IJ (11:11)
[2020-07-08] MEDS: Normal Saline Flush 10 ML SYR IVP (11:14)
== END 2020-07-08 02:24 ==
PROVIDERS: PCP Internal Medicine; Visit Provider Internal Medicine Hematology & Oncology
DX: C78.01 Secondary malignant neoplasm of right lung (principal); C20 Malignant neoplasm of rectum; C78.02 Secondary malignant neoplasm of left lung; C78.7 Secondary malignant neoplasm of liver and intrahepatic bile duct; N13.2 Hydronephrosis with renal and ureteral calculous obstruction
CPT/HCPCS: 74177; 71260; J3490; Q9967

== ENCOUNTER 2020-08-06 11:00 | Outpatient (RCR) | payer BC, SELFPAY ==
[2020-07-08 10:07] LABS: Abs Immature Grans 0.04 10^3/uL (0.0-0.06); Absolute Basophil Count 0.04 10^3/uL (0.0-0.2); Absolute Lymphocyte Count 1.18 10^3/uL (1.2-3.4); Absolute Monocyte Count 1.23 10^3/uL (0.1-0.8); Absolute Neutrophil Count 6.96 10^3/uL (1.2-6.7); Basophils % 0.4; Eosinophils % 2.1; HCT 30.8 % (40.0-50.0); HGB 9.5 g/dL (13.5-17.5); Immature Grans % 0.4; Lymphocytes % 12.2; MCH 28.4 pg (27.0-33.0); MCHC 30.8 % (32.0-36.0); MCV 91.9 fL (80-95); MPV 8.5 fL (8.0-11.0); Monocytes % 12.7; Neutrophils % 72.2; Nucleated RBC 0 %; Platelet Count 374 10^3/uL (130-400); RBC 3.35 10^6/uL (4.36-5.78); RDW 14.3 % (11.8-14.1); RDW-SD 48.6 fL; WBC 9.65 10^3/uL (4.4-10.8)
[2020-07-08 10:19] LABS: ALT 18 U/L (16-63); AST 16 U/L (15-37); Albumin 2.3 g/dL (3.4-5.0); Alkaline Phosphatase 130 U/L (46-116); Anion Gap 6.9 mmol/L (3-11); BUN 7 mg/dL (7-18); Bilirubin, Total 0.4 mg/dL (0.2-1.0); CO2 32.1 mmol/L (21.0-32.0); CREATININE 0.9 mg/dL (0.70-1.30); Chloride 97 mmol/L (98-107); Glucose 118 mg/dL (74-106); Potassium 3.5 mmol/L (3.5-5.1); Sodium 136 mmol/L (136-145)
[2020-07-08] MEDS: Normal Saline Flush 10 ML SYR IVP (10:49)
[2020-07-08] MEDS: Heparin 500 UNITS/5 ML SYRINGE IV (10:49)
[2020-07-08 17:43] LABS: CEA 5.9 ng/mL (See Note)
[2020-07-09 13:35] LABS: Iron 24 ug/dL (65-175); Total Iron Binding Capacity 163 ug/dL (250-450); Transferrin Sat 15 % (20-55)
[2020-07-09 13:48] LABS: Ferritin 576 ng/mL (26-388)
[2020-08-06] MEDS: Normal Saline Flush 10 ML SYR IVP (11:52)
[2020-08-06] MEDS: Heparin 500 UNITS/5 ML SYRINGE IV (11:52)
[2020-08-06 12:07] LABS: Abs Immature Grans 0.04 10^3/uL (0.0-0.06); Absolute Basophil Count 0.06 10^3/uL (0.0-0.2); Absolute Eosinophil Count 0.34 10^3/uL (0.0-0.7); Absolute Lymphocyte Count 1.06 10^3/uL (1.2-3.4); Absolute Monocyte Count 0.54 10^3/uL (0.1-0.8); Absolute Neutrophil Count 5.49 10^3/uL (1.2-6.7); Basophils % 0.8; Eosinophils % 4.5; HGB 9.2 g/dL (13.5-17.5); Immature Grans % 0.5; Lymphocytes % 14.1; MCH 27.2 pg (27.0-33.0); MCHC 29.7 % (32.0-36.0); MCV 91.7 fL (80-95); MPV 8.8 fL (8.0-11.0); Monocytes % 7.2; Neutrophils % 72.9; Nucleated RBC 0 %; Platelet Count 378 10^3/uL (130-400); RBC 3.38 10^6/uL (4.36-5.78); RDW 15.8 % (11.8-14.1); RDW-SD 52.7 fL; WBC 7.53 10^3/uL (4.4-10.8)
[2020-08-06 12:25] LABS: ALT 17 U/L (16-63); AST 19 U/L (15-37); Albumin 2.7 g/dL (3.4-5.0); Alkaline Phosphatase 149 U/L (46-116); Anion Gap 8.3 mmol/L (3-11); BUN 10 mg/dL (7-18); Bilirubin, Total 0.2 mg/dL (0.2-1.0); CO2 28.7 mmol/L (21.0-32.0); CREATININE 0.9 mg/dL (0.70-1.30); Chloride 103 mmol/L (98-107); Glucose 101 mg/dL (74-106); Potassium 4.1 mmol/L (3.5-5.1); Sodium 140 mmol/L (136-145); TSH 2.48 uIU/mL (0.36-3.74)
[2020-08-06 17:05] LABS: CEA 22.2 ng/mL (See Note)
== END 2020-08-06 23:59 | disposition home or self-care (01) ==
LOC: INF 11:00
PROVIDERS: PCP Internal Medicine; Visit Provider Internal Medicine Hematology & Oncology
DX: C20 Malignant neoplasm of rectum (principal); C78.7 Secondary malignant neoplasm of liver and intrahepatic bile duct; Z45.2 Encounter for adjustment and management of vascular access device
CPT/HCPCS: 36591; 80053; 82378; 82728; 83540; 83550; 84439; 84443; 85025

== ENCOUNTER 2020-08-22 16:25 | Emergency (ER) | payer BC, SELFPAY ==
[2020-08-22] VITALS (29 sets, daily range): BP systolic 117–138; BP diastolic 65–94; PULSE 58–92; RESP 6–22; O2SAT 96–100
--- NOTE | 2020-08-22 16:45 | DI.CT_ITS ---
Exam(s) CT HEAD WO EXAM: CT HEAD WO CLINICAL HISTORY: vomiting, stage 4 rectal ca. TECHNIQUE: Imaging Protocol: Axial computed tomography images with coronal and sagittal reformatted images were created and reviewed COMPARISON: No exams were available for comparison FINDINGS: There are no skull fractures nor fluid in the visualized paranasal sinuses. There are multiple metastatic appearing lesions in the brain with abundant surrounding. These are al l hyperdense lesions and are located in the right occipital lobe, right frontal lobe and left frontal . The abundant edema exhibits mass effect and there is approximately 4 millimeters left shift of mid line structures. Appears to be sparing of the cerebellar hemispheres. IMPRESSION: Multiple hyperdense metastatic appearing lesions in the brain with abundant surrounding edema approxi mately 4 millimeters left shift of midline structures. RADIATION DOSE DELIVERED: 729.71mGy.cm Total DLP DATA REPOSITORY: All CT scans at this facility are submitted to the National Radiology Data Registry (NRDR) Dose Index Registry (DIR) with the [employer] (ACR). RADIATION OPTIMIZATION: All CT scans at this facility use at least one of these dose optimization te chniques: automated exposure control; mA and/or kV adjustment per patient size (includes targeted exa ms where dose is matched to clinical indication); or iterative reconstruction.
--- NOTE | 2020-08-22 16:45 | RT.EKG_ITS ---
APPROVED REPORT Exam: Resting ECG Reason for Exam: vomiting Patient Location: E HR:66 bpm ECG Measurements Heart Rate 66 AXIS MS 135 P 50 QRSd 85 QRS 7 QT 394 T 12 QTc 413 Conclusion Sinus rhythm...normal P axis, V-rate 60- 99
--- NOTE | 2020-08-22 16:45 | DI.CT_ITS ---
Exam(s) CT CHEST/ABD/PEL W EXAM: CT CHEST/ABD/PEL W CLINICAL HISTORY: vomiting, stage 4 rectal ca. TECHNIQUE: Imaging Protocol: Axial computed tomography images with coronal and sagittal reformatted images were created and reviewed CONTRAST MATERIAL: Intravenous: Omnipaque 350 Contrast volume:100 ml Oral: None COMPARISON: CT CT CHEST/ABD/PEL W from 07/08/2020 FINDINGS: CHEST: LUNGS: Again noted are multiple metastatic lesions in both lung darling without improvement. Appears relatively stable. No associated pleural effusions on either side. No new confluent infiltrates nor pleural effusions. No focal new findings in the trachea and mainstem bronchi.. MEDIASTINUM: Hilar and extensive mediastinal adenopathy including subcarinal adenopathy is again note d, appearing similar to previous. There is no new axillary nor supraclavicular adenopathy. Distal t ip of the right-sided Port-A-Cath is in the SVC. CARDIAC: Heart size is normal. There is no pericardial effusion.Mild coronary artery calcification i n the LAD noted. Caliber thoracic aorta is within normal limits. OSSEOUS: No significant osseous lesions.. ABDOMEN: There is no ascites. LIVER: Relatively stable appearance of the multiple metastatic lesions in the liver. Stable in size and number. GALLBLADDER/BILIARY: No obvious gallbladder pathology. CBD is not dilated. PANCREAS: No evidence of pancreatic mass nor dilatation of the pancreatic duct. SPLEEN: Spleen size upper normal. Somewhat heterogeneous enhancement pattern but no discernible foca l lesions splenic and portal veins are patent. ADRENALS: There are no significant adrenal masses. KIDNEYS: Upper pole calculus in the left kidney again noted.. 5 millimeter benign cyst in the anteri or cortex of left kidney noted. No solid renal masses. No hydronephrosis nor hydroureter. No calcu li seen in the urinary bladder. However, there is bladder wall thickening inferiorly and this should be studied with cystoscopy and possible biopsy ABDOMINAL AORTA: Abdominal aorta is not enlarged. LYMPH NODES: There is no retroperitoneal nor paraaortic adenopathy. ABDOMINAL WALL: No evidence of significant anterior abdominal wall hernia. GI: Increased density around the rectum-presacral region which is either due to spreading disease, ra diation treatment sequelae, or a combination thereof. This exhibits minimal change from the previous study and PELVIS: LYMPH NODES: There is no intrapelvic nor inguinal adenopathy. GI: No evidence of appendicitis.No evidence of sigmoid diverticulitis. URINARY BLADDER: Wall thickening, possibly neoplasm REPRODUCTIVE: Unremarkable. OSSEOUS: No significant osseous lesions. IMPRESSION: 1. Known rectal malignancy with relatively stable metastatic disease in the liver and multiple nodule s in both lung darling which appear relatively stable. Also stability of the hilar and mediastinal ad enopathy. 2. Nonobstructive upper pole calculus in the left kidney is again noted. 3. Increased wall density in the urinary bladder which may be metastatic. Recommend cystoscopy. 4. Perirectal and presacral increased density which is either related to disease, radiation therapy, or a combination thereof. RADIATION DOSE DELIVERED: 1,563.95mGy.cm Total DLP DATA REPOSITORY: All CT scans at this facility are submitted to the National Radiology Data Registry (NRDR) Dose Index Registry (DIR) with the [employer] (ACR). RADIATION OPTIMIZATION: All CT scans at this facility use at least one of these dose optimization te chniques: automated exposure control; mA and/or kV adjustment per patient size (includes targeted exa ms where dose is matched to clinical indication); or iterative reconstruction.
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
[2020-08-22] MEDS: Normal Saline-STERILE FIELD 0.9% 10 ML SYR (17:30)
[2020-08-22] MEDS: Normal Saline 1,000 ML 1000 ML IV (17:30)
[2020-08-22 17:33] LABS: Abs Immature Grans 0.04 10^3/uL (0.0-0.06); Absolute Basophil Count 0.03 10^3/uL (0.0-0.2); Absolute Eosinophil Count 0.04 10^3/uL (0.0-0.7); Absolute Lymphocyte Count 0.42 10^3/uL (1.2-3.4); Absolute Monocyte Count 0.41 10^3/uL (0.1-0.8); Absolute Neutrophil Count 7.06 10^3/uL (1.2-6.7); Basophils % 0.4; Eosinophils % 0.5; HCT 30.3 % (40.0-50.0); Immature Grans % 0.5; Lymphocytes % 5.3; MCH 26.9 pg (27.0-33.0); MCHC 29.7 % (32.0-36.0); MCV 90.4 fL (80-95); MPV 9.2 fL (8.0-11.0); Monocytes % 5.1; Neutrophils % 88.2; Nucleated RBC 0 %; Platelet Count 343 10^3/uL (130-400); RBC 3.35 10^6/uL (4.36-5.78); RDW 15.9 % (11.8-14.1); RDW-SD 52.1 fL
[2020-08-22 17:43] LABS: ALT 16 U/L (16-63); AST 16 U/L (15-37); Albumin 2.8 g/dL (3.4-5.0); Alkaline Phosphatase 134 U/L (46-116); Anion Gap 6.6 mmol/L (3-11); BUN 9 mg/dL (7-18); Bilirubin, Total 0.3 mg/dL (0.2-1.0); CO2 28.4 mmol/L (21.0-32.0); CREATININE 0.8 mg/dL (0.70-1.30); Calcium 8.9 mg/dL (8.5-10.1); Chloride 104 mmol/L (98-107); Glucose 140 mg/dL (74-106); Magnesium 1.7 mg/dL (1.8-2.4); Potassium 3.8 mmol/L (3.5-5.1); Sodium 139 mmol/L (136-145); Total Protein 7.9 g/dL (6.4-8.2)
[2020-08-22 17:45] LABS: Troponin I < 0.05 ng/mL (<0.06)
[2020-08-22] MEDS: Omnipaque 350 MG/ML 100 ML BTL IJ (18:27)
[2020-08-22] MEDS: Normal Saline Flush 10 ML SYR IVP (18:28)
--- NOTE | 2020-08-22 18:50 | DI.VRAD_ITS ---
PROCEDURE INFORMATION: Exam: CT Head Without Contrast Exam date and time: 08/22/2020 6:13 PM Age: 60 years old Clinical indication: Other: Nausea TECHNIQUE: Imaging protocol: Computed tomography of the head without contrast. COMPARISON: No relevant prior studies available. FINDINGS: Brain: There are several supratentorial masses in the brain, surrounded by intense edema. There is a 1.5 x1.4 cm hyperdense mass in the right frontal lobe (image 24 series 2). There is a 0.8 x 0.7 cm hypodense lesion in the left frontal lobe. There is a 2.0 x 2.2 cm hyperdense mass in the right lateral occipital lobe. There is mass effect due to intense surrounding edema with effacement of the subjacent sulci. There is intense edema noted in the right cerebral hemisphere involving the frontal, temporal, parietal lobes, insula, basal ganglia as well as the right occipital lobe. There is edema in the left frontal lobe. There is edema in the left occipital lobe without discernible mass, underlying small mass cannot be excluded.. Cerebral ventricles: There is effacement of the frontal , occipital and temporal horn as well as partial effacement of the body and atrium of the right lateral ventricle. There is partial effacement of the frontal horn of the left lateral ventricle. There is effacement of the right sylvian fissure. There is 4 mm leftward shift of the midline structures as well as mild medialization of the right uncus into right lateral suprasellar cistern. There is partial effacement of the right ambient cistern and right side of the perimedullary cistern. Bones/joints: No acute fracture. Paranasal sinuses: Visualized sinuses are unremarkable. No fluid levels. Mastoid air cells: Visualized mastoid air cells are well aerated. Soft tissues: Unremarkable. IMPRESSION: 1. Multiple supratentorial masses, 3 of them are identified in the right frontal, left frontal and right lateral occipital lobe. There is intense surrounding edema as described above. There is edema in the left occipital lobe without discernible mass, underlying smaller mass cannot be excluded. 2. There is mass effect with 4 mm leftward shift of the midline structures, as well as medialization of the right uncus. THIS REPORT CONTAINS FINDINGS THAT MAY BE CRITICAL TO PATIENT CARE. The findings were verbally communicated via telephone conference at 6:49 PM EDT on 08/22/2020 with MAYUR HOUGH. The findings were acknowledged and understood. Dictated and Authenticated by: Saleem Carr MD. Ordering:SAMI Cordova MD
--- NOTE | 2020-08-22 19:38 | DI.VRAD_ITS ---
PROCEDURE INFORMATION: Exam: CT Chest With Contrast; Diagnostic Exam date and time: 08/22/2020 6:02 PM Age: 60 years old Clinical indication: Abdominal pain; Other: None TECHNIQUE: Imaging protocol: Diagnostic computed tomography of the chest with contrast. 3D rendering (Not supervised by radiologist): MIP and/or 3D reconstructed images were created by the technologist. COMPARISON: CT CHEST/ABD/PEL W 07/08/2020 10:53 AM FINDINGS: Lungs: Numerous mildly spiculated pulmonary masses in all lobes, increased in size and number compared to the most recent exam. Pleural spaces: Unremarkable. No pneumothorax. No pleural effusion. Heart: Unremarkable. No cardiomegaly. No pericardial effusion. Aorta: Unremarkable. No aortic aneurysm. Lymph nodes: Prevascular, pretracheal, and subcarinal lymphadenopathy, as before. Bones/joints: Unremarkable. No acute fracture. Soft tissues: Unremarkable. IMPRESSION: 1. Worsening pulmonary metastatic disease. 2. Mediastinal lymphadenopathy. PROCEDURE INFORMATION: Exam: CT Abdomen And Pelvis With Contrast Exam date and time: 08/22/2020 6:02 PM Age: 60 years old Clinical indication: Abdominal pain; Other: None TECHNIQUE: Imaging protocol: Computed tomography of the abdomen and pelvis with contrast. COMPARISON: CT CHEST/ABD/PEL W 07/08/2020 10:53 AM FINDINGS: Liver: Multiple heterogeneous hypodense lesions throughout the liver, increased in size since the comparison exam. Gallbladder and bile ducts: Normal. No calcified stones. No ductal dilation. Pancreas: Normal. No ductal dilation. Spleen: Normal. No splenomegaly. Adrenal glands: Normal. No mass. Kidneys and ureters: Left renal upper pole nonobstructing calculus. Tiny left renal cortical cyst. Stomach and bowel: Rectal mucosal thickening and surrounding fat stranding with left lateral calcification. Left upper quadrant diverting colostomy. No bowel obstruction. Appendix: No evidence of appendicitis. Intraperitoneal space: Unremarkable. No free air. No significant fluid collection. Vasculature: Unremarkable. No abdominal aortic aneurysm. Lymph nodes: Unremarkable. No enlarged lymph nodes. Urinary bladder: Mural thickening of the urinary bladder, particularly posteriorly. This may be related to external beam radiation or local spread of malignancy. Reproductive: Unremarkable as visualized. Bones/joints: Unremarkable. No acute fracture. Soft tissues: Unremarkable. IMPRESSION: 1. Evidence of rectal cancer with worsening metastatic disease in the liver and lungs. 2. Possible local extension tumor to the urinary bladder wall, although thickening may be due to external beam radiation; correlate clinically. 3. No bowel obstruction. Dictated and Authenticated by: Rodrigo Barclay MD. Ordering:SAMI Cordova MD
[2020-08-22] MEDS: Dexamethasone 10 MG/ML VIAL IVP (19:50)
[2020-08-22] MEDS: Heparin 500 UNITS/5 ML SYRINGE (19:53)
--- NOTE | 2020-08-22 20:03 | NUR.NOTE ---
Nursing Note:Decadron Rx. called in to [facility] at patient request
[2020-08-23] VITALS (9 sets, daily range): BP systolic 105–119; BP diastolic 66–85; PULSE 49–79; O2SAT 100
== END 2020-08-22 20:15 | disposition left against medical advice (07) ==
PROVIDERS: Emergency Provider Emergency Medicine; PCP Internal Medicine
DX: C78.7 Secondary malignant neoplasm of liver and intrahepatic bile duct (principal); C78.00 Secondary malignant neoplasm of unspecified lung; R11.2 Nausea with vomiting, unspecified; R93.0 Abnormal findings on diagnostic imaging of skull and head, not elsewhere classified; R53.1 Weakness; Z45.2 Encounter for adjustment and management of vascular access device; Z51.5 Encounter for palliative care; Z53.29 Procedure and treatment not carried out because of patient's decision for other reasons
CPT/HCPCS: 36591; 74177; 80053; 93005; 96361; 96374; 99285; 70450; 71260; 83735; 84484; 85025; 93010; 99284; J1100; J3490

== ENCOUNTER 2020-08-25 09:06 | Outpatient (CLI) | payer BC, SELFPAY ==
--- NOTE | 2020-08-25 | DI.MRI_ITS ---
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 Both noninfused and contrast i nfused sequences were performed. IV Contrast injected was 18 cc Dotarem. COMPARISON: CT CT HEAD WO from 08/22/2020 FINDINGS: CEREBRAL PARENCHYMA: There are multiple enhancing lesions in the brain with abundant surrounding ricky a, these consistent with metastatic lesions, as suspected from the recent CT scan. There are no lesi ons in the posterior fossa. The largest lesion is in the right occipital lobe region and measures 2. 26 cm AP by 2 cm wide by 2.3 cm craniocaudal. Abundant surrounding edema. More anteriorly on the ri ght side is a slightly smaller similar-appearing enhancing lesion in the right frontal lobe measuring 1.5 by 1.6 by 1.4 cm. This exhibits abundant surrounding edema with mass effect upon the ipsilatera l right lateral ventricle and mild shift of midline structures towards the left side approximately 5 millimeters. A 3rd smaller lesion is seen in the left frontal lobe, measuring 9 x 8 millimeters. Al so at surrounding edema the white matter. There is no hemorrhage in the above lesions. PITUITARY GLAND: No mass nor parasellar abnormality. No obvious abnormality in the cavernous sinuses. FLOW VOIDS: The expected flow void are noted. No evidence of obvious aneurysm nor obvious vascular ma lformation. PARANASAL SINUSES: The visualized paranasal sinuses appear unremarkable. ORBITS: No obvious abnormal findings. IMPRESSION: 1. There are a total of 3 similar appearing enhancing intra-axial lesions, 2 on the right side and 1 on the left side with measurements as above and with abundant surrounding edema. There is approximat vita 5 millimeters shift of midline structures towards the left side. 2. There are no lesions in the posterior fossa-cerebellar hemispheres. DATA REPOSITORY:
[2020-08-25] MEDS: Gadoterate meglumine 20 ML VIAL 18 ML IVP (12:06)
[2020-08-25] MEDS: Normal Saline Flush 10 ML SYR IVP (12:06)
== END 2020-08-25 09:26 ==
PROVIDERS: PCP Internal Medicine; Visit Provider Radiology Radiation Oncology
DX: C79.31 Secondary malignant neoplasm of brain (principal); C20 Malignant neoplasm of rectum
CPT/HCPCS: 70553

== ENCOUNTER 2020-09-03 03:50 | Outpatient (RCR) | payer BC, SELFPAY ==
[2020-08-13] MEDS: Normal Saline Flush 10 ML SYR IVP (09:14)
[2020-08-13] MEDS: Heparin 500 UNITS/5 ML SYRINGE IV (09:14)
[2020-08-13 09:33] LABS: Abs Immature Grans 0.05 10^3/uL (0.0-0.06); Absolute Basophil Count 0.04 10^3/uL (0.0-0.2); Absolute Eosinophil Count 0.37 10^3/uL (0.0-0.7); Absolute Lymphocyte Count 1.32 10^3/uL (1.2-3.4); Absolute Neutrophil Count 4.62 10^3/uL (1.2-6.7); Basophils % 0.6; Eosinophils % 5.4; HCT 31.5 % (40.0-50.0); HGB 9.3 g/dL (13.5-17.5); Immature Grans % 0.7; Lymphocytes % 19.1; MCH 27.2 pg (27.0-33.0); MCHC 29.5 % (32.0-36.0); MCV 92.1 fL (80-95); MPV 8.9 fL (8.0-11.0); Monocytes % 7.2; Nucleated RBC 0 %; Platelet Count 331 10^3/uL (130-400); RBC 3.42 10^6/uL (4.36-5.78); RDW 16.3 % (11.8-14.1); RDW-SD 54.9 fL
[2020-08-13 09:47] LABS: ALT 17 U/L (16-63); AST 20 U/L (15-37); Albumin 2.8 g/dL (3.4-5.0); Alkaline Phosphatase 140 U/L (46-116); Anion Gap 6.3 mmol/L (3-11); BUN 8 mg/dL (7-18); Bilirubin, Total 0.3 mg/dL (0.2-1.0); CO2 29.7 mmol/L (21.0-32.0); CREATININE 0.9 mg/dL (0.70-1.30); Calcium 9.1 mg/dL (8.5-10.1); Chloride 106 mmol/L (98-107); Glucose 129 mg/dL (74-106); Potassium 3.6 mmol/L (3.5-5.1); Sodium 142 mmol/L (136-145); Total Protein 7.9 g/dL (6.4-8.2)
[2020-08-13 19:35] LABS: CEA 25.9 ng/mL (See Note)
[2020-08-25] MEDS: Normal Saline Flush 10 ML SYR IVP (12:47)
[2020-08-25] MEDS: Heparin 500 UNITS/5 ML SYRINGE IV (12:47)
[2020-09-03] MEDS: Normal Saline Flush 10 ML SYR IVP (09:23)
[2020-09-03 09:42] LABS: Abs Immature Grans 0.23 10^3/uL (0.0-0.06); Absolute Basophil Count 0.01 10^3/uL (0.0-0.2); Absolute Lymphocyte Count 0.74 10^3/uL (1.2-3.4); Basophils % 0.1; HCT 37.1 % (40.0-50.0); HGB 11.3 g/dL (13.5-17.5); Immature Grans % 1.8; Lymphocytes % 5.9; MCH 27.1 pg (27.0-33.0); MCHC 30.5 % (32.0-36.0); MPV 9.2 fL (8.0-11.0); Monocytes % 2.6; Neutrophils % 89.6; Nucleated RBC 0 %; Platelet Count 345 10^3/uL (130-400); RBC 4.17 10^6/uL (4.36-5.78); RDW 16.6 % (11.8-14.1); RDW-SD 54.1 fL; WBC 12.49 10^3/uL (4.4-10.8)
[2020-09-03 09:49] LABS: Absolute Monocyte Count 0.32 10^3/uL (0.1-0.8); Absolute Neutrophil Count 11.19 10^3/uL (1.2-6.7)
[2020-09-03 09:57] LABS: ALT 39 U/L (16-63); AST 19 U/L (15-37); Alkaline Phosphatase 149 U/L (46-116); Anion Gap 8.7 mmol/L (3-11); BUN 19 mg/dL (7-18); Bilirubin, Total 0.4 mg/dL (0.2-1.0); CO2 27.3 mmol/L (21.0-32.0); Calcium 8.6 mg/dL (8.5-10.1); Chloride 104 mmol/L (98-107); FREE T4 0.66 ng/dL (0.76-1.46); Glucose 153 mg/dL (74-106); Potassium 3.9 mmol/L (3.5-5.1); Sodium 140 mmol/L (136-145); TSH 0.56 uIU/mL (0.36-3.74); Total Protein 7.2 g/dL (6.4-8.2)
[2020-09-03 17:51] LABS: CEA 32.6 ng/mL (See Note)
== END 2020-09-06 23:59 | disposition home or self-care (01) ==
LOC: INF 03:50
PROVIDERS: PCP Internal Medicine; Visit Provider Internal Medicine Hematology & Oncology
DX: C20 Malignant neoplasm of rectum (principal); C78.7 Secondary malignant neoplasm of liver and intrahepatic bile duct; Z45.2 Encounter for adjustment and management of vascular access device
CPT/HCPCS: 36591; 80053; 96523; 82378; 84439; 84443; 85025

== ENCOUNTER 2020-09-24 08:00 | Outpatient (RCR) | payer BC, SELFPAY ==
[2020-09-24 08:26] LABS: Abs Immature Grans 0.28 10^3/uL (0.0-0.06); Absolute Basophil Count 0.02 10^3/uL (0.0-0.2); Absolute Eosinophil Count 0.01 10^3/uL (0.0-0.7); Absolute Lymphocyte Count 0.46 10^3/uL (1.2-3.4); Absolute Monocyte Count 0.27 10^3/uL (0.1-0.8); Absolute Neutrophil Count 4.99 10^3/uL (1.2-6.7); Basophils % 0.3; Eosinophils % 0.2; HCT 38.4 % (40.0-50.0); HGB 11.7 g/dL (13.5-17.5); Immature Grans % 4.6; Lymphocytes % 7.6; MCH 27.9 pg (27.0-33.0); MCHC 30.5 % (32.0-36.0); MCV 91.4 fL (80-95); MPV 8.8 fL (8.0-11.0); Monocytes % 4.5; Neutrophils % 82.8; Nucleated RBC 0 %; RDW 17.9 % (11.8-14.1); RDW-SD 60.1 fL; WBC 6.03 10^3/uL (4.4-10.8)
[2020-09-24 08:27] LABS: Platelet Count 170 10^3/uL (130-400)
[2020-09-24 08:48] LABS: ALT 150 U/L (16-63); AST 36 U/L (15-37); Albumin 2.6 g/dL (3.4-5.0); Alkaline Phosphatase 234 U/L (46-116); Anion Gap 10.1 mmol/L (3-11); BUN 12 mg/dL (7-18); Bilirubin, Total 0.3 mg/dL (0.2-1.0); CO2 26.9 mmol/L (21.0-32.0); CREATININE 0.9 mg/dL (0.70-1.30); Calcium 9.1 mg/dL (8.5-10.1); Chloride 101 mmol/L (98-107); FREE T4 0.88 ng/dL (0.76-1.46); Glucose 208 mg/dL (74-106); Sodium 138 mmol/L (136-145); TSH 0.67 uIU/mL (0.36-3.74); Total Protein 7.1 g/dL (6.4-8.2)
[2020-09-24] MEDS: Normal Saline Flush 10 ML SYR IVP (08:58)
[2020-09-24 18:00] LABS: CEA 50.7 ng/mL (See Note)
== END 2020-10-06 23:59 | disposition home or self-care (01) ==
LOC: INF 08:00
PROVIDERS: PCP Internal Medicine; Visit Provider Internal Medicine Hematology & Oncology
DX: C20 Malignant neoplasm of rectum (principal); C78.7 Secondary malignant neoplasm of liver and intrahepatic bile duct; Z45.2 Encounter for adjustment and management of vascular access device
CPT/HCPCS: 36591; 80053; 82378; 84439; 84443; 85025

== ENCOUNTER 2020-11-03 02:57 | Outpatient (RCR) | payer BC, SELFPAY ==
[2020-10-15] MEDS: Normal Saline Flush 10 ML SYR IVP (07:46)
[2020-10-15 07:57] LABS: Abs Immature Grans 0.83 10^3/uL (0.0-0.06); Absolute Monocyte Count 0.34 10^3/uL (0.1-0.8); HCT 37.6 % (40.0-50.0); HGB 11.7 g/dL (13.5-17.5); MCH 28.8 pg (27.0-33.0); MCHC 31.1 % (32.0-36.0); MCV 92.6 fL (80-95); Nucleated RBC 0 %; RBC 4.06 10^6/uL (4.36-5.78); RDW 17.9 % (11.8-14.1); RDW-SD 60.2 fL; WBC 11.23 10^3/uL (4.4-10.8)
[2020-10-15 08:02] LABS: Chloride 103 mmol/L (98-107); Potassium 3.8 mmol/L (3.5-5.1); Sodium 140 mmol/L (136-145)
[2020-10-15 08:17] LABS: Absolute Lymphocyte Count 1.01 10^3/uL (1.2-3.4); Absolute Neutrophil Count 9.43 10^3/uL (1.2-6.7); Diff Comment Manual Differential; Metamyelocytes % 1; Myelocytes % 3; Platelet Count 278 10^3/uL (130-400)
[2020-10-15 08:18] LABS: Anisocytosis 1+; Polychromasia Present
[2020-10-15 08:26] LABS: ALT 125 U/L (16-63); AST 45 U/L (15-37); Albumin 2.8 g/dL (3.4-5.0); Alkaline Phosphatase 351 U/L (46-116); Anion Gap 11.2 mmol/L (3-11); BUN 12 mg/dL (7-18); Bilirubin, Total 0.3 mg/dL (0.2-1.0); CO2 25.8 mmol/L (21.0-32.0); CREATININE 0.8 mg/dL (0.70-1.30); Calcium 9.1 mg/dL (8.5-10.1); FREE T4 0.78 ng/dL (0.76-1.46); Glucose 168 mg/dL (74-106); TSH 0.69 uIU/mL (0.36-3.74); Total Protein 7.1 g/dL (6.4-8.2)
[2020-10-15 17:03] LABS: CEA 44.4 ng/mL (See Note)
== END 2020-11-06 23:59 | disposition home or self-care (01) ==
LOC: INF 02:57
PROVIDERS: PCP Internal Medicine; Visit Provider Internal Medicine Hematology & Oncology
DX: C20 Malignant neoplasm of rectum (principal); C78.7 Secondary malignant neoplasm of liver and intrahepatic bile duct; R63.4 Abnormal weight loss; Z45.2 Encounter for adjustment and management of vascular access device
CPT/HCPCS: 36591; 80053; 82378; 84439; 84443; 85025

== ENCOUNTER 2020-11-03 06:16 | Inpatient (IN) | payer BC, SELFPAY ==
[2020-11-03] VITALS (52 sets, daily range): BP systolic 124–171; BP diastolic 63–154; PULSE 77–146; RESP 11–28; TEMP 37.2–38.8; O2SAT 88–98
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
[2020-11-03 07:14] LABS: Abs Immature Grans 0.27 10^3/uL (0.0-0.06); Absolute Basophil Count 0.03 10^3/uL (0.0-0.2); Absolute Eosinophil Count 0.02 10^3/uL (0.0-0.7); Absolute Lymphocyte Count 0.56 10^3/uL (1.2-3.4); Absolute Monocyte Count 0.55 10^3/uL (0.1-0.8); Absolute Neutrophil Count 9.76 10^3/uL (1.2-6.7); Basophils % 0.3; Eosinophils % 0.2; HCT 37.7 % (40.0-50.0); HGB 11.5 g/dL (13.5-17.5); Immature Grans % 2.4; MCHC 30.5 % (32.0-36.0); MPV 8.7 fL (8.0-11.0); Monocytes % 4.9; Neutrophils % 87.2; Nucleated RBC 0 %; Platelet Count 289 10^3/uL (130-400); RDW 15.8 % (11.8-14.1); RDW-SD 53.5 fL; WBC 11.19 10^3/uL (4.4-10.8)
[2020-11-03] MEDS: Lactated Ringers 2,000 ML 1000 ML IV (07:15)
[2020-11-03 07:33] LABS: ALT 86 U/L (16-63); AST 41 U/L (15-37); Albumin 2.6 g/dL (3.4-5.0); Alkaline Phosphatase 470 U/L (46-116); Anion Gap 8.1 mmol/L (3-11); BUN 18 mg/dL (7-18); Bilirubin, Total 0.6 mg/dL (0.2-1.0); CO2 28.9 mmol/L (21.0-32.0); CREATININE 0.9 mg/dL (0.70-1.30); Chloride 104 mmol/L (98-107); Glucose 135 mg/dL (74-106); Magnesium 1.7 mg/dL (1.8-2.4); Potassium 3.7 mmol/L (3.5-5.1); Sodium 141 mmol/L (136-145); Total Protein 7.1 g/dL (6.4-8.2)
--- NOTE | 2020-11-03 08:00 | RT.EKG_ITS ---
APPROVED REPORT Exam: Resting ECG Reason for Exam: tachycardia Patient Location: E HR:77 bpm ECG Measurements Heart Rate 77 AXIS NE 122 P 52 QRSd 86 QRS 9 QT 334 T 45 QTc 378 Conclusion Sinus rhythm...normal P axis, V-rate 60- 99 sinus rhythm at 77, normal axis, QTC 378, no STEMI, nondiagnostic EKG
[2020-11-03] MEDS: MAGNESIUM SULFATE 2 GM/50 ML BAG IVPB (08:22)
--- NOTE | 2020-11-03 08:30 | DI.CT_ITS ---
Exam(s) CT HEAD WO EXAM: CT HEAD WO CLINICAL HISTORY: fever, vomiting, known brain mets. TECHNIQUE: Imaging Protocol: Axial computed tomography images with coronal and sagittal reformatted images were created and reviewed COMPARISON: CT CT HEAD WO from 08/22/2020 FINDINGS: There are no skull fractures nor fluid in the visualized paranasal sinuses. No lytic skull lesions identified. Previously described multiple metastatic lesions are again noted with abundant surrounding white misha er edema and mild shift of midline structures towards the left side, base lead unchanged. There agai n appears to be relative sparing of the cerebellar hemispheres. Ventricles are not enlarged. IMPRESSION: No significant improvement compared to 08/22/2020. Multiple metastatic lesions in the brain are agai n noted with abundant surrounding white matter edema and approximately 3-4 millimeters left shift of midline structures, similar to the previous study. No skull lesions. RADIATION DOSE DELIVERED: 822.76mGy.cm Total DLP DATA REPOSITORY: All CT scans at this facility are submitted to the National Radiology Data Registry (NRDR) Dose Index Registry (DIR) with the [employer] ([employer]). RADIATION OPTIMIZATION: All CT scans at this facility use at least one of these dose optimization te chniques: automated exposure control; mA and/or kV adjustment per patient size (includes targeted exa ms where dose is matched to clinical indication); or iterative reconstruction.
[2020-11-03 08:34] LABS: Bilirubin Negative (Negative); Blood Small (Negative); Clarity Cloudy (Clear); Glucose Negative (Negative); Ketones Negative (Negative); Leukocyte Esterase Moderate (Negative); Nitrite Positive (Negative); Urobilinogen 0.2 EU/dL (Up TO 0.2)
[2020-11-03 08:36] LABS: Troponin I < 0.05 ng/mL (<0.06)
[2020-11-03 08:42] LABS: Bacteria Moderate HPF (Negative); C & S Indicated? Yes; Casts Negative LPF (Negative); Crystals Negative HPF (Negative); Epithelial Cells Few HPF (Negative); Mucus Negative (Negative); WBC >50 HPF (0-5)
[2020-11-03] MEDS: Ondansetron 4 MG/2 ML VIAL IVP (08:42)
--- NOTE | 2020-11-03 08:45 | DI.CT_ITS ---
Exam(s) CT CHEST/ABD/PEL W EXAM: CT CHEST/ABD/PEL W CLINICAL HISTORY: rectal cancer with known mets, fever. TECHNIQUE: Imaging Protocol: Axial computed tomography images with coronal and sagittal reformatted images were created and reviewed CONTRAST MATERIAL: Intravenous: Omnipaque 350 Contrast volume:100 ml Oral: None COMPARISON: CT CT CHEST/ABD/PEL W from 08/22/2020 FINDINGS: CHEST: LUNGS: There are numerous metastatic nodules throughout both lung darling. Most of these have increas ed in size. There are no pleural effusions. No inflammatory-type infiltrates evident. No new focal findings in trachea and mainstem bronchi. MEDIASTINUM: There is bilateral hilar and subcarinal adenopathy again noted. Visualized thyroid unre markable. CARDIAC: Heart size is upper normal. There is no pericardial effusion.Caliber of the thoracic aorta is within normal limits. OSSEOUS: No significant osseous lesions.. ABDOMEN: There is no ascites. LIVER: Increasing size of all of the previously described metastatic lesions in the liver. Largest m easures approximately 5 by 4 cm.. GALLBLADDER/BILIARY: No obvious gallbladder pathology. CBD is not dilated. PANCREAS: No evidence of pancreatic mass nor dilatation of the pancreatic duct. SPLEEN: Spleen is not enlarged. There are no intrasplenic lesions. Splenic and portal veins are tran nt. ADRENALS: There are no significant adrenal masses. KIDNEYS: Again noted is a nonobstructive 4 millimeter calculus in the upper pole calyx of the left ki dney. There is now left-sided hydronephrosis and hydroureter.. Lower left ureter is in case by a ab normal appearing tissue in the pelvis which has increased and mole is most probably neoplastic. ABDOMINAL AORTA: Abdominal aorta is not enlarged. LYMPH NODES: There is no retroperitoneal nor paraaortic adenopathy. ABDOMINAL WALL: Left-sided ostomy again noted. No bowel obstruction. PELVIS: There is further increase in abnormal tissue in and around the rectum region behind the urinary bladd er which most probably neoplastic although component of it does exhibit fluid density and cannot excl ude abscess. This abnormal tissue now reaches and involves the left obturator internus and left piri formis muscles. Urinary bladder wall is thickened and the bladder is slightly distended. LYMPH NODES: There is no intrapelvic nor inguinal adenopathy. GI: No evidence of appendicitis.No evidence of sigmoid diverticulitis. URINARY BLADDER: As above. REPRODUCTIVE: Prostate appears invaded. OSSEOUS: Sclerotic density in the left ischial tuberosity is most probably metastatic. Also osseous involving extending to the posterior ipsilateral left acetabulum. IMPRESSION: 1. Significant deterioration as described above. Increasing size of all pulmonary and hepatic metast atic lesions but no pleural effusions nor ascites evident. 2. Is also increasing amount of abnormal tissue in the low pelvis which is invading the prostate bed, left obturator internus and left piriformis muscles as well as the left ischial tuberosity and poste rior left acetabulum. There is also involvement of the left lower ureter causing new unilateral left -sided hydronephrosis and hydroureter. 3. There is an unchanged 4 millimeter calculus in the upper pole calyx of the left kidney. Right kid jone remains unremarkable and nonobstructed. 4. Left-sided ostomy again noted. No bowel obstruction. Findings discussed with ER physician following completion of the study. RADIATION DOSE DELIVERED: 1,382.42mGy.cm Total DLP DATA REPOSITORY: All CT scans at this facility are submitted to the National Radiology Data Registry (NRDR) Dose Index Registry (DIR) with the [employer] (ACR). RADIATION OPTIMIZATION: All CT scans at this facility use at least one of these dose optimization te chniques: automated exposure control; mA and/or kV adjustment per patient size (includes targeted exa ms where dose is matched to clinical indication); or iterative reconstruction.
[2020-11-03] MEDS: Normal Saline - Diluent 50 ML VIAL IV (09:25)
[2020-11-03] MEDS: Omnipaque 350 MG/ML 100 ML BTL IJ (09:25)
--- NOTE | 2020-11-03 10:30 | RT.EKG_ITS ---
APPROVED REPORT Exam: Resting ECG Reason for Exam: chest pain Patient Location: E HR:95 bpm ECG Measurements Heart Rate 95 AXIS DE 125 P 24 QRSd 86 QRS -3 QT 353 T 44 QTc 444 Conclusion Sinus rhythm...normal P axis, V-rate 60- 99 Probable left atrial enlargement...P >50mS, <-0.10mV V1 sinus rhythm at 95, normal axis, no STEMI, nondiagnostic EKG
[2020-11-03] MEDS: CEFEPIME 2 GM in Normal Saline 100 ML IVPB (10:45)
[2020-11-03] MEDS: VANCOMYCIN/WATER (PEG) 2 GM/400 ML BAG IVPB (11:25)
[2020-11-03 11:51] LABS: Troponin I < 0.05 ng/mL (<0.06)
[2020-11-03 12:40] LABS: Source Nasal/Nares
[2020-11-03 13:37] LABS: COVID-19 PCR Negative (Negative)
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
--- NOTE | 2020-11-03 16:15 | CHAPLAIN ---
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 He retired after being diagnosed with cancer. His , Maame, said he was given a prognosis of two to three at the time of diagnosis and has now lived beyond a bit beyond three. He woke up with a temperature this morning and Maame brought him to the ED. He was talking and responding to questions in the ED, but is now unresponsive. Family members are taking turns visiting Immanuel (his father, brothers, sister, , daughters). Immanuel is the eldest of his siblings. Maame seems to be realistic about the situation, and the idea that Immanuel may be actively dying. I will continue to visit.
[2020-11-03] MEDS: MORPHine 2 MG/ML SYR 1 MG IV/SC (16:43)
[2020-11-03] MEDS: MORPHine 1,000 MG in CADD PUMP CASSETTE 1 EACH, Normal Saline 80 ML 0.4 MG SC INF (17:09)
--- NOTE | 2020-11-03 18:55 | NUR.NOTE ---
Nursing Note: 2 home 100mg Fentanyl where removed and Anthony Julio witnessed disposal
[2020-11-04] MEDS: LORazepam 2 MG/ML VIAL IV/SC (01:24)
--- NOTE | 2020-11-04 01:43 | NUR.NOTE ---
Nursing Note: At )1:00 hrs, Bladder scan performed obtained an amount 0f 372 cc. ,R/T incontinency. Suggested to spouse at bedside to insert suarez for comfort The radio news writer tried to reinsert but unable to reinsert there is resistance . Patient is with apneic episode of breathing. , has interval of 5 seconds for deep shallow breathing. Morphine drip bolus given and Ativan 1 mg. administered in the port. Oral care rendered. Patient color remains flushed. Turned and repositioned. called daughters to come. Continue to monitor.
--- NOTE | 2020-11-04 10:25 | CHAPLAIN ---
Immanuel around 8:30. His , Maame, and two daughters were with him. They were understandably sad and grieving, but also expressed their gratitude for Immanuel's life. Maame seems to have good support from family and friends, many of whom visited yesterday. 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 Maame had spent the night in the room with Immanuel. I offered a prayer with Maame, Bisi and Rabia after Immanuel . They asked me to stay with Immanuel's body until the home arrived and I did that.
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
--- NOTE | 2020-11-04 16:13 | W.PM.DDS ---
Date of service: 11/04/20 Time of Service: 16:13 Discharge Sum: Prov Provider Consults: 11/03/20 15:07 Palliative Care Consult [CONS] Routine Consultation Status:: Follow-up needed Clarification:: Manage/follow per spec. 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 Coli UTI with bacteremia in setting of a new L-sided hydronephrosis due to his metastatic rectal cancer. He was seen by palliative care and initiated on morphine drip. He peacefully on 11/04/20 at 08:12 am and was pronounced at 08:17. We appreciate the opportunity to help take care of the patient in his final days and wish the family well. 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
== END 2020-11-04 09:50 | disposition expired | DRG 872 ==
LOC: ER 12:16 → MS 13:13
PROVIDERS: Emergency Medicine; Admitting Provider Internal Medicine; Emergency Provider Student in an Organized Health Care Education/Training Program; PCP Internal Medicine; Visit Provider Internal Medicine
DX: A41.9 Sepsis, unspecified organism (principal); C20 Malignant neoplasm of rectum; C78.7 Secondary malignant neoplasm of liver and intrahepatic bile duct; C78.00 Secondary malignant neoplasm of unspecified lung; C79.31 Secondary malignant neoplasm of brain; C79.89 Secondary malignant neoplasm of other specified sites; N39.0 Urinary tract infection, site not specified; Z51.5 Encounter for palliative care; Z93.3 Colostomy status; Z66 Do not resuscitate; Z20.822 Contact with and (suspected) exposure to COVID-19; B96.20 Unspecified Escherichia coli [E. coli] as the cause of diseases classified elsewhere
CPT/HCPCS: 36415; 74177; 80053; 87040; 87077; 87635; 93005; 96361; 96365; 96366; 96367; 96368; 96375; 99285; 70450; 71260; 81003; 81015; 83605; 83735; 84484; 85025; 87086; 87186; 93010; 99221; 99238; J2060; J2270; J2405; J3490